=== PATIENT | male | born 1970 | race Caucasian/White ===

== ENCOUNTER 2019-06-23 12:57 | Emergency (ER) | payer SELFPAY ==
[2019-06-23 12:58] VITALS: BP 125/90; PULSE 50; RESP 18; TEMP 36.5; O2SAT 98; BMI 38.1
--- NOTE | 2019-06-23 13:26 | ED_ITS ---
HPI - Dizziness General: Chief Complaint: Dizziness Stated Complaint: gonzalez x 1 week, dizzy Time Seen by Provider: 06/23/19 13:12 Source: patient Mode of arrival: ambulatory Limitations: no limitations History of Present Illness: HPI Narrative: Patient comes in today for complaints of dizziness and headache for 1 week. Patient thought it may have just been his sinuses but became more concerned due to persistence of symptoms and his dizziness at times. Patient has a history of NE. Patient also takes routine medications for chronic foot pain. Patient appears well. Patient a ppears in no acute distress or pain. Associated symptoms: Reports headache(s) Review of Systems General: Reports: 10 or more systems reviewed and unremarkable except in HPI and below Neuro: Reports: headache and dizziness PFSH ED PFSH: Statuses (acute, chronic, etc) shown below reflect problem list status as previously entered and may not be historically accurate Social History Smoking and tobacco status: never smoked Physical Exam Const: COMMON NORMALS: no apparent distress and oriented x3 GENERAL APPEARANCE: cooperative HENMT: COMMON NORMALS: normocephalic, external ears normal, EAC's normal, TM's normal bilaterally and external nose normal HEAD & SCALP: normal to inspection and normocephalic FACE & SINUS: normal facial exam NOSE: external nose normal GENERAL EAR: hearing not grossly impaired EXTERNAL EAR: Yes external ears normal EXTERNAL AUDITORY CANAL: EAC's normal TYMPANIC MEMBRANE: TM's normal bilaterally MOUTH: oral and palatal mucosa normal THROAT: posterior oropharynx abnormal (post nasal drip) Eye: COMMON NORMALS: PERRL and EOMs intact bilaterally PUPIL: Yes PERRL Neck/C-Spine: COMMON NORMALS: full ROM and no lymphadenopathy Lymph: LYMPHATIC: no lymphedema noted Chest: COMMONS NORMALS: inspection of chest normal and palpation of chest normal Resp: COMMON NORMALS: normal respiratory effort and clear to auscultation bilaterally AUSCULTATION: clear to auscultation bilaterally Cardio: COMMON NORMALS: regular rate and regular rhythm RATE: regular rate RHYTHM: regular rhythm GI: COMMON NORMALS: normal to inspection, nondistended, normoactive bowel sounds and non-tender : COMMON NORMALS: Yes no CVA tenderness BLADDER/KIDNEY EXAM: Yes no CVA tenderness Back/Pelvis: COMMON NORMALS: no CVA tenderness and thoracic and lumbar spine normal to inspection Extremity: COMMON NORMALS: normal to inspection GENERAL: No edema Neuro: COMMON NORMALS: oriented x3, moves all extremities and no focal motor deficits Psych: COMMON NORMALS: mental status grossly normal and cooperative Skin: COMMON NORMALS: no rashes or lesions noted GENERAL SKIN EXAM: no rashes or lesions noted Course Vital Signs: Vital signs: Vital Signs Temperature 97.7 F 06/23/19 12:58 Pulse Rate 57 L 06/23/19 14:47 Respiratory Rate 16 06/23/19 14:47 Blood Pressure 119/75 06/23/19 14:47 Pulse Oximetry 97 06/23/19 14:47 MDM - Dizziness MDM Narrative: Medical decision making narrative: Patient comes in today with complaints of dizziness and nausea for 1 week. Patient also has an occasional headache. Patient appears well. Exam notes some dull bilateral tympanic membranes. Posterior pharynx has some drainage. Lungs are clear to auscultation. Skin is warm and dry and color is pink. Vital signs are stable. Differential diagnosis includes PE, CVA, TIA, uncontrolled hypertension, vestibular neuritis, sinusitis, otitis media. Laboratory values were insignif icant. CT of the head was negative for abnormality. D-dimer was negative. Believe the patient probably has vestibular neuritis. Recommend patient be given injection dexamethasone to help with the nausea and the dizziness. Patient should be treated otherwise with meclizine and amoxicillin. Encourage fluids rest and follow-up with primary care for persistent or worsening symptoms. Lab Data: Labs: Lab Results 06/23/19 06/23/19 06/23/19 Range/Units 13:56 13:56 13:56 WBC 5.1 (4.0-10.0) 10^3/ uL RBC 4.61 (4.1-5.3) 10^6/u L Hgb 14.2 (11.7-16.6) g/dL Hct 42.1 (42.0-52.0) % MCV 91.3 (80-94) fL MCH 30.8 (28.0-34.0) pg MCHC 33.7 (30.0-36.0) g/dL RDW 12.7 (12.1-15.1) % Plt Count 139 (130-400) 10^3/c mm MPV 10.1 (7.4-10.4) fL Neut % (Auto) 45.5 % Lymph % (Auto) 43.6 % Heard % (Auto) 7.3 % Eos % (Auto) 2.8 % Baso % (Auto) 0.6 % Neut # (Auto) 2.3 (1.8-7.7) 10^3/u L Lymph # (Auto) 2.2 (0.8-4.8) 10^3/u L Heard # (Auto) 0.4 (0.2-0.9) 10^3/u L Eos # (Auto) 0.1 (0.0-0.8) 10^3/u L Baso # (Auto) 0.0 (0.0-0.1) 10^3/u L Nucleated RBC % (a uto) 0 % Nucleated RBCs # 0.0 /100WBC D-Dimer 0.59 (0-0.59) ug/mIFE U Sodium 137 (136-145) mmol/L Potassium 4.0 (3.5-5.1) mmol/L Chloride 104 (98-107) mmol/L Carbon Dioxide 23 (22-29) mmol/L Anion Gap 14.0 (5-19) BUN 19 (6-20) mg/dL Creatinine 0.8 (0.7-1.2) mg/dL GFR Calculation 102.7 (90-130) mL/min Glucose 202 H (74-109) mg/dL Calcium 9.5 (8.6-10.0) mg/Dl Total Bilirubin 0.9 (0.15-1.2) mg/dL AST 19 (0-40) U/L ALT 23 (0-41) U/L Alkaline Phosphata se 69 (40-130) IU/L Total Protein 6.3 L (6.6-8.7) g/dL Albumin 4.4 (3.5-5.2) g/dL Globulin 1.9 (1.3-4.6) g/dL Discharge Plan Discharge Patient Disposition: Home, Self-Care Clinical Impression: Acute vestibular neuronitis Qualifiers: Laterality: unspecified laterality Qualified Code(s): H81.20 - Vestibular neuronitis, unspecified ear Condition: Stable Prescriptions: New meclizine 25 mg tablet 25 mg PO TID PRN (Reason: dizziness) Qty: 20 RF: 0 amoxicillin 500 mg capsule 1,000 mg PO Q12H 7 Days Qty: 28 RF: 0 No Action atorvastatin 40 mg Tablet 40 mg PO DAILY RF: 0 metformin 500 mg Tablet 500 mg PO BID RF: 0 Vitamin B-12 2,500 mcg Tablet, Sublingual 2,500 mcg SUBLINGUAL BID RF: 0 sulfasalazine 500 mg Tablet 0.5 g PO BID RF: 0 aspirin 325 mg Tablet 325 mg PO DAILY RF: 0 Vitamin C 500 mg Tablet 500 mg PO BID RF: 0 indomethacin 50 mg Capsule 100 mg PO BID RF: 0 multivitamin Capsule 1 cap PO DAILY RF: 0 metoprolol tartrate 25 mg Tablet 12.5 mg PO BID RF: 0 Fish Oil 1,000 mg (120 mg-180 mg) Capsule 1 cap PO BID RF: 0 clopidogrel 75 mg 75 mg PO DAILY RF: 0 Discharge Orders: Discharge Order (Routine); Ordered 06/23/19 Ordered By: Ishan Collins Referrals: Alok Gonzales MD [Primary Care Provider] - Discharge Diet: Usual diet Discharge Activity: Resume usual activity Activity Restrictions/Additional Instructions: Activity as tolerated Change position slowly Drink plenty of water Follow-up with primary care in one week for recheck Return to ER for high fever, worsening headache or new concerns Discharge Date/Time: 06/23/19 14:54 Coding Level of Care Code ED [employer]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
--- NOTE | 2019-06-23 13:26 | CT_ITS ---
WS: [id number] CT HEAD TECHNIQUE: Noncontrast CT of the head obtained from the skullbase to the vertex. CLINICAL INFORMATION: dizziness COMPARISON: 018 DLP: 8[address] scans at [facility] use at least one of these dose optimization techniques: automat ed exposure control; mA and/or kV adjustment per patient size (includes targeted exams where dose is matched to clinical indication); or iterative reconstruction. FINDINGS: No evidence of intracranial hemorrhage or mass effect. Ventricular system and basal cisterns are hoover nt. No extra-axial fluid collections. No evidence of mass or mass effect. Normal benitez-white different iation. Paranasal sinuses and mastoid air cells are well aerated. .Normal visualized soft tissues. CT/CT head wo con* [id number] IMPRESSION: 1. No evidence of intracranial hemorrhage or mass effect. 2. Normal benitez-white differentiation. 3. No acute intracranial findings.
--- NOTE | 2019-06-23 13:40 | ECG_ITS ---
Measurements Intervals [place] Rate: 61 P: 43 MI: 136 QRS: 66 QRSD: 106 T: 60 QT: 428 QTc: 431 SINUS RHYTHM WITH OCCASIONAL ECTOPIC PREMATURE COMPLEXES POSSIBLE INFERIOR MYOCARDIAL INFARCTION , PROBABLY OLD [30 ms Q WAVE IN II/aVF] Compared to ECG 07/02/2017 16:44:55 No significant changes Electronically Signed On 06-23-2019 14:41:44 PAGE MAKEUP SYSTEM OPERATOR by Harsha Conner M.D. [email or web address]
[2019-06-23 14:19] LABS: Basophils % 0.6 %; Eosinophils # 0.1 10^3/uL (0.0-0.8); Eosinophils % 2.8 %; Hematocrit 42.1 % (42.0-52.0); Hemoglobin 14.2 g/dL (11.7-16.6); Lymphocytes # 2.2 10^3/uL (0.8-4.8); Lymphocytes % 43.6 %; Mean Corpuscular HGB Conc 33.7 g/dL (30.0-36.0); Mean Corpuscular Hemoglobin 30.8 pg (28.0-34.0); Mean Corpuscular Volume 91.3 fL (80-94); Mean Platelet Volume 10.1 fL (7.4-10.4); Monocytes # 0.4 10^3/uL (0.2-0.9); Monocytes % 7.3 %; Neutrophils # 2.3 10^3/uL (1.8-7.7); Neutrophils % 45.5 %; Nucleated Red Blood Cells % 0 %; Platelet Count 139 10^3/cmm (130-400); Red Blood Count 4.61 10^6/uL (4.1-5.3); Red Cell Distribution Width 12.7 % (12.1-15.1); White Blood Count 5.1 10^3/uL (4.0-10.0)
[2019-06-23 14:35] LABS: D Dimer 0.59 ug/mIFEU (0-0.59)
[2019-06-23 14:38] LABS: Alanine Aminotransferase 23 U/L (0-41); Albumin Level 4.4 g/dL (3.5-5.2); Alkaline Phosphatase 69 IU/L (40-130); Aspartate Amino Transferase 19 U/L (0-40); Blood Urea Nitrogen 19 mg/dL (6-20); Calcium 9.5 mg/Dl (8.6-10.0); Carbon Dioxide 23 mmol/L (22-29); Chloride 104 mmol/L (98-107); Globulin 1.9 g/dL (1.3-4.6); Glomerular Filtration Rate 102.7 mL/min (90-130); Glucose 202 mg/dL (74-109); Sodium 137 mmol/L (136-145); Total Bilirubin 0.9 mg/dL (0.15-1.2); Total Protein 6.3 g/dL (6.6-8.7)
[2019-06-23] MEDS: dexamethasone 10 mg/mL INJ IM (14:45)
[2019-06-23 14:47] VITALS: BP 119/75; PULSE 57; RESP 16; O2SAT 97
== END 2019-06-23 14:54 | disposition home or self-care (01) ==
PROVIDERS: Emergency Provider Nurse Practitioner Family; Family Provider Family Medicine; PCP Family Medicine
DX: H81.20 Vestibular neuronitis, unspecified ear (principal); Z79.02 Long term (current) use of antithrombotics/antiplatelets; Z79.84 Long term (current) use of oral hypoglycemic drugs; Z79.82 Long term (current) use of aspirin
CPT/HCPCS: 36415; 70450; 80053; 85025; 85378; 93005; 96372; 99281; J1100

== ENCOUNTER → 2019-11-14 08:34 | Outpatient (BNVA) | payer BC, SELFPAY | PROVIDERS: Family Provider Family Medicine; PCP Family Medicine; Referring Provider Family Medicine; Visit Provider Orthopaedic Surgery | DX: M25.562 Pain in left knee (principal); M11.262 Other chondrocalcinosis, left knee; M22.42 Chondromalacia patellae, left knee; M25.561 Pain in right knee; M76.891 Other specified enthesopathies of right lower limb, excluding foot | CPT/HCPCS: 73560; 73565 ==

== ENCOUNTER 2019-11-23 14:45 | Outpatient (CLI) | payer SELFPAY ==
--- NOTE | 2019-11-23 15:15 | MR_ITS ---
WS: [id number] MRI LEFT KNEE HISTORY: M79.606 Pain in leg, unspecified COMPARISON: 2019 Anterior cruciate ligament: Intact. Posterior cruciate ligament: Intact. Medial collateral ligament: MCL is intact. Mild displacement by osteophytes from the medial knee. Posterior lateral corner structures: Fibular collateral ligament is intact. There is a small amount o f increased signal within the posterior lateral corner ligament. No full-thickness tear. Medial menisci: Horizontal tear in the posterior horn. Tear extends to the inferior articular surface . Lateral meniscus: Abnormal signal throughout the anterior horn. Anterior horn is small caliber and pa rtially extruded from the joint line. Mild blunting of the free edge of the posterior horn. Extensor mechanism: Distal quadriceps tendon is normal. Small amount of increased signal in the dista l patellar tendon. Fluid and soft tissue: Small to moderate suprapatellar joint effusion. There is soft tissue edema selam rounding the knee and a small amount of fluid surrounding the femoral condyles. Moderate-sized Timmons' s cyst. Osseous and articular structures: Patellofemoral compartment: Mild loss of cartilage over the patella. Focal defect over the lateral pa tellar facet from loss of cartilage. No marrow edema. Medial compartment: Moderate narrowing medial compartment with small osteophytes abutting the MCL. Lo ss of cartilage along the knee joint. No marrow with edema. Lateral compartment: Moderate narrowing of the lateral compartment. Meniscus is partially extruded fr om the joint space. There is a small cyst adjacent to the extruded meniscus. There is loss of cartila ge with fissuring throughout the compartment. No marrow edema. MR/MR knee LT wo con* [id number] IMPRESSION: 1. Moderate medial and lateral compartment internal derangement. 2. Extruded meniscus from the lateral compartment with a complex tear in the a nterior horn and blunting of the free edge of the posterior horn. 3. Horizontal tear posterior horn medial meniscus. 4. Moderate joint effusion. 5. Moderate-sized Timmons's cyst. 6. No fracture or marrow edema.
== END 2019-11-23 14:46 | disposition home or self-care (01) ==
LOC: RADSHAW 14:46
PROVIDERS: PCP Family Medicine; Visit Provider Orthopaedic Surgery
DX: S83.242A Other tear of medial meniscus, current injury, left knee, initial encounter (principal); X58.XXXA Exposure to other specified factors, initial encounter; M25.462 Effusion, left knee; M71.22 Synovial cyst of popliteal space [Baker], left knee
CPT/HCPCS: 73721

== ENCOUNTER → 2019-12-04 15:40 | Outpatient (BNVA) | payer BC, SELFPAY | PROVIDERS: PCP Family Medicine; Visit Provider Orthopaedic Surgery | DX: M25.572 Pain in left ankle and joints of left foot (principal) | CPT/HCPCS: 73610 ==

== ENCOUNTER 2019-12-13 09:20 | Day surgery (SDC) | payer BC, SELFPAY ==
[2019-12-12 08:18] VITALS: BMI 42.5
[2019-12-13] VITALS (8 sets, daily range): BP systolic 104–136; BP diastolic 73–105; PULSE 47–65; RESP 14–18; TEMP 36.3–37; O2SAT 95–100
--- NOTE | 2019-12-13 09:49 | W.PM.OPSUD ---
Surgery/Procedure H&P Update DATE OF PROCEDURE: December 13, 2019 DATE H&P PERFORMED: 12/04/19 H&P UPDATE INFORMATION: I have reviewed H&P completed within last 30 days and No changes to prior documentation PREOP DIAGNOSIS: Left medial meniscal tear, osteoarthritis left knee PLANNED PROCEDURE: Operation Date: 12/13/19 10:50 Proposed Procedures p Knee Arthroscopy medial meniscetomy and other indicated procedures [id number] S83.207A(Left) - Cirilo Merida MD
[2019-12-13] MEDS: sodium chloride 0.9% 1,000 ML 30 ML IV (10:16)
--- NOTE | 2019-12-13 10:26 | ANES.PREANE2 ---
Pre-Anesthetic Assessment Pre-Anesthetic Assessment: Height/Weight: Height 1.91 m Weight 154.221 kg Temp Pulse Resp BP Pulse Ox 97.4 F L 47 L 18 136/105 97 12/13/19 09:57 12/13/19 09:57 12/13/19 09:57 12/13/19 09:57 12/13/19 09:57 Preop Diagnosis: Left medial meniscal tear, osteoarthritis left knee Proposed Procedure: Operation Date: 12/13/19 10:50 Proposed Procedures p Knee Arthroscopy medial meniscetomy and other indicated procedures 34476 S83.207A(Left) - Cirilo Merida MD Familial anesthetic complications: Dad takes a long time to wake up from anesthesia Was Beta Binh taken within 24 hours: Yes Last intake: Intake Last Liquid Date 12/13/19 Last Liquid Time 08:30 Last Solid Date 12/12/19 Last Solid Time 19:55 Social: Social History: No alcohol and No tobacco Exam: Pre-Anes Outpt Exam: alert, oriented x 3, clear to auscultation bilaterally and regular rate & rhythm Airway: Cervical ROM: WNL MP: 4 Dentition: Other (Missing) Additional comments: says his septum is deviated (R > L) Pulmonary: Pulmonary: None reported CV/HEM: CV/HEM: CAD, HTN and CO (2012 - stents) Comments: last took plavix wednesday : : None reported Hepatic: Hepatic: None reported GI: GI: None reported Metabolic: Metabolic: DM and Morbid obesity Musc/skel: Comments: shoulder and neck pain Neuropsych: Neuropsych: None reported Anesthetic Plan: ASA status: 3 Anesthesia: General Risk of > 500 ml blood loss (7ml/kg in children): No Meds/Allergies Current Medications: Current Medications Generic Name Dose Route Start Last Admin Trade Name Freq PRN Reason Stop Dose Admin Sodium Chloride 1,000 mls @ 30 ml s/hr 12/13/19 09:45 12/13/19 10:16 Sodium Chloride 0.9% IV 12/14/19 09:44 30 mls/hr .Q24H JIMBO Administration PFSH Anesthesia PFSH: Social History Smoking and tobacco status: never smoked Second hand smoke exposure: No Current gender identity: Male Special hayden needs: No Data Anesthesia Cardiac Studies: No Data to Display
[2019-12-13 10:36] LABS: Glucose Point of Care 170 mg/dL (70-110)
[2019-12-13] MEDS: midazolam 1 mg/mL INJ 2 mL 2 MG IVP (10:39)
[2019-12-13] MEDS: morphine 4 mg/mL SDV 1 mL 8 MG XX (11:19)
--- NOTE | 2019-12-13 12:03 | PM.OP ---
Operative Report Date of procedure: December 13, 2019 Pre-op Diagnosis: Left medial meniscal tear, osteoarthritis left knee Post-op diagnosis: other (Left posterior medial meniscal tear, left anterior lateral meniscal tear, osteoarthritis left knee) Post-op Findings: Patient has complex tearing of the posterior middle third of the medial meniscus. He had a complex tear of his anterior lateral meniscus. He had generalized degenerative chondromalacia throughout the knee with thinning fibrillation and fraying of cartilage over the medial femoral condyle, lateral femoral condyle, patella and trochlea Procedure Done: Arthroscopic partial left medial and lateral meniscectomies Pathology: none sent Surgeon: Cirilo Merida Anesthesia: General Estimated blood loss (mL): 10 Tourniquet time (min): 22 Complications: None Findings: The patient had complex tearing involving the central 50% of the posterior medial meniscus. He had complex tearing involving approximately 75% of the anterior lateral meniscus. There is generalized fibrillation and thinning of the cartilage over the medial femoral condyle, lateral femoral condyle, patella and trochlea but no exposed subchondral bone was identified. His central stabilizing ligaments were intact. Condition: stable Disposition: PACU Procedure: The patient was taken to the operating room and given a general anesthesia. He was given Ancef preoperatively. His left lower extremity was prepped and draped in the usual fashion with a tourniquet on the left thigh. The knee was infiltrated with 30 cc of 0.5% Marcaine and 10 mg of morphine. The knee was entered through the standard inferior medial and inferior lateral portal. Upon entering the knee there is some generalized bleeding and the tourniquet was inflated to 350 mmHg. The medial meniscus was initially carefully probed. The slight valgus force across the knee allowed satisfactory axis the meniscus and a complex tearing was identified in the posterior third of the meniscus. Utilizing a basket, 4.5 mm incisor shaver, and Flores and Nephew Werewolf probe approximately the central 50% of the meniscus were excised leaving a stable base of tissue. Areas of fibrillation and fissures over the medial femoral condyle were lightly debrided back to a stable base. No point was exposed subchondral bone identified but cartilage loss was thought to extend more than 50% of that condyle. The leg was then placed in a [id number] position where complex tearing was identified of the lateral meniscus. Utilizing an incisor shaver and Flores and Nephew Werewolf unstable flaps and fissures the lateral meniscus were debrided. Approximately 70% of the anterior lateral meniscus was removed. Areas of fibrillation and fraying similarly over the lateral femoral condyle were lightly debrided back as performed medially again revealing no exposed subchondral bone. Finally attention was focused on the patella and trochlea. Areas of trochlear wear with peripheral flaps medially and laterally over the trochlea were debrided back with the werewolf probe. Involvement of cartilage was thought to be at least 50% but no exposed subchondral bone was identified. Final attention was focused to the underside of the patella which was similarly debrided again revealing no exposed subchondral bone but thinning of the cartilage. The knee was then irrigated with saline. Portals were closed with 3-0 Prolene. The patient was extubated and taken to the recovery room in stable condition.
[2019-12-13] MEDS: ondansetron 2 mg/ML SDV 2 mL 4 MG IVP (12:33)
[2019-12-13] MEDS: metoclopramide 5 mg/mL SDV 2 mL 10 MG IVP (13:17)
[2019-12-13] MEDS: oxyCODONE-APAP 5-325 mg Tablet 1 TAB PO (13:50)
== END 2019-12-13 14:30 | disposition home or self-care (01) ==
PROVIDERS: PCP Family Medicine; Visit Provider Orthopaedic Surgery
PROC: (CPT 29870; principal; 2019-12-13 10:50)
DX: S83.242A Other tear of medial meniscus, current injury, left knee, initial encounter (principal); X58.XXXA Exposure to other specified factors, initial encounter; M17.12 Unilateral primary osteoarthritis, left knee; I25.10 Atherosclerotic heart disease of native coronary artery without angina pectoris; I10 Essential (primary) hypertension; I25.2 Old myocardial infarction; Z95.5 Presence of coronary angioplasty implant and graft; E11.9 Type 2 diabetes mellitus without complications; E66.01 Morbid (severe) obesity due to excess calories; Z68.41 Body mass index [BMI] 40.0-44.9, adult; Z79.02 Long term (current) use of antithrombotics/antiplatelets; Z79.82 Long term (current) use of aspirin; Z79.84 Long term (current) use of oral hypoglycemic drugs
CPT/HCPCS: 29880; 12345; 36416; 82962; 96365; 96374; 96375; J0690; J1100; J2001; J2250; J2270; J2405; J2704; J2765; J3010; J3490; J7030

== ENCOUNTER 2021-01-29 22:26 | Emergency (ER) | payer SELFPAY ==
[2021-01-29 23:31] VITALS: BP 118/26; PULSE 105; RESP 24; TEMP 37.3; O2SAT 93; BMI 39.2
--- NOTE | 2021-01-29 23:50 | XRR_ITS ---
PROCEDURE INFORMATION: Exam: XR Chest Exam date and time: 01/29/2021 11:50 PM Age: 51 years old Clinical indication: Cough and shortness of breath; Additional info: Covid, cough TECHNIQUE: Imaging protocol: XR of the chest. Views: 1 view. COMPARISON: 1. CR XR knees AP WB w RT lmt ORTH 2019-11-14 08:[address] Cervical Spine wo* [id number] 2017-07-02 17:22 3. ES surgery / GI images 2019-12-13 10:27 FINDINGS: Lungs: Mild moderate patchy lung opacities. Pleural spaces: Unremarkable. No pleural effusion. No pneumothorax. Heart/Mediastinum: Unremarkable. No cardiomegaly. Bones/joints: Unremarkable. XR/XR chest 1V portable [id number] IMPRESSION: Mild moderate patchy lung opacities.
[2021-01-30 00:56] LABS: Glucose Point of Care 254 mg/dL (70-110)
--- NOTE | 2021-01-30 00:58 | W.ED.SOB ---
HPI - SOB/Dyspnea General: Chief Complaint: Shortness of Breath/Dyspnea Stated Complaint: Covid\Dehydrated Time Seen by Provider: 01/30/21 00:09 Source: patient Mode of arrival: ambulatory Limitations: no limitations History of Present Illness: HPI Narrative: 51-year-old male states he is been feeling unwell for last 7 to 10 days. States his girlfriend was diagnosed with Covid over 2 weeks ago when he started to feel sick about 9 to 10 days ago. He states he been having body aches chills and fevers. States had decreased appetite along with nausea and decreased energy. He has had a slight cough and shortness of breath. Denies any diarrhea. He denies any worsening improving factors. Patient here has no severe distress and pulse ox is normal. He is able to speak in full sentences. Associated symptoms: Reports fever(s) and nausea; Deny chest pain Review of Systems Const: Reports: fever(s), chills and body aches Eyes: Denies: blurry vision or eye discomfort ENMT: Denies: throat pain or dental pain Card: Denies: chest pain Resp: Reports: non-productive cough; Denies: dyspnea GI: Reports: nausea : Denies: dysuria Musc: Denies: neck pain or back pain Skin/Breast: Denies: rash Neuro: Denies: headache(s) Psych: Denies: depression Tadeo/Lymph: Denies: easy bruising All/Imm: Denies: urticaria PFS ED PFSH: Medical History (Updated 01/30/21 @ 04:48 by David Schneider MD) Chest pain Shortness of breath Social History Smoking and tobacco status: never smoked Second hand smoke exposure: No Current gender identity: Male Special hayden needs: No Physical Exam Const: COMMON NORMALS: no acute distress and patient oriented x3 GENERAL APPEARANCE: ill appearing HENMT: COMMON NORMALS: normocephalic and atraumatic HEAD & SCALP: normocephalic and atraumatic Eye: COMMON NORMALS: Equal, round and reactive pupils present and EOMs intact bilaterally PUPIL: Yes Equal, round and reactive pupils present Neck/C-Spine: COMMON NORMALS: full ROM and supple Chest: COMMONS NORMALS: normal inspection of the chest and normal palpation of entire chest wall Resp: COMMON NORMALS: normal respiratory effort, No retractions, No use of accessory muscles and clear to auscultation bilaterally AUSCULTATION: clear to auscultation bilaterally Cardio: COMMON NORMALS: regular rate, regular rhythm and No murmurs present (Cardio) RATE: regular rate RHYTHM: regular rhythm GI: COMMON NORMALS: Normal to inspection, nondistended, normoactive bowel sounds present, Soft to palpation, non-tender and no masses PALPATION: Yes Soft to palpation Extremity: COMMON NORMALS: normal to inspection and full ROM Neuro: COMMON NORMALS: patient oriented x3, moves all extremities and no focal motor deficits Psych: COMMON NORMALS: mental status grossly normal, Normal thought process present and cooperative THOUGHT PROCESS: Normal thought process present Skin: COMMON NORMALS: no rashes or lesions noted and no wounds GENERAL SKIN EXAM: no rashes or lesions noted Course Vital Signs: Vital signs: Vital Signs Temperature 99.1 F 01/29/21 23:31 Pulse Rate 89 01/30/21 05:32 Respiratory Rate 14 01/30/21 05:32 Blood Pressure 120/81 01/30/21 05:32 Pulse Oximetry 90 01/30/21 05:32 MDM - SOB/Dyspnea MDM Narrative: Medical decision making narrative: Patient presents here with cough congestion dyspnea likely pneumonia or viral pneumonia. His rapid Covid was negative will do a send off as he has had contact and this very well could be Covid as well. Will place patient on antibiotics. His lab work here is otherwise normal and he has no hypoxia here. He had some abdominal pain CT abdomen here was normal. Patient sent home with a pulse ox and he is return if he has any hypoxia. He understands and agrees to plan. Lab Data: Labs: Lab Results 01/30/21 01/30/21 01/30/21 Range/Units 00:51 01:15 01:15 WBC 8.1 (4.0-10.0) 10^3/ uL RBC 4.63 (4.1-5.3) 10^6/u L Hgb 14.9 (11.7-16.6) g/dL Hct 43.0 (42.0-52.0) % MCV 92.9 (80-94) fl MCH 32.2 (28.0-34.0) pg MCHC 34.7 (30.0-36.0) g/dL RDW 11.7 L (12.1-15.1) % Plt Count 157 (130-400) 10^3/c mm MPV 10.9 H (7.4-10.4) fL Neut % (Auto) 65.6 % Lymph % (Auto) 19.7 % [place] % (Auto) 13.1 % Eos % (Auto) 0.7 % Baso % (Auto) 0.4 % Neut # (Auto) 5.32 (1.8-7.7) 10^3/u L Lymph # (Auto) 1.6 (0.8-4.8) 10^3/u L [place] # (Auto) 1.1 H (0.2-0.9) 10^3/u L Eos # (Auto) 0.1 (0.0-0.8) 10^3/u L Baso # (Auto) 0.0 (0.0-0.1) 10^3/u L Nucleated RBC % (a uto) 0 % Nucleated RBCs # 0.0 /100WBC Sodium 132 L (136-145) mmol/L Potassium 4.5 (3.5-5.1) mmol/L Chloride 93 L (98-107) mmol/L Carbon Dioxide 24 (22-29) mmol/L Anion Gap 19.5 H (5-19) BUN 8 (6-20) mg/dL Creatinine 0.7 (0.7-1.2) mg/dL GFR Calculation 118.9 (90-130) mL/min Glucose 235 H (65-115) mg/dL POC Glucose 254 H (70-110) mg/dL Calculated Osmolal ity 280 L (285-295) mOsm/k g Lactic Acid (0.5-2.2) mmol/L Calcium 9.2 (8.5-10.5) mg/dL Total Bilirubin 1.3 H (0.15-1.2) mg/dL AST 30 (0-40) U/L ALT 35 (0-41) U/L Alkaline Phosphata se 75 (40-130) IU/L C-Reactive Protein 126.4 H (0.0-4.9) mg/L Total Protein 7.0 (6.6-8.7) g/dL Albumin 3.8 (3.5-5.2) g/dL Globulin 3.2 (1.3-4.6) g/dL Urine Color (Yellow) Urine Appearance (CLEAR) Urine pH (5-7) Ur Specific Gravit y (1.005-1.030) Urine Protein (Negative) Urine Glucose (UA) (Normal) Urine Ketones (Negative) Urine Blood (Negative) Urine Nitrate (Negative) Urine Bilirubin (Negative) Urine Urobilinogen (Negative) mg/dL Ur Leukocyte Shanta ase (Negative) SARS-CoV-2 Ag (Rap id) (Negative) 01/30/21 01/30/21 01/30/21 Range/Units 01:15 01:25 02:25 WBC (4.0-10.0) 10^3/ uL RBC (4.1-5.3) 10^6/u L Hgb (11.7-16.6) g/dL Hct (42.0-52.0) % MCV (80-94) fl MCH (28.0-34.0) pg MCHC (30.0-36.0) g/dL RDW (12.1-15.1) % Plt Count (130-400) 10^3/c mm MPV (7.4-10.4) fL Neut % (Auto) % Lymph % (Auto) % [place] % (Auto) % Eos % (Auto) % Baso % (Auto) % Neut # (Auto) (1.8-7.7) 10^3/u L Lymph # (Auto) (0.8-4.8) 10^3/u L [place] # (Auto) (0.2-0.9) 10^3/u L Eos # (Auto) (0.0-0.8) 10^3/u L Baso # (Auto) (0.0-0.1) 10^3/u L Nucleated RBC % (a uto) % Nucleated RBCs # /100WBC Sodium (136-145) mmol/L Potassium (3.5-5.1) mmol/L Chloride (98-107) mmol/L Carbon Dioxide (22-29) mmol/L Anion Gap (5-19) BUN (6-20) mg/dL Creatinine (0.7-1.2) mg/dL GFR Calculation (90-130) mL/min Glucose (65-115) mg/dL POC Glucose (70-110) mg/dL Calculated Osmolal ity (285-295) mOsm/k g Lactic Acid 2.5 H (0.5-2.2) mmol/L Calcium (8.5-10.5) mg/dL Total Bilirubin (0.15-1.2) mg/dL AST (0-40) U/L ALT (0-41) U/L Alkaline Phosphata se (40-130) IU/L C-Reactive Protein (0.0-4.9) mg/L Total Protein (6.6-8.7) g/dL Albumin (3.5-5.2) g/dL Globulin (1.3-4.6) g/dL Urine Color Yellow (Yellow) Urine Appearance Clear (CLEAR) Urine pH 7 (5-7) Ur Specific Gravit y 1.000 L (1.005-1.030) Urine Protein Neg (Negative) Urine Glucose (UA) 2+ H (Normal) Urine Ketones 1+ H (Negative) Urine Blood Neg (Negative) Urine Nitrate Negative (Negative) Urine Bilirubin Neg (Negative) Urine Urobilinogen Norm (Negative) mg/dL Ur Leukocyte Shanta ase Negative (Negative) SARS-CoV-2 Ag (Rap id) Negative (Negative) Imaging Data^: CXR: Attestation: I personally reviewed and interpreted this imaging study as follows: Radiologist's impression: [address] [address] XRay Report Signed Patient: Stanley Betts Unit #: [id number] : 1970 Age/Sex: 51 / M ADM Date: 01/29/21 Loc: ER Room/Bed: Attending Dr: Ordering Provider/Ordering MD: Ishan Collins NP Date of Service: 01/29/21 Procedure(s): XR chest 1V portable [id number] Accession Number(s): [id number] Report Number: [id number] PROCEDURE INFORMATION: Exam: XR Chest Exam date and time: 01/29/2021 11:50 PM Age: 51 years old Clinical indication: Cough and shortness of breath; Additional info: Covid, cough TECHNIQUE: Imaging protocol: XR of the chest. Views: 1 view. COMPARISON: 1. CR XR knees AP WB w RT lmt ORTH 2019-11-14 08:[address] Cervical Spine wo* [id number] 2017-07-02 17:22 3. ES surgery / GI images 2019-12-13 10:27 FINDINGS: Lungs: Mild moderate patchy lung opacities. Pleural spaces: Unremarkable. No pleural effusion. No pneumothorax. Heart/Mediastinum: Unremarkable. No cardiomegaly. Bones/joints: Unremarkable. XR/XR chest 1V portable [id number] IMPRESSION: Mild moderate patchy lung opacities. Dictated By: Freddie Kowalski MD Signed By: Freddie Kowalski MD Signed Date/Time: 01/30/21210 DD/ 9 Discharge Plan Discharge Patient Disposition: Home Clinical Impression: Acute viral syndrome Pneumonia Qualifiers: Pneumonia type: due to unspecified organism Laterality: bilateral Lung location: unspecified part of lung Qualified Code(s): J18.9 - Pneumonia, unspecified organism Condition: Stable Prescriptions: New doxycycline hyclate 100 mg tablet 100 mg PO BID 7 Days Qty: 14 RF: 0 Medrol (Partha) 4 mg tablets,dose pack See Rx Instructions .ROUTE .COMPLEX Qty: 21 RF: 0 No Action aspirin [Adult Low Dose Aspirin] 81 mg tablet,delayed release (DR/EC) 162 mg PO DAILY Qty: 60 RF: 3 clopidogrel [Plavix] 75 mg tablet 75 mg PO DAILY Qty: 90 RF: 3 metoprolol tartrate 25 mg tablet 25 mg PO BID Qty: 180 RF: 3 atorvastatin 40 mg tablet 40 mg PO DAILY Qty: 30 RF: 0 metformin 500 mg Tablet 500 mg PO BID RF: 0 cyanocobalamin (vitamin B-12) [Vitamin B-12] 2,500 mcg Tablet, Sublingual 2,500 mcg SUBLINGUAL BID RF: 0 ascorbic acid (vitamin C) [Vitamin C] 500 mg Tablet 500 mg PO BID RF: 0 indomethacin 50 mg Capsule 100 mg PO BID RF: 0 multivitamin Capsule 1 cap PO DAILY RF: 0 omega 9-mpg-fen-fish oil [Fish Oil] 1,000 mg (120 mg-180 mg) Capsule 1 cap PO BID RF: 0 meclizine 25 mg tablet 25 mg PO TID PRN (Reason: dizziness) Qty: 20 RF: 0 Discharge Orders: Discharge ED (Routine); Ordered 01/30/21 Ordered By: David Schneider Discharge Diet: Advance as tolerated Discharge Activity: Resume usual activity Patient Instructions: Viral Syndrome (ED), Pneumonia (ED) Coding Level of Care Code ED Haunted History Tour Guide for Dariana Fwd Exam Comprehensive
[2021-01-30 01:32] LABS: Basophils % 0.4 %; Eosinophils # 0.1 10^3/uL (0.0-0.8); Eosinophils % 0.7 %; Hemoglobin 14.9 g/dL (11.7-16.6); Lymphocytes # 1.6 10^3/uL (0.8-4.8); Lymphocytes % 19.7 %; Mean Corpuscular HGB Conc 34.7 g/dL (30.0-36.0); Mean Corpuscular Hemoglobin 32.2 pg (28.0-34.0); Mean Corpuscular Volume 92.9 fl (80-94); Mean Platelet Volume 10.9 fL (7.4-10.4); Monocytes # 1.1 10^3/uL (0.2-0.9); Monocytes % 13.1 %; Neutrophils # 5.32 10^3/uL (1.8-7.7); Neutrophils % 65.6 %; Nucleated Red Blood Cells % 0 %; Platelet Count 157 10^3/cmm (130-400); Red Blood Count 4.63 10^6/uL (4.1-5.3); Red Cell Distribution Width 11.7 % (12.1-15.1); White Blood Count 8.1 10^3/uL (4.0-10.0)
[2021-01-30 01:54] LABS: Lactic Sepsis W/Reflex 2.5 mmol/L (0.5-2.2)
[2021-01-30 01:55] LABS: Alanine Aminotransferase 35 U/L (0-41); Albumin Level 3.8 g/dL (3.5-5.2); Alkaline Phosphatase 75 IU/L (40-130); Anion Gap 19.5 (5-19); Aspartate Amino Transferase 30 U/L (0-40); Blood Urea Nitrogen 8 mg/dL (6-20); C Reactive Protein 126.4 mg/L (0.0-4.9); Calcium 9.2 mg/dL (8.5-10.5); Carbon Dioxide 24 mmol/L (22-29); Chloride 93 mmol/L (98-107); Globulin 3.2 g/dL (1.3-4.6); Glomerular Filtration Rate 118.9 mL/min (90-130); Glucose 235 mg/dL (65-115); Osmolality Calculated 280 mOsm/kg (285-295); Potassium 4.5 mmol/L (3.5-5.1); Sodium 132 mmol/L (136-145); Total Bilirubin 1.3 mg/dL (0.15-1.2)
[2021-01-30 02:13] LABS: Slide Review Slide Review Perform
[2021-01-30] MEDS: sodium chloride 0.9% 1,000 ML 999 ML IV (02:13)
[2021-01-30 02:19] VITALS: RESP 20
[2021-01-30] MEDS: morphine 4 mg/mL SDV 1 mL IVP (02:19)
[2021-01-30] MEDS: ondansetron 2 mg/ML SDV 2 mL 4 MG IVP (02:19)
[2021-01-30 02:22] LABS: SARS Covid-2 Antigen Negative (Negative)
[2021-01-30 02:30] LABS: Add Urine Microscopic? NO; Charge for UA Resulting for Rev
[2021-01-30 02:32] LABS: Bilirubin Urine Neg (Negative); Blood Urine Neg (Negative); Glucose Urine UA 2+ (Normal); Ketones Urine 1+ (Negative); Leukocyte Esterase Urine Negative (Negative); Nitrate Urine Negative (Negative); Protein Urine Neg (Negative); Urine Appearance Clear (CLEAR); Urine Color Yellow (Yellow); Urobilinogen Urine Norm (Negative); pH Urine 7 (5-7)
--- NOTE | 2021-01-30 03:03 | CTR_ITS ---
PROCEDURE INFORMATION: Exam: CT Abdomen And Pelvis With Contrast Exam date and time: 01/30/2021 3:03 AM Age: 51 years old Clinical indication: Abdominal pain; Localized; Prior surgery; Surgery type: Coronary stent; Patient HX: Left sided abd and groin pain. ; Additional info: Abd pain TECHNIQUE: Imaging protocol: Computed tomography of the abdomen and pelvis with contrast. Radiation optimization: All CT scans at this facility use at least one of these dose optimization techniques: automated exposure control; mA and/or kV adjustment per patient size (includes targeted exams where dose is matched to clinical indication); or iterative reconstruction. Contrast material: OMNI 300; Contrast volume: 95 ml; Contrast route: INTRAVENOUS (IV); COMPARISON: CR XR knees AP WB w RT lmt ORTH 11/14/2019 8:40 AM RADIATION DOSE METRICS: Total DLP (mGy-cm): 2051.17 FINDINGS: Lungs: Ground-glass opacities in the lung bases, right greater than left, compatible with viral pneumonia. Liver: Normal. No mass. Gallbladder and bile ducts: No calcified stones. No pericholecystic inflammatory changes. No ductal dilation. Pancreas: Normal. No ductal dilation. Spleen: No splenomegaly. Adrenal glands: Normal. No mass. Kidneys and ureters: Normal. No hydronephrosis. Stomach and bowel: No obstruction. No wall thickening. Appendix: Normal appendix. Intraperitoneal space: No free air. No significant fluid collection. Vasculature: No abdominal aortic aneurysm. Lymph nodes: No enlarged lymph nodes. Urinary bladder: Unremarkable as visualized. Reproductive: Enlarged prostate gland which protrudes into the base of the urinary bladder. Bones/joints: Unremarkable. No acute fracture. Soft tissues: No abnormality in the left groin. CT/CT abdomen pelvis w con* [id number] IMPRESSION: 1. Enlarged prostate gland which protrudes into the base of the urinary bladder. 2. Ground-glass opacities in the lung bases, right greater than left, compatible with viral pneumonia. Radiation Dose CTDIVOL = (mGy): DLP = 2051.17 (mGy-cm)
[2021-01-30] MEDS: iohexol 300 mg/mL 100 mL Btl IV (03:13)
[2021-01-30 03:17] LABS: Reflex Lactate Order REFLEX LACTIC ORDERD
[2021-01-30] MEDS: metoclopramide 5 mg/mL SDV 2 mL IVP (04:05)
[2021-01-30] MEDS: diphenhydrAMINE 50 mg/mL SDV 1mL 25 MG IVP (04:06)
[2021-01-30 05:32] VITALS: BP 120/81; PULSE 89; RESP 14; O2SAT 90
== END 2021-01-30 06:03 | disposition home or self-care (01) ==
PROVIDERS: Nurse Practitioner Family; Emergency Provider Emergency Medicine
DX: J18.9 Pneumonia, unspecified organism (principal); B34.9 Viral infection, unspecified; Z79.84 Long term (current) use of oral hypoglycemic drugs; Z79.02 Long term (current) use of antithrombotics/antiplatelets; Z79.82 Long term (current) use of aspirin; Z20.822 Contact with and (suspected) exposure to COVID-19
CPT/HCPCS: 36416; 71045; 74177; 80053; 81003; 82962; 83605; 85025; 86140; 87426; 96361; 96374; 96375; 99284; J1200; J2270; J2405; J2765; J7030; Q9967

== ENCOUNTER 2021-06-18 08:39 | Observation (INO) | payer SELFPAY ==
[2021-06-18] VITALS (8 sets, daily range): BP systolic 106–117; BP diastolic 69–83; PULSE 57–83; RESP 16–21; TEMP 36.4–36.8; O2SAT 95–97; BMI 39.2
--- NOTE | 2021-06-18 08:41 | ECG_ITS ---
[facility] Test Date: 2021-06-18 Pat Name: Stanley Betts Department: Room: Gender: Male Research Methodologist: : 1970 Requested By: Sissy Gill Order Number: [id number] Sugar MD: Carmina Wallace M.D. Measurements Intervals [place] Rate: 75 P: 27 UT: 162 QRS: 11 QRSD: 114 T: -31 QT: 394 QTc: 441 Interpretive Statements SINUS RHYTHM WITH OCCASIONAL VENTRICULAR PREMATURE COMPLEXES Compared to ECG 06/23/2019 13:50:42 Ventricular premature complex(es) now present Myocardial infarct finding no longer present Electronically Signed On 06-19-2021 20:36:01 SINGLE CORNER CUTTER by Carmina Wallace M.D. [id number]
--- NOTE | 2021-06-18 08:41 | XRR_ITS ---
PROCEDURE INFORMATION: Exam: XR Chest Exam date and time: 06/18/2021 8:41 AM Age: 51 years old Clinical indication: Pain; Angina pectoris; Additional info: Chest pain TECHNIQUE: Imaging protocol: XR of the chest. Views: 1 view. Total images: 1 COMPARISON: CR XR chest 1V portable [id number] 01/30/2021 12:24 AM FINDINGS: Lungs: Unremarkable. No consolidation. Pleural spaces: Unremarkable. No pleural effusion. No pneumothorax. Heart/Mediastinum: Unremarkable. No cardiomegaly. Bones/joints: Osseous structures are unchanged from the prior exam. XR/XR chest 1V portable [id number] IMPRESSION: No acute findings.
--- NOTE | 2021-06-18 08:46 | W.ED.CHESTPA ---
HPI - Chest Pain General: Chief Complaint: Chest Pain Stated Complaint: CHEST PAIN Time Seen by Provider: 06/18/21 08:41 History of Present Illness: HPI narrative: 51-year-old male with history of CAD presents with chest pain. States this started approximately 5 hours prior to arrival. Describes pressure-like pain radiating to the left arm. States this feels like similar heart attacks. Denies any lower extremity pain or swelling. No shortness of breath fevers chills nausea or vomiting. Did receive nitroglycerin and full-strength aspirin by EMS. States pain has now subsided. Review of Systems Narrative: - CONSTITUTIONAL: Denies weight loss, fever and chills. - HEENT: Denies changes in vision and hearing. - RESPIRATORY: Denies SOB and cough. - CV: As above - GI: Denies abdominal pain, nausea, vomiting and diarrhea. - : Denies dysuria and urinary frequency. - MSK: Denies myalgia and joint pain. - SKIN: Denies rash and pruritus. - NEUROLOGICAL: Denies headache, weakness, numbness and syncope. - PSYCHIATRIC: Denies suicidal ideation PFS ED PFSH: Medical History Chest pain Shortness of breath Social History Smoking and tobacco status: never smoked Second hand smoke exposure: No Current gender identity: Male Special hayden needs: No Physical Exam Narrative: EXAM NARRATIVE: - GENERAL: Alert and oriented x 3. No acute distress. Well-nourished. - EYES: EOMI. Anicteric. - HENT: Atraumatic, no C-spine tenderness. Moist mucous membranes. No scleral icterus. No cervical lymphadenopathy. - LUNGS: Clear to auscultation bilaterally. No accessory muscle use. Equal lung sounds bilaterally. No respiratory distress. - CARDIOVASCULAR: Regular rate and rhythm. No murmur. No JVD. - ABDOMEN: Soft, non-tender and non-distended. Negative CVA tenderness bilaterally, no rebound or guarding, negative Robles sign. No palpable masses. - EXTREMITIES: No edema. Non-tender. - SKIN: No rashes or lesions. Warm. - NEUROLOGIC: No meningismus or focal neurological deficits. CN II-XII grossly intact. - PSYCHIATRIC: Cooperative. Appropriate mood and affect. Course Vital Signs: Vital signs: Vital Signs Temperature 98.0 F 06/18/21 08:40 Pulse Rate 83 06/18/21 08:40 Respiratory Rate 17 06/18/21 08:40 Blood Pressure 112/83 06/18/21 08:40 Pulse Oximetry 97 06/18/21 08:40 MDM - Chest Pain MDM Narrative: Medical decision making narrative: 51-year-old male with history of CAD presents with chest pain. Significantly improved after nitro. He received aspirin. Does have elevated heart score but EKG and troponin not revealing sign of acute ischemia or other acute abnormality. X-ray does not reveal pneumothorax or consolidation. D-dimer is negative. Remainder of lab work and imaging reviewed. Discussed with hospitalist and they agreed patient would benefit from admission. Patient admitted in stable condition. Further evaluation management per hospitalist team. Lab Data: Labs: Lab Results 06/18/21 06/18/21 06/18/21 08:15 08:15 08:15 WBC 7.1 10^3/uL 10^3/ uL (4.0-10.0) RBC 5.09 10^6/uL 10^6 /uL (4.1-5.3) Hgb 16.6 g/dL g/dL (11.7-16.6) Hct 45.2 % % (42.0-52.0) MCV 88.8 fl fl (80-94) MCH 32.6 pg pg (28.0-34.0) MCHC 36.7 g/dL H g/dL (30.0-36.0) RDW 11.9 % L % (12.1-15.1) Plt Count 143 10^3/cmm 10^3 /cmm (130-400) MPV 10.7 fL H fL (7.4-10.4) Neut % (Auto) 51.2 % % Lymph % (Auto) 39.2 % % [place] % (Auto) 6.4 % % Eos % (Auto) 2.3 % % Baso % (Auto) 0.8 % % Neut # (Auto) 3.62 10^3/uL 10^3 /uL (1.8-7.7) Lymph # (Auto) 2.8 10^3/uL 10^3/ uL (0.8-4.8) [place] # (Auto) 0.5 10^3/uL 10^3/ uL (0.2-0.9) Eos # (Auto) 0.2 10^3/uL 10^3/ uL (0.0-0.8) Baso # (Auto) 0.1 10^3/uL 10^3/ uL (0.0-0.1) Nucleated RBC % (a uto) 0 % % Nucleated RBCs # 0.0 /100WBC /100W BC PT INR APTT D-Dimer Sodium 135 mmol/L L mmol /L (136-145) Potassium 4.5 mmol/L mmol/L (3.5-5.1) Chloride 101 mmol/L mmol/L (98-107) Carbon Dioxide 22 mmol/L mmol/L (22-29) Anion Gap 16.5 (5-19) BUN 12 mg/dL mg/dL (6-20) Creatinine 0.7 mg/dL mg/dL (0.7-1.2) GFR Calculation 118.9 mL/min mL/m in (90-130) Glucose 340 mg/dL H mg/dL (65-115) Calculated Osmolal ity 293 mOsm/kg mOsm/ kg (285-295) Calcium 9.0 mg/dL mg/dL (8.5-10.5) Total Bilirubin 0.5 mg/dL mg/dL (0.15-1.2) AST 19 U/L U/L (0-40) ALT 28 U/L U/L (0-41) Alkaline Phosphata se 70 IU/L IU/L (40-130) Troponin T Baselin e 7 ng/L ng/L (0-15) NT-Pro-B Natriuret Pep 59 pg/mL pg/mL (0-125) Total Protein 6.4 g/dL L g/dL (6.6-8.7) Albumin 4.3 g/dL g/dL (3.5-5.2) Globulin 2.1 g/dL g/dL (1.3-4.6) Lipase 40 U/L U/L (13-60) 06/18/21 08:15 WBC RBC Hgb Hct MCV MCH MCHC RDW Plt Count MPV Neut % (Auto) Lymph % (Auto) [place] % (Auto) Eos % (Auto) Baso % (Auto) Neut # (Auto) Lymph # (Auto) [place] # (Auto) Eos # (Auto) Baso # (Auto) Nucleated RBC % (a uto) Nucleated RBCs # PT 12.80 SECONDS SEC ONDS (12.1-14.9) INR 0.93 (0.8-1.2) APTT 24.7 SECONDS SECO NDS (23.9-36.7) D-Dimer 0.45 ug/mIFEU ug/ mIFEU (0-0.59) Sodium Potassium Chloride Carbon Dioxide Anion Gap BUN Creatinine GFR Calculation Glucose Calculated Osmolal ity Calcium Total Bilirubin AST ALT Alkaline Phosphata se Troponin T Baselin e NT-Pro-B Natriuret Pep Total Protein Albumin Globulin Lipase EKG Data^: EKG 1: Other EKG comments: Normal sinus rhythm with occasional PVC, rate 75, no sign of acute ischemia or other acute abnormality. Discharge Plan Discharge Prescriptions: No Action dexamethasone 4 mg tablet 4 mg PO DAILY 7 Days Qty: 7 RF: 0 azithromycin 250 mg tablet See Rx Instructions PO .COMPLEX Qty: 6 RF: 0 clopidogrel [Plavix] 75 mg tablet 75 mg PO DAILY Qty: 90 RF: 3 metoprolol tartrate 25 mg tablet 25 mg PO BID Qty: 180 RF: 3 aspirin [Adult Low Dose Aspirin] 81 mg tablet,delayed release (DR/EC) 162 mg PO DAILY Qty: 180 RF: 3 atorvastatin 40 mg tablet 40 mg PO DAILY Qty: 90 RF: 3 metformin 500 mg Tablet 500 mg PO BID RF: 0 cyanocobalamin (vitamin B-12) [Vitamin B-12] 2,500 mcg Tablet, Sublingual 2,500 mcg SUBLINGUAL BID RF: 0 ascorbic acid (vitamin C) [Vitamin C] 500 mg Tablet 500 mg PO BID RF: 0 indomethacin 50 mg Capsule 100 mg PO BID RF: 0 multivitamin Capsule 1 cap PO DAILY RF: 0 omega 6-gqj-hbr-fish oil [Fish Oil] 1,000 mg (120 mg-180 mg) Capsule 1 cap PO BID RF: 0 meclizine 25 mg tablet 25 mg PO TID PRN (Reason: dizziness) Qty: 20 RF: 0 Coding Level of Care Code ED Engraver Automatic for Chg Cheko
[2021-06-18 08:59] LABS: Basophils # 0.1 10^3/uL (0.0-0.1); Basophils % 0.8 %; Eosinophils # 0.2 10^3/uL (0.0-0.8); Eosinophils % 2.3 %; Hematocrit 45.2 % (42.0-52.0); Hemoglobin 16.6 g/dL (11.7-16.6); Lymphocytes # 2.8 10^3/uL (0.8-4.8); Lymphocytes % 39.2 %; Mean Corpuscular HGB Conc 36.7 g/dL (30.0-36.0); Mean Corpuscular Hemoglobin 32.6 pg (28.0-34.0); Mean Corpuscular Volume 88.8 fl (80-94); Mean Platelet Volume 10.7 fL (7.4-10.4); Monocytes # 0.5 10^3/uL (0.2-0.9); Monocytes % 6.4 %; Neutrophils # 3.62 10^3/uL (1.8-7.7); Neutrophils % 51.2 %; Nucleated Red Blood Cells % 0 %; Platelet Count 143 10^3/cmm (130-400); Red Blood Count 5.09 10^6/uL (4.1-5.3); Red Cell Distribution Width 11.9 % (12.1-15.1); White Blood Count 7.1 10^3/uL (4.0-10.0)
[2021-06-18 09:10] LABS: INR 0.93 (0.8-1.2); Partial Thromboplastin Time 24.7 SECONDS (23.9-36.7)
[2021-06-18 09:13] LABS: D Dimer 0.45 ug/mIFEU (0-0.59)
[2021-06-18 09:16] LABS: Troponin(5th) Baseline 7 ng/L (0-15)
--- NOTE | 2021-06-18 09:17 | PC.NURSE ---
pt states i dont believe in all this conspiracy theory bullshit, I am not getting tested for COVID so the government can watch me!
[2021-06-18 09:23] LABS: Alanine Aminotransferase 28 U/L (0-41); Albumin Level 4.3 g/dL (3.5-5.2); Alkaline Phosphatase 70 IU/L (40-130); Aspartate Amino Transferase 19 U/L (0-40); Blood Urea Nitrogen 12 mg/dL (6-20); Carbon Dioxide 22 mmol/L (22-29); Chloride 101 mmol/L (98-107); Globulin 2.1 g/dL (1.3-4.6); Glomerular Filtration Rate 118.9 mL/min (90-130); Glucose 340 mg/dL (65-115); Lipase 40 U/L (13-60); NT Pro B Type Natriuretic Pept 59 pg/mL (0-125); Osmolality Calculated 293 mOsm/kg (285-295); Sodium 135 mmol/L (136-145); Total Bilirubin 0.5 mg/dL (0.15-1.2); Total Protein 6.4 g/dL (6.6-8.7)
[2021-06-18 09:36] LABS: Anion Gap 16.5 (5-19); Potassium 4.5 mmol/L (3.5-5.1)
--- NOTE | 2021-06-18 10:41 | ECG_ITS ---
[facility] Test Date: 2021-06-18 Pat Name: Stanley Betts Department: Room: Gender: Male Beater Out Leveling Machine: : 1970 Requested By: Sissy Gill Order Number: [id number] Sugar MD: Carmina Wallace M.D. Measurements Intervals [place] Rate: 65 P: 48 OR: 132 QRS: 14 QRSD: 110 T: -22 QT: 423 QTc: 442 Interpretive Statements SINUS RHYTHM WITH OCCASIONAL VENTRICULAR PREMATURE COMPLEXES WITH OCCASIONAL SUPRAVENTRICULAR PREMATURE COMPLEXES INFERIOR MYOCARDIAL INFARCTION , OF INDETERMINATE AGE [40+ ms Q WAVE AND/OR ST/T ABNORMALITY IN II/aVF] Compared to ECG 06/18/2021 08:50:30 Myocardial infarct finding now present Electronically Signed On 06-19-2021 22:03:06 TEACHING ASSOCIATE by Carmina Wallace M.D. [id number]
--- NOTE | 2021-06-18 15:06 | PC.NURSE ---
report given to YESIKA Ornelas on medsurg, pt to transport via wheel chair, all belongs with patient
--- NOTE | 2021-06-18 15:22 | PM.HP ---
Providers/Chief Complaint Admitting Physician: Salvatore Dubose Primary Care Provider: Alok Gonzales MD Chief Complaint: CHEST PAIN History of Present Illness Pleasant 51-year-old woman with history of CAD, 2 stents in RCA after STEMI in 2008 complicated by V. fib arrest, diabetes, 8 months ago COVID-19, subsequently associated with chronic fatigue, muscle mass loss, weight gain, obesity, presented to ER due to left-sided chest pain radiating to the posterior axilla, back, which woke him up early this morning, he takes nitroglycerin at home but states the tablets were old, did get relief with nitroglycerin which he received in EMS. Reports pain was similar to episode when he was having his VT previously. Does have some pain on palpation of the left side of the chest as well which she initially thought perhaps was the cause of his discomfort. Denies dyspnea or cough. No hemoptysis. No lower extremity swelling. No orthopnea. Pain is currently relieved apart from minimal residual discomfort on the left. Review of Systems Const: Denies: fever(s), chills, body aches or malaise Eyes: Denies: change in vision or eye redness ENMT: Denies: throat pain, oral sores or ear or mastoid pain Card: Denies: chest pain, edema, pre-syncope or dyspnea on exertion Resp: Denies: dyspnea, productive cough, change in phlegm color or hemoptysis GI: Denies: abdominal pain, nausea, vomiting, diarrhea, constipation, hematochezia or melena : Denies: flank pain, difficulty urinating, urinary frequency or hematuria Musc: Denies: back pain, joint swelling or joint redness Skin/Breast: Denies: rash, sores or new lesions Neuro: Denies: headache(s), numbness in extremities, weakness in extremities, dizziness, confusion or seizure-like activity Endo: Denies: polyuria or polydipsia Tadeo/Lymph: Denies: easy bleeding or purpura All/Imm: Denies: urticaria, throat swelling or tongue swelling Medications/Allergies Home Medications Medication Instructions Recorded Confirmed Last Taken Type ascorbic acid (vitamin C) [Vitamin 500 mg PO BID 06/23/19 06/18/21 06/17/21 History C] omega 2-leq-qpw-fish oil [Fish Oil] 1 cap PO BID 06/23/19 06/18/21 12/12/19 History Plavix 75 mg PO QAM 06/18/21 06/18/21 06/17/21 History aspirin 325 mg PO QAM 06/18/21 06/18/21 06/18/21 History 324 mg atorvastatin 40 mg PO QAM 06/18/21 06/18/21 06/17/21 History cholecalciferol (vitamin D3) 50 mcg PO BID 06/18/21 06/18/21 Unknown History [Vitamin D3] cyanocobalamin (vitamin B-12) 1,000 mcg PO BID 06/18/21 06/18/21 06/17/21 History [Vitamin B-12] metformin 500 mg PO BID 06/18/21 06/18/21 06/17/21 History metoprolol tartrate 12.5 mg PO BID 06/18/21 06/18/21 06/17/21 History aeznaovv-vvo-GM-lycopen-lutein 1 tab PO BID 06/18/21 06/18/21 06/17/21 History [Centrum Silver Men] testosterone cypionate 100 mg IM .ON THE & 06/18/21 06/18/21 Unknown History vit S-tjivygz-rdyx-rutin-hb196 1 tab PO BID 06/18/21 06/18/21 06/17/21 History [Bioflex] Allergies Allergy/AdvReac Type Severity Reaction Status Date / Time No Known Allergies Allergy Verified 06/18/21 11:23 PFSH Acute PFSH: Medical History CAD (coronary artery disease) Cardiac arrest Chest pain Shortness of breath Ventricular fibrillation Surgical History (Updated 06/18/21 @ 15:24 by Salvatore Dubose MD) H/O knee surgery History of coronary artery stent placement History of nasal surgery Family History Mother Diabetes Cancer Ovarian Father CAD (coronary artery disease), Onset Age: 70 Social History Smoking and tobacco status: never smoked Second hand smoke exposure: No Alcohol intake: current Alcohol intake frequency: holidays/special occasions only Substance/Drug Use: current Substance/Drug use type: Marijuana Lives independently: Yes Household members: spouse Marital status: Current occupational status: employed Current gender identity: Male Special hayden needs: No Vitals/I&O/Wt Last Vital Signs Temp 98.0 F 06/18/21 08:40 Pulse 71 06/18/21 14:45 Resp 21 H 06/18/21 14:45 BP 106/76 06/18/21 14:30 Pulse Ox 95 06/18/21 14:45 Weight last 48 hrs Weight 154.221 kg Physical Exam Const: COMMON NORMALS: no acute distress and patient oriented x3 HENMT: COMMON NORMALS: oropharynx normal Neck/C-Spine: COMMON NORMALS: no JVD Resp: COMMON NORMALS: normal respiratory effort and clear to auscultation bilaterally AUSCULTATION: clear to auscultation bilaterally Cardio: COMMON NORMALS: no JVD, regular rhythm, S1 normal heart sound present, S2 normal heart sound present and No murmurs present (Cardio) RHYTHM: regular rhythm HEART SOUNDS: S1 normal heart sound present and S2 normal heart sound present GI: COMMON NORMALS: Normal to inspection, nondistended, normoactive bowel sounds present, Soft to palpation and non-tender PALPATION: Yes Soft to palpation Extremity: COMMON NORMALS: no joint enlargement and no pedal edema Neuro: COMMON NORMALS: patient oriented x3 and moves all extremities Skin: COMMON NORMALS: no rashes or lesions noted GENERAL SKIN EXAM: no rashes or lesions noted and other (Extensive/elaborate tattoos) Data : 06/18/21 08:15 06/18/21 08:15 A&P Assessment and plan (1) Chest pain: Left-sided chest pain, radiating to posterior axilla, reports dean to his prior VT. With prior total occlusion of RCA, with STEMI complicated by V. fib arrest, with 3 stents placed in 2008. Continue ASA, Plavix, beta-mario alberto, statin. Troponin series 010 suggestive of acute VT. EKG without VT. Occasional VPCs Nitroglycerin as needed. Pharmacy monitoring. Assess TTE. Discussed with him consideration of stress testing tomorrow. He has had knee surgery in the past, having difficulty with intensive ambulation, will request chemical stress test. Status: Acute Attestations Medical Necessity Statement*: Place in observation for additional assessment of acute chest pain gentleman with underlying coronary disease, previous stenting and V. fib arrest after STEMI Coding Level of Care Code Acute Tool Design Drafter for Dariana Still Diagnoses Chest pain R07.9
[2021-06-18 15:36] LABS: Troponin 5 6HR 7.34 ng/L (0-15); Troponin 5 6HR Delta 0.34 ng/L (0-12)
--- NOTE | 2021-06-18 15:39 | USCV_ITS ---
Stanley Betts Age: 51 Gender: M : 1970 Exam Date: 06/18/2021 16:01 Ordering Phys: Salvatore Dubose MD Technologist: NAIN Exam Location: [facility] [place] Indication: ongoing intermittent chest pain x 8 yrs s/p [place] 2012. Hx cardiac stenting. BP: / HR: 57 Rhythm: Other -- intermittent atrial flutter Technical Quality: Suboptimal -- patiet does not want Optison MEASUREMENTS (Male / Female) Normal Values 2D ECHO LV Diastolic Diameter PLAX 5.2 cm 4.2 - 5.9 / 3.9 - 5.3 cm LV Systolic Diameter PLAX 4.7 cm IVS Diastolic Thickness 1.3 cm 0.6 - 1.0 / 0.6 - 0.9 cm IVS Systolic Thickness 1.7 cm LVPW Diastolic Thickness 1.3 cm 0.6 - 1.0 / 0.6 - 0.9 cm LVPW Systolic Thickness 1.5 cm LVOT Diameter 2.3 cm LV Ejection Fraction 2D Teich 21.7 % LV Ejection Fraction MOD 2C 42.8 % LV Ejection Fraction 2C AL 44.8 % LA Diameter 4.5 cm LA Width 4.4 cm LA Height 5.5 cm RA Width 3.4 cm RA Height 5.2 cm Aorta at Sinotubular Diameter 4.1 cm M-MODE Aortic Annulus Diameter 4.0 cm LA Ao Ratio MM 1.1 MV E Point Septal Separation 0.9 cm DOPPLER AV Peak Velocity 108.0 cm/s LVOT Peak Velocity 119.0 cm/s AV Area Cont Eq vti 4.6 cm squared AV Area Cont Eq pk 4.7 cm squared MV Peak Velocity 93.0 cm/s MV Area PHT 3.2 cm squared Mitral E to A Ratio 1.2 MV E' Velocity 35.0 cm/s Mitral E to MV E' Ratio 9.2 Mitral E to LV E' Lateral Ratio 8.5 Mitral E to LV E' Septal Ratio 10.3 TR Peak Velocity 213.7 cm/s TR Peak Gradient 18.3 mmHg TV Peak E Velocity 66.0 cm/s Right Atrial Pressure 5.0 mmHg Pulmonary Artery Systolic Pressu 23.3 mmHg PV Peak Velocity 95.0 cm/s RV Acceleration Time 0.1 s RV Ejection Time 0.4 s RV AcT/ET 0.2 FINDINGS Left Ventricle Mild diffuse hypokinesia of left ventricle. Ejection fraction around 45%. Right Ventricle Possibly normal RV size ejection fraction Right Atrium Possibly of normal size Left Atrium Mildly increased left atrial size. Mitral Valve Thickened mitral valve. Aortic Valve Thickened aortic valve. Tricuspid Valve Trace tricuspid valve regurgitation. Pulmonic Valve Trace pulmonary valve regurgitation. Pericardium No pericardial effusion. Possible moderate pleural effusion on the left side Aorta Plaque seen in the ascending aorta. CONCLUSIONS Mild diffuse hypokinesia of left ventricle. Ejection fraction around 45%. Mildly increased left atrial size. Thickened aortic and mitral valves. Trace of tricuspid and pulmonic regurgitation. Plaque seen in the ascending aorta. Echo-free space in the posterolateral aspect of the left ventricle, suggesting left-sided pleural effusion. Technically difficult study because of poor ultrasonic window. Patient refused Optison injection Dr Larissa Funez MD FAC (Electronically Signed) Final Date: 18 June 2021 23:49 S
[2021-06-18] MEDS: metoprolol tartrate 25 mg Tablet 12.5 MG PO (17:10)
[2021-06-18] MEDS: enoxaparin 40 mg/0.4 mL Syringe SUBCUT (17:10)
[2021-06-19] VITALS (9 sets, daily range): BP systolic 112–134; BP diastolic 72–96; PULSE 51–79; RESP 17–19; TEMP 36.1–36.7; O2SAT 94–98
--- NOTE | 2021-06-19 00:38 | PC.NURSE ---
Patient is complaining of chest pressure in his left armpit and his left side. He said it is nowhere near as bad as when he came in but wanted to let nursing staff know. His vitals are 117/96, HR 51-64, 96% on room air. He refused nitro and oxygen. His telemetry is unchanged from beginning of shift. Dr Canseco informed via voalte.
[2021-06-19] MEDS: clopidogrel 75 mg Tablet PO (04:59)
[2021-06-19] MEDS: atorvastatin 40 mg Tablet PO (04:59)
[2021-06-19] MEDS: aspirin 325 mg Tablet PO (04:59)
[2021-06-19 06:52] LABS: Blood Urea Nitrogen 13 mg/dL (6-20); Calcium 9.1 mg/dL (8.5-10.5); Carbon Dioxide 21 mmol/L (22-29); Chloride 101 mmol/L (98-107); Glucose 224 mg/dL (65-115); Osmolality Calculated 287 mOsm/kg (285-295); Sodium 135 mmol/L (136-145)
[2021-06-19 07:08] LABS: Basophils # 0.1 10^3/uL (0.0-0.1); Basophils % 0.8 %; Eosinophils # 0.2 10^3/uL (0.0-0.8); Eosinophils % 2.9 %; Hematocrit 48.5 % (42.0-52.0); Hemoglobin 16.6 g/dL (11.7-16.6); Lymphocytes % 44.6 %; Mean Corpuscular HGB Conc 34.2 g/dL (30.0-36.0); Mean Corpuscular Volume 96.4 fl (80-94); Mean Platelet Volume 10.6 fL (7.4-10.4); Monocytes # 0.5 10^3/uL (0.2-0.9); Monocytes % 7.7 %; Neutrophils % 43.8 %; Nucleated Red Blood Cells % 0 %; Platelet Count 112 10^3/cmm (130-400); Red Blood Count 5.03 10^6/uL (4.1-5.3); Red Cell Distribution Width 12.4 % (12.1-15.1); White Blood Count 6.6 10^3/uL (4.0-10.0)
--- NOTE | 2021-06-19 08:00 | ECG_ITS ---
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 The perfusion scan will be documented separately. DATA: Baseline heart rate was 89 beats per minute. Baseline blood pressure was 109/81 millimeters of mercury. Target heart rate was 169. Maximum heart rate achieved was 102. which was 60% of the predicted target heart rate. Maximum blood pressure was 150/99 millimeters of mercury. The reason for ending the test was completion of the protocol. The patient did not experience any symptoms. ELECTROCARDIOGRAM: BASELINE: Sinus rhythm. Normal axis. Possible old inferior wall myocardial infarction, otherwise no ST-T changes suggestive of ischemia noted. No arrhythmia noted. EXERCISE: After Lexiscan injection, no ST-T changes suggestive of ischemic noted. No arrhythmia noted. CONCLUSION: Please note due to baseline abnormality of the EKG specificity and sensitivity of the EKG portion of LexiScan MIBI stress test will be low 1. EKG not suggestive of ischemia 2. Lexiscan injection unremarkable. 3. Perfusion scan will be documented separately. Electronically Signed On 06-22-2021 15:01:54 DIRECTOR OUTCOMES by VAMSI PRINGLE [email or web address]
[2021-06-19] MEDS: regadenoson 0.4 Mg/5 ml Syringe IVP (08:25)
[2021-06-19 13:25] LABS: Glucose Point of Care 271 mg/dL (70-110)
--- NOTE | 2021-06-19 15:40 | NMCV_ITS ---
[facility] perf SPECT r/s* [id number] Stanley Betts Age: 51 Gender: M : 1970 Exam Date: 06/19/2021 06:57 Ordering Phys: Salvatore Dubose MD Technologist: ALE Redmond Exam Location: [facility] Indications: CHEST PAIN STRESS TEST Please see separate stress test report in [facility] for full findings IMAGE PROTOCOL Rest/Stress 1 Lexiscan Day Radiopharmaceutical Dose (mCi) Administration Site Administered by Rest: Tc-99m 11.0 IV ALE Fonseca Sestamibi Stress:Tc-99m 33.0 IV ALE Fonseca Sestamibi Rest: 19-Jun-2021 60 Discovery 630 Stress: 19-Jun-2021 30 Discovery 630 0.4mg Lexiscan. Images obtained in supine and prone position. SPECT RESULTS Technical Quality: Excellent Raw Data Analysis: Normal Image Corrections: No attenuation or motion correction applied Summed Stress Score: 9 Summed Rest Score: 12 Summed Difference Score: 2 PERFUSION FINDINGS Large area of fixed perfusion defect noted in basal to distal inferior and inferolateral wall suggestive of old myocardial infarction versus scarring FUNCTIONAL RESULTS (calculated via Gated SPECT) Stress Image LV EF (%): 44 Stress EDV (mL):199 TID: 1.03 Stress ESV (mL):111 FUNCTIONAL FINDINGS: Inferior inferolateral wall severe hypokinesis IMPRESSIONS Large area of old myocardial infarction versus scarring noted in basal to distal inferior and inferolateral wall without ischemia. The study is negative for ischemia. EKG segment will be documented separately. Nate Parks MD (Electronically Signed) Final Date: 19 June 2021 14:31 S
[2021-06-19 17:09] LABS: Glucose Point of Care 357 mg/dL (70-110)
[2021-06-19] MEDS: insulin lispro 100 unit/1 mL SUBCUT (17:36)
--- NOTE | 2021-06-19 18:12 | P.CONIM_ITS ---
Providers/Reason For Consult Consulting Physician/Specialty*: MIKI Funez MD/cardiology Reason for Consult*: Chest pain /ASHD Attending Physician: Salvatore Dubose Primary Care Provider: Alok Gonzales MD History of Present Illness History of Present Illness Stanley Betts is a 51 year old male with a history of previous coronary artery disease, myocardial infarction complicated with ventricular fibrillation he is admitted to hospital through the emergency room where he presented with complaints of prolonged episode of chest pain. He continues to have left-sided chest pain. He had a myocardial perfusion imaging today which revealed no significant reversible defects. Cardiology consult is requested for further cardiac evaluation recommendations. Mr. Diana Was admitted to hospital in December 2012 with features of an acute inferior wall myocardial infarction. In the emergency room, he went into V. fib arrest. He was defibrillated and was taken to the cardiac [facility]. In the cardiac the left the [facility] [employer] he again went into V. fib arrest. He was defibrillated 4 times in the [facility] Wel[facility]. He was found to have thrombotic occlusion of the right coronary artery. Primary PCI of the right coronary artery was performed by Dr. Parks. He had unremarkable recovery afterwards and was discharged home in stable condition. According the patient, ever since this episode, he has been having some episodes of left-sided chest pain. The pain is mainly in the left infra axillary region, radiated to the left shoulder, between the shoulder blades to the back and also into the left upper arm. He is these episodes are infrequent in the beginning. According the patient, he has been having increasing episodes of these pains. No definite precipitating factors. Intensity has been varying. On the day of admission, he woke up around 3:00 and was complaining of pain. The intensity was severe from 3-9 over 10. He took a couple of sublingual nitro but did not experience any improvement. Subsequently he called the ambulance almost after 4 hours of waiting. According to the patient, the nitroglycerin that he took was very old. He was given 1 sublingual nitro by EMS which immediately took away the pain. He had some associated cold sweats and nausea and shortness of breath. The pain was waxing and waning. In the ambulance, he was given another sublingual nitro for recurrence of pain. He had a third nitro as he was transferred to the ER from the ambulance. Even though he had recurrent episodes of these chest pains in the past, he never had pain lasting that long and also that severe. He has no other associated symptoms or radiation of pain. He continues to have mild degree of these pains in the hospital. He underwent a myocardial perfusion imaging today and was found to have areas of fixed defects with no significant reversible defects. Patient is very concerned that his symptoms are similar to what he had prior to his previous myocardial infarction. He denies any fever or chills. No cough. No orthopnea PND. No other specific complaints. He had an echocardiogram done which revealed normal LV size with diminished ejection fraction of around 45%. The study was a suboptimal quality. Review of Systems Narrative: CONSTITUTIONAL: No fever or chills. EYES: No blurring of vision or other visual disturbances lately. ENT: No hoarseness of voice, auditory disturbances or sore throat. CARDIOVASCULAR: As mentioned above. RESPIRATORY: No significant cough. GASTROINTESTINAL: No hematemesis or melena. GENITOURINARY: No dysuria or hematuria. INTEGUMENTARY: No skin rashes or history of skin cancer. NEURO: No transient ischemic attacks or amaurosis. PSYCHIATRIC: No history of psychosis or major depression. HEMATOLOGIC: No bleeding disorders or significant anemia. ENDOCRINE: No history of polyuria or polydipsia. MUSCULOSKELETAL: No recent joint pain or swelling. ALLERGY/IMMUNOLOGY: As mentioned above. Meds/Allergies Home Medications and Allergies Home Medications Medication Instructions Recorded Confirmed Last Taken Type ascorbic acid (vitamin C) [Vitamin 500 mg PO BID 06/23/19 06/18/21 06/17/21 History C] omega 5-rsd-nvu-fish oil [Fish Oil] 1 cap PO BID 06/23/19 06/18/21 12/12/19 History Plavix 75 mg PO QAM 06/18/21 06/18/21 06/17/21 History aspirin 325 mg PO QAM 06/18/21 06/18/21 06/18/21 History 324 mg atorvastatin 40 mg PO QAM 06/18/21 06/18/21 06/17/21 History cholecalciferol (vitamin D3) 50 mcg PO BID 06/18/21 06/18/21 Unknown History [Vitamin D3] cyanocobalamin (vitamin B-12) 1,000 mcg PO BID 06/18/21 06/18/21 06/17/21 History [Vitamin B-12] metformin 500 mg PO BID 06/18/21 06/18/21 06/17/21 History metoprolol tartrate 12.5 mg PO BID 06/18/21 06/18/21 06/17/21 History bzltrins-juh-BG-lycopen-lutein 1 tab PO BID 06/18/21 06/18/21 06/17/21 History [Centrum Silver Men] testosterone cypionate 100 mg IM .ON THE & 06/18/21 06/18/21 Unknown History vit I-tnhedeq-tlqp-rutin-hb196 1 tab PO BID 06/18/21 06/18/21 06/17/21 History [Bioflex] Allergies Allergy/AdvReac Type Severity Reaction Status Date / Time No Known Allergies Allergy Verified 06/18/21 11:23 Current Medications Current Medications Generic Name Dose Route Start Last Admin Trade Name Freq PRN Reason Stop Dose Admin Aspirin 325 mg 06/19/21 06:00 06/19/21 04:59 Aspirin 325 Mg Tablet PO 325 mg QAM [facility] Administration Atorvastatin Calcium 40 mg 06/19/21 06:00 06/19/21 04:59 Atorvastatin 40 Mg Tablet PO 40 mg QAM JIMBO Administration Clopidogrel Bisulfate 75 mg 06/19/21 06:00 06/19/21 04:59 Clopidogrel 75 Mg Tablet PO 75 mg QAM [facility] Administration Enoxaparin Sodium 40 mg 06/18/21 15:45 06/19/21 17:03 Enoxaparin 40 Mg/0.4 Ml Syringe SUBCUT Not Given Q24H [facility] Insulin Human Lispro 0 unit 06/19/21 18:00 06/19/21 17:36 Insulin Lispro 100 Unit/1 Ml SUBCUT 12 unit WM&BEDTIME JIMBO Administration Protocol Metoprolol Tartrate 12.5 mg 06/18/21 18:00 06/19/21 17:36 Metoprolol Tartrate 25 Mg Tablet PO Not Given BID [facility] PFSH Acute PFSH: Medical History CAD (coronary artery disease) Cardiac arrest Chest pain Shortness of breath Ventricular fibrillation Surgical History H/O knee surgery History of coronary artery stent placement History of nasal surgery Family History Mother Diabetes Cancer Ovarian Father CAD (coronary artery disease), Onset Age: 70 Social History Smoking and tobacco status: never smoked Second hand smoke exposure: No Alcohol intake: current Alcohol intake frequency: holidays/special occasions only Substance/Drug Use: current Substance/Drug use type: Marijuana Lives independently: Yes Household members: spouse Marital status: Current occupational status: employed Current gender identity: Male Special hayden needs: No Vitals/I&O/Wt Last Vital Signs Temp 98.0 F 06/19/21 15:49 Pulse 71 06/19/21 16:32 Resp 17 06/19/21 15:49 BP 120/83 06/19/21 15:49 Pulse Ox 94 06/19/21 16:32 06/19/21 06/19/21 06/19/21 06:59 14:59 22:59 Intake Total 480 / 960 240 / 240 Balance 480 / 960 240 / 240 Weight last 48 hrs Weight 339 lb 12.8 oz Weight 340 lb Weight 340 lb Physical Exam Narrative: EXAM NARRATIVE: GENERAL: The patient is alert and oriented times three. Not in any acute distress. HEENT: No significant pallor, icterus or lymphadenopathy. The pupils are symmetrical. Oral cavity: There are no mucous membrane lesions. Funduscopic examination: The disk margins appear to be sharp with no exudates or hemorrhages. NECK: Trachea appears to be central. No masses noted. No JVD or thyromegaly appreciated. No carotid bruit. RESPIRATORY: Chest is symmetrical. No intercostals muscle retraction or any accessory muscle activation. There is no chest wall tenderness. Breath sounds are heard bilaterally. No rales or rhonchi heard. No evidence of any consolidation. BREASTS: Deferred. HEART: The PMI could not be palpated. No palpable precordial events. S1 and S2 are normal. No S3 or S4 heard. No pericardial rub or any click heard. ABDOMEN: No vessel pulsations or distention. No tenderness. No organomegaly appreciated. No abdominal bruit. Bowel sounds are normally heard. : Deferred. RECTAL: Deferred. LYMPHATIC: No lymphadenopathy noted in the neck or groin. EXTREMITIES: No edema or cyanosis. No clubbing. The pulses are symmetrical bila terally. There is good volume and amplitude. MUSCULOSKELETAL: No acute joint deformities or swelling SKIN: Extensive tattoo markings all over the body. 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 NEUROPSYCHIATRIC: The patient is alert and oriented x3. Appears to be in a good mood. The higher functions are grossly within normal limits. No tremors or rigidity noted. Data Labs: Other Labs: Laboratory Last Values WBC 6.6 10^3/uL (4.0- 10.0) 06/19/21 04:50 RBC 5.03 10^6/uL (4.1 -5.3) 06/19/21 04:50 Hgb 16.6 g/dL (11.7-1 6.6) 06/19/21 04:50 Hct 48.5 % (42.0-52.0 ) 06/19/21 04:50 MCV 96.4 fl (80-94) H D 06/19/21 04:50 MCH 33.0 pg (28.0-34. 0) 06/19/21 04:50 MCHC 34.2 g/dL (30.0-3 6.0) D 06/19/21 04:50 RDW 12.4 % (12.1-15.1 ) 06/19/21 04:50 Plt Count 112 10^3/cmm (130 -400) L 06/19/21 04:50 MPV 10.6 fL (7.4-10.4 ) H 06/19/21 04:50 Neut % (Auto) 43.8 % 06/19/21 04:50 Lymph % (Auto) 44.6 % 06/19/21 04:50 Coffee % (Auto) 7.7 % 06/19/21 04:50 Eos % (Auto) 2.9 % 06/19/21 04:50 Baso % (Auto) 0.8 % 06/19/21 04:50 Neut # (Auto) 2.90 10^3/uL (1.8 -7.7) 06/19/21 04:50 Lymph # (Auto) 3.0 10^3/uL (0.8- 4.8) 06/19/21 04:50 Coffee # (Auto) 0.5 10^3/uL (0.2- 0.9) 06/19/21 04:50 Eos # (Auto) 0.2 10^3/uL (0.0- 0.8) 06/19/21 04:50 Baso # (Auto) 0.1 10^3/uL (0.0- 0.1) 06/19/21 04:50 Nucleated RBC % (a uto) 0 % 06/19/21 04:50 Nucleated RBCs # 0.0 /100WBC 06/19/21 04:50 PT 12.80 SECONDS (12 .1-14.9) 06/18/21 08:15 INR 0.93 (0.8-1.2) 06/18/21 08:15 APTT 24.7 SECONDS (23. 9-36.7) 06/18/21 08:15 D-Dimer 0.45 ug/mIFEU (0- 0.59) 06/18/21 08:15 Sodium 135 mmol/L (136-1 45) L 06/19/21 04:50 Potassium 4.0 mmol/L (3.5-5 .1) 06/19/21 04:50 Chloride 101 mmol/L (98-10 7) 06/19/21 04:50 Carbon Dioxide 21 mmol/L (22-29) L 06/19/21 04:50 Anion Gap 17.0 (5-19) 06/19/21 04:50 BUN 13 mg/dL (6-20) 06/19/21 04:50 Creatinine 0.6 mg/dL (0.7-1. 2) L 06/19/21 04:50 GFR Calculation 142.0 mL/min (90- 130) H 06/19/21 04:50 Glucose 224 mg/dL (65-115 ) H 06/19/21 04:50 POC Glucose 357 mg/dL (70-110 ) H 06/19/21 17:01 Calculated Osmolal ity 287 mOsm/kg (285- 295) 06/19/21 04:50 Calcium 9.1 mg/dL (8.5-10 .5) 06/19/21 04:50 Total Bilirubin 0.5 mg/dL (0.15-1 .2) 06/18/21 08:15 AST 19 U/L (0-40) 06/18/21 08:15 ALT 28 U/L (0-41) 06/18/21 08:15 Alkaline Phosphata se 70 IU/L (40-130) 06/18/21 08:15 Troponin T Baselin e 7 ng/L (0-15) 06/18/21 08:15 Troponin T 120 Min ceferino 6.00 ng/L (0-15) 06/18/21 10:30 Delta Troponin T -1.00 ABS# (0-10) L 06/18/21 10:30 Troponin T Hi Sens 6Hr 7.34 ng/L (0-15) 06/18/21 14:44 Troponin T Hi Sens 6Hr Delta 0.34 ng/L (0-12) 06/18/21 14:44 NT-Pro-B Natriuret Pep 59 pg/mL (0-125) 06/18/21 08:15 Total Protein 6.4 g/dL (6.6-8.7 ) L 06/18/21 08:15 Albumin 4.3 g/dL (3.5-5.2 ) 06/18/21 08:15 Globulin 2.1 g/dL (1.3-4.6 ) 06/18/21 08:15 Lipase 40 U/L (13-60) 06/18/21 08:15 Imaging^: Echo: My impression: Echocardiogram on 06/19/2021 Mild diffuse hypokinesia of left ventricle. Ejection fraction around 45%. Mildly increased left atrial size. Thickened aortic and mitral valves. Trace of tricuspid and pulmonic regurgitation. Plaque seen in the ascending aorta. Echo-free space in the posterolateral aspect of the left ventricle, suggesting left-sided pleural effusion. Technically difficult study because of poor ultrasonic window. Patient refused Optison injection Myocardial perfusion imaging: My impression: Large area of old myocardial infarction versus scarring noted in basal to distal inferior and inferolateral wall without ischemia. The study is negative for ischemia. EKG segment will be documented separately. Myocardial perfusion meeting on 03/17/2016 1. Myocardial perfusion imaging revealing a small to moderate area of persistent decreased tracer uptake in the basal and apical inferior wall region, suggestive of myocardial scarring in the distribution of the right coronary artery. 2. A small area of decreased tracer uptake in the mid and apical anteroseptal region suggestive of myocardial scarring in the distribution of the left anterior descending artery. 3. Diminished left ventricular ejection fraction of 40%. 4. Multiple wall motion abnormalities as mentioned above. 5. Mildly dilated left ventricular cavity. 6. No significant coronary ischemia, based on the above findings. EKG^: EKG 1: My Interpretation: The EKG revealed sinus rhythm with occasional PVCs. Features of old inferior myocardial infarction. Some nonspecific T wave changes. A&P Assessment and plan (1) Chest pain: Patient's chest pain may suggest an unstable angina. However he has a lot of atypical features. In view of his history of coronary artery disease with worsening chest pains and LV dysfunction by echocardiogram, in order to further evaluate his coronary status, a cardiac catheterization would be appropriate. Status: Acute Qualifiers: Chest pain type: other chest pain Qualified Code(s): R07.89 - Other chest pain (2) History of ventricular fibrillation: Patient has not had any recurrence of ventricular arrhythmia since the myocardial infarction in 2013 Status: Acute (3) Atherosclerotic heart disease of [place] coronary artery with other forms of angina pectoris: Patient had a PCI of the RCA in 2013. Esophageal restenosis versus progression of disease in the other vessels are considerations. Status: Acute (4) LV dysfunction: Most likely related to underlying coronary artery disease or previous myocardial infarction. Status: Acute (5) Morbid obesity: Patient seems understand the importance of lifestyle modification Status: Acute (6) Dyslipidemia: Patient is on Lipitor, this may be continued Status: Acute Additional A&P Information His other problems are as outlined before. Because of the patient's ongoing worsening of the symptoms, in order to further evaluate the coronary status, a repeat cardiac catheterization would be appropriate. I will be discussing this with (patient's renewable energy technician) in the morning. Patient may be kept n.p.o. after midnight. Dr. Parks, n after talking to the patient, will make the final decision about the angiogram. In the meanwhile, he may continue on the current medications. Thank you for the opportunity to eval this patient make these recommendations Coding Level of Care Code Acute Ore Fielder for Dariana Still Medical Decision Making High Complexity Diagnoses Chest pain R07.89 Chest pain type: other chest pain History of ventricular fibrillation Z86.79 Atherosclerotic heart disease of [place] coronary artery with other forms of angina pectoris I25.118 LV dysfunction I51.9 Morbid obesity E66.01 Dyslipidemia E78.5
--- NOTE | 2021-06-19 19:10 | PM.PN ---
Subjective Subjective: Interval history: Persistent left-sided chest pain, she is concerned because it is radiating to the left side neck, down the left arm, similar to the symptoms during prior AL. Discussed with him. Also echocardiogram, stress test. New decrease in ejection fraction. Noted prior AL or scarring on stress testing which did not visualize active ischemia. Given ongoing pain we are requesting cardiology consultation. Vitals/I&O/Wt Last Vital Signs Temp 98.0 F 06/19/21 15:49 Pulse 71 06/19/21 16:32 Resp 17 06/19/21 15:49 BP 120/83 06/19/21 15:49 Pulse Ox 94 06/19/21 16:32 06/19/21 06/19/21 06/19/21 06:59 14:59 22:59 Intake Total 480 / 960 240 / 240 240 / 480 Balance 480 / 960 240 / 240 240 / 480 Weight last 48 hrs Weight 154.131 kg Weight 154.221 kg Weight 154.221 kg Physical Exam Const: COMMON NORMALS: no acute distress and patient oriented x3 NUTRITIONAL APPEARANCE: obese HENMT: COMMON NORMALS: oropharynx normal Neck/C-Spine: COMMON NORMALS: no JVD Resp: COMMON NORMALS: normal respiratory effort and clear to auscultation bilaterally AUSCULTATION: clear to auscultation bilaterally Cardio: COMMON NORMALS: no JVD, regular rhythm, S1 normal heart sound present, S2 normal heart sound present and No murmurs present (Cardio) RHYTHM: regular rhythm HEART SOUNDS: S1 normal heart sound present and S2 normal heart sound present GI: COMMON NORMALS: Normal to inspection, nondistended, normoactive bowel sounds present, Soft to palpation and non-tender PALPATION: Yes Soft to palpation Extremity: COMMON NORMALS: no joint enlargement and no pedal edema Neuro: COMMON NORMALS: patient oriented x3 and moves all extremities Skin: COMMON NORMALS: no rashes or lesions noted GENERAL SKIN EXAM: no rashes or lesions noted and other (Extensive/elaborate tattoos) Data : 06/19/21 04:50 06/19/21 04:50 A&P Assessment and plan (1) Chest pain: Discussed results of TTE and significant decrease in ejection fraction to 45%. Subsequent discussed results of stress testing. Noted area of AL or scarring, no active ischemia visualized. Due to persistent left-sided chest pain radiating to the left neck, down left arm, and he states symptoms chest) prior AL, he is now additionally being seen by cardiology in consultation. At this time I am told that he is to stay in the hospital for further assessment, NPO for assessment by coronary angiography tomorrow. Left-sided chest pain, radiating to posterior axilla, reports dean to his prior AL. With prior total occlusion of RCA, with STEMI complicated by V. fib arrest, with 3 stents placed in 2008. Continue ASA, Plavix, beta-mario alberto, statin. Troponin series 010 suggestive of acute AL. EKG without AL. Occasional VPCs Nitroglycerin as needed. Telemetry monitoring. Status: Acute Attestations Medical Necessity Statement*: Continue hospitalization for assessment with coronary angiography of persistent chest pain in gentleman with underlying CAD, prior stenting, V. fib arrest after STEMI. Coding Level of Care Code Acute Solid Waste Management Engineer for Dariana Still Diagnoses Chest pain R07.9
[2021-06-19] MEDS: enoxaparin 40 mg/0.4 mL Syringe SUBCUT (19:22)
[2021-06-19 21:08] LABS: Glucose Point of Care 270 mg/dL (70-110)
[2021-06-19 23:37] LABS: Glucose Point of Care 247 mg/dL (70-110)
[2021-06-20] VITALS (27 sets, daily range): BP systolic 114–150; BP diastolic 78–111; PULSE 57–97; RESP 18; TEMP 36.4–37.1; O2SAT 94–99
[2021-06-20] MEDS: aspirin 325 mg Tablet PO (05:12)
[2021-06-20] MEDS: atorvastatin 40 mg Tablet PO (05:12)
[2021-06-20] MEDS: clopidogrel 75 mg Tablet PO (05:12)
[2021-06-20 07:04] LABS: Basophils # 0.1 10^3/uL (0.0-0.1); Basophils % 0.8 %; Eosinophils # 0.2 10^3/uL (0.0-0.8); Hematocrit 47.5 % (42.0-52.0); Hemoglobin 16.4 g/dL (11.7-16.6); Lymphocytes # 2.8 10^3/uL (0.8-4.8); Lymphocytes % 45.5 %; Mean Corpuscular HGB Conc 34.5 g/dL (30.0-36.0); Mean Corpuscular Volume 92.6 fl (80-94); Mean Platelet Volume 10.8 fL (7.4-10.4); Monocytes # 0.5 10^3/uL (0.2-0.9); Monocytes % 7.9 %; Neutrophils % 42.6 %; Nucleated Red Blood Cells % 0 %; Platelet Count 116 10^3/cmm (130-400); Red Blood Count 5.13 10^6/uL (4.1-5.3); White Blood Count 6.1 10^3/uL (4.0-10.0)
[2021-06-20 07:20] LABS: Blood Urea Nitrogen 13 mg/dL (6-20); Calcium 9.2 mg/dL (8.5-10.5); Carbon Dioxide 20 mmol/L (22-29); Chloride 102 mmol/L (98-107); Glucose 219 mg/dL (65-115); Osmolality Calculated 291 mOsm/kg (285-295); Sodium 137 mmol/L (136-145)
[2021-06-20 07:22] LABS: Anion Gap 19.3 (5-19); Potassium 4.3 mmol/L (3.5-5.1)
[2021-06-20 07:45] LABS: Glucose Point of Care 245 mg/dL (70-110)
--- NOTE | 2021-06-20 11:20 | XACV_ITS ---
Exam Room: [facility] Ht: 198 cm Wt: 154 kg BSA: 2.96 m2 Gender: Male : 1970 Any Known Allergies: No known allergies Exam Priority: Routine Procedure(s): Procedure Description: Diagnostic procedure Procedure Description: PCI procedure Procedure Description: Drug Eluting Coronary Stent Procedure Description: Miscellaneous Procedure Description: ACT Procedure Description: [facility]; Diagnostic Cath Status: Urgent Diagnostic Findings * Left Main has no disease. * Left Anterior Descending has no disease. * Circumflex has no disease. * Proximal Right Coronary Artery to Distal Right Coronary Artery: total occlusion, BOOKER: 0 flow. * Ramus: subtotal occlusion, BOOKER: 3 flow. * 1st Diagonal: luminal irregularities 20% stenosis, BOOKER: 3 flow. * 3rd Left Anterior Descending Septal Injection Press Operator Segment to 3rd Posterior Descending Septal Injection Press Operator collaterallization. * Third Obtuse Marginal Branch Segment to AV groove continuation of Circumflex Artery collaterallization. * Coronary angiography shows right dominance. PCI Status: Urgent PCI Indication: NSTE - ACS Interventional Findings * Ramus: 99% stenosis treated with a AB TREK 3.00X15 RX BALLOON, ISIDRA Aragon SHAKEEL 3.5X18 FIDE, ISIDRA Aragon SHAKEEL 3.5X12 IFDE, and ISIDRA JOHNSON EUPHORA RX [id number] BALLOON. 0% residual stenosis, BOOKER: 3 flow. Conclusions 1. There is total occlusion coronary artery disease with one vessel disease. 2. Ramus was treated with a Balloon, Drug Eluting Stent, Drug Eluting Stent, and Balloon. Recommendations * 1-Return to inpatient for close monitoring and routine cath care 2-Risk factor modification for secondary prevention 3-Statin and aspirin 81 mg life--long, if tolerated 4-Continue Plavix 75mg p.o. daily for at least one year. We will assess at the end of one year again to continue if further or not 5-Continue optimal medical management 6-Follow up with Dr. Parks in four weeks and your primary care in 10 days. Diagnostic RX Recommendation: PCI w/o planned CABG Pressures Phase:Rest AO : 108 / 85 ( 97 ) @ 10:31:00 AM 144 / 74 ( 90 ) @ 10:51:00 AM 111 / 74 ( 91 ) @ 10:52:00 AM 108 / 87 ( 95 ) @ 10:53:00 AM Clinical Evaluation EBL: 5mL-10mL Procedural Details Procedure Consent Obtained. Admit Source: In Patient. Pre-Procedure Time Out. Identified patient by full name and date of as verbalized by the patient/guarantor. Does the consent match the physician's order: Yes. Accurate & Complete Informed Consent: Yes. Inpatient/Outpatient History & Physical on Chart: Yes. If H&P is completed, is and addenduem neededN/A; If yes, is the addendum complete: Yes. The risks, benefits, and alternatives of sedation and/or procedure were discussed by physician. The patient agrees to continue. Procedure started. [facility] Clinical Fraility Score: 3: Managing Well. Certified Teacher Assistant Indications: New Onset Angina. Chest Pain Symptom Assessment: Atypical Angina. Correct patient, site and procedure confirmed by cath team. Current diagnosis: Chest Pain. PERRLA. Strong, equal hand auditor/quality bilaterally. Lungs clear x 5 lobes. IV Site on Arrival: 22 gauge in the left hand. IV Fluids: 0.9% NaCl at KVO. 0 mL infused prior to laborer carpentry dock. Pre Procedural Pulses: right radial was 1+. Oxygen started at 2liters/min via nasal canula. right groin was prepped with chloroprep then draped in the usual sterile fashion. right radial was prepped with chloroprep then draped in the usual sterile fashion. Baseline sample Acquired. HR: 0 BPM. Physician notified. Avel Gupta CREMATORY ATTENDANT/CCP switch technician for procedure. Radha Contreras RN, nurse collet making machine operator during procedure. Physician arrived. Physician scrubbed in. Lidocaine 1% infiltrated to the right radial. Arterial access obtained. A 5 djiboutian Miguel catheter in over wire. Multiple views taken of left coronary artery. A 5 djiboutian JR4 catheter in over wire. Catheter out. Multiple views taken of right coronary artery. Catheter out. Equipment: 6F - Radial. 6 djiboutian XB 4 guide catheter was inserted over the wire. Guide seated in the LCS. BMW guidewire was advanced through the guide catheter to lesion in the Ramus. Guidewire advanced across lesion. Inflation number : 1 A AB TREK 3.00X15 RX BALLOON was prepped and advanced across the Ramus , then inflated to 12 GEORGE for 0:21 seconds. Balloon out. Angiography performed. Inflation Number : 2 A MDT R SHAKEEL 3.5X18 FIDE -Lot Number# [id number] was prepped and advanced across the Ramus. The stent was deployed at 12 GEORGE for 0:32 seconds. EXP 04-10-24. Stent balloon out over wire. Angiography performed. Angiography performed. Angiography performed. Inflation Number : 3 A MDT R SHAKEEL 3.5X12 FIDE -Lot Number# [id number] was prepped and advanced across the Ramus. The stent was deployed at 12 GEORGE for 0:18 seconds. EXP 02-26-24. Stent balloon out over wire. Angiography performed. Inflation number : 4 A MDT NC EUPHORA RX [id number] BALLOON was prepped and advanced across the Ramus , then inflated to 10 GEORGE for 0:18 seconds. Inflation number: 5 The MDT NC EUPHORA RX [id number] BALLOON was reinflated across the Ramus, to 8 GEORGE for 0:08 seconds. Inflation number: 6 The MDT NC EUPHORA RX [id number] BALLOON was reinflated across the Ramus, to 8 GEORGE for 0:12 seconds. Balloon out. Angiography performed. Physician review of films. ACT drawn. Results 243 seconds. Therapeutic limits - pre-heparin administration 90-150 seconds and monitoring heparin during a vascular procedure >250 seconds. Guide catheter out. Physician scrubbed out. A TR Band was successful obtaining hemostatsis at the Right Radial artery insertion site. TR band placed. Hemostasis obtained. Post-op diagnosis: Multvessel CAD, Significant Ramus Artery disease post FIDE. Post Procedure: Pulses reassessed and unchanged. No VTE prophylaxis required. Medication's Wasted: Lidocaine 1% = 18 ml. Medication's Wasted: Nitro = 49.6 mg. Medication's Wasted: Fentanyl = 25 mcg. Total IV fluids: 88.2 mL. Fluoro: 11:07. Contrast type used: Omnipaque 300 mgI/mL, 500 mL bottle. [id number]. Complications: None. Estimated blood loss: 5mL-10mL. Responsiveness - Normal response to verbal stimuli; alert and oriented, PERRLA. Airway - Unaffected, no intervention required; spontaneous ventilation. Circulation: W/N/L, pulses unchanged. Nausea/Vomiting: No. Procedure completed. Patient transferred by wheelchair to 1st floor. Vital chart was stopped. Access Site Site: Right Radial artery Sheath Size: 6 Fr Hemostasis Method: TR Band Hemostasis Success: Successful Procedure Medications Start: 12:02 PM Stop: 12:02 PM Medication: Fentanyl Amount: 50 mcg Route: I.V. Start: 12:06 PM Stop: 12:06 PM Medication: Versed Amount: 1 mg Route: I.V. Start: 12:21 PM Stop: 12:21 PM Medication: Versed Amount: 1 mg Route: I.V. Start: 12:21 PM Stop: 12:21 PM Medication: Fentanyl Amount: 25 mcg Route: I.V. Start: 12:23 PM Stop: 12:23 PM Medication: Nitrogylcerin Amount: 200 mcg Route: I.A. Start: 12:24 PM Stop: 12:24 PM Medication: Heparin Amount: 5000 units Route: I.V. Start: 12:32 PM Stop: 12:32 PM Medication: Heparin Amount: 9000 units Route: I.V. Start: 12:51 PM Stop: 12:51 PM Medication: Nitrogylcerin Amount: 200 mcg Route: I.C. Start: 1:09 PM Stop: 1:09 PM Medication: Heparin Amount: 2000 units Route: I.V. I, the attending physician, have reviewed and verified all procedure medications. Yes, all medications given per verbal order History/Risk Factors Hypertension: No Dyslipidemia: No Peripheral Arterial Disease (PAD): No Myocardial Infarction ([place]): Yes Obesity: Yes Renal Disease: No Prior Interventions PCI: Yes CABG: No Valve Surgery: No Date of PCI: 12/12/2012 Report Signatures Finalized by Nate Parks MD on 07/03/2021 07:46 PM
--- NOTE | 2021-06-20 13:15 | W.PM.OPSUD ---
Surgery/Procedure H&P Update DATE OF PROCEDURE: June 20, 2021 DATE H&P PERFORMED: 06/19/21 H&P UPDATE INFORMATION: I have reviewed H&P completed within last 30 days, I have examined patient prior to procedure and No changes to prior documentation PREOP DIAGNOSIS: Chest pain despite optimization medicine/unstable angina PATIENT REASSESSED PRIOR TO SEDATION, WITH NO CHANGE NOTED: Yes PHYSICAL EXAM: alert, oriented x 3 and clear to auscultation bilaterally AIRWAY EVAL/ANESTHESIA PLAN: ASA II and Risks, benefits & alternatives of sedation and/or procedure discussed ADDITIONAL INFORMATION: All risk benefits and alternative for the procedure including stroke major minor bleed urgent emergent bypass surgery was explained to the patient he would like to proceed with it. He is a candidate for DAPT
--- NOTE | 2021-06-20 13:29 | PC.CHAP ---
Pastoral Care Encounter/Spiritual Assessment Type of Contact [] Declined facer operator visit [] Patient/Family/Request visit [] Outpatient visit [] Follow-up visit [] Physician referral [] Code/Alert [xx] Routine visit [] Staff referral [] Actively dying [] Patient sleeping [] Family support [] [] Out of room [] Palliative care [] [] Receiving care in room [] Pre-surgical visit [] Trauma [] Long length of stay [] ICU visit [] Other: Relational/Emotional Strength [xx] Patient feels connected with others/family/visitors/staff [] Distress [] Loneliness/isolation [] Abandonment Spirituality of Patient [] Person of Adela [] Attends Congregational of their Adela [xx] Believes in Prayer [] Reads Bible or Buddhism materials [] There are Spiritual issues to be addressed Mechanical Sound Technician Interventions [xx] Prayer [xx] Active listening [xx] Non-anxious presence [] Spiritual/emotional support [] Crisis/trauma care [] Spiritual counseling [] Bereavement support [] Provided bereavement packet [xx] Provided Bible/devotional materials [] Provided toy/stuffed animal, coloring book to patient or family member [] Provided Communion [] Anointing/[place] [] Salvation [xx] Completed spiritual assessment [] Other: Impact on Illness or Injury [] Angry [] Fearful [] Anxious [] Often cries [] Exhaustion [xx] Unable to work [] Unable to attend church [] Unable to walk/stand [] Unable to read [xx] Unable to drive [] Unable to eat/drink [] Unable to sleep [] Unable to be with family [] Patient intubated [] Other: Summary Patient was not very talkative. He was very jittery and nervous. Time spent with patient 3 minutes
[2021-06-20] MEDS: sodium chloride 0.9% 1,000 ML 100 ML IV (13:34)
[2021-06-20] MEDS: clopidogrel 300 mg Tablet PO (13:34)
--- NOTE | 2021-06-20 13:57 | PC.NURSE ---
Patient arrived to [facility] from [employer], report recieved from YESIKA Gallagher. Patient VS stable, TR band in place, no hematoma present. Patient oriented to room and use of call mendez. Patient educated regarding activity restriction
--- NOTE | 2021-06-20 16:00 | PC.NURSE ---
Attempted to collect covid swab, patient refused.
[2021-06-20 16:12] LABS: Glucose Point of Care 333 mg/dL (70-110)
[2021-06-20] MEDS: insulin lispro 100 unit/1 mL SUBCUT (17:03)
[2021-06-20] MEDS: metoprolol tartrate 25 mg Tablet 12.5 MG PO (17:03)
[2021-06-20 20:34] LABS: Glucose Point of Care 274 mg/dL (70-110)
--- NOTE | 2021-06-20 21:22 | PM.PN ---
Subjective Subjective: Interval history: Persistent left-sided chest discomfort. Coronary angiography today. Vitals/I&O/Wt Last Vital Signs Temp 97.6 F 06/20/21 19:02 Pulse 72 06/20/21 19:02 Resp 18 06/20/21 19:02 BP 130/86 06/20/21 19:02 Pulse Ox 94 06/20/21 08:17 06/20/21 06/20/21 06/20/21 06:59 14:59 22:59 Intake Total 236 / 236 Balance 236 / 236 Weight last 48 hrs Weight 154.131 kg Physical Exam Const: COMMON NORMALS: no acute distress and patient oriented x3 NUTRITIONAL APPEARANCE: obese HENMT: COMMON NORMALS: oropharynx normal Neck/C-Spine: COMMON NORMALS: no JVD Resp: COMMON NORMALS: normal respiratory effort and clear to auscultation bilaterally AUSCULTATION: clear to auscultation bilaterally Cardio: COMMON NORMALS: no JVD, regular rhythm, S1 normal heart sound present, S2 normal heart sound present and No murmurs present (Cardio) RHYTHM: regular rhythm HEART SOUNDS: S1 normal heart sound present and S2 normal heart sound present GI: COMMON NORMALS: Normal to inspection, nondistended, normoactive bowel sounds present, Soft to palpation and non-tender PALPATION: Yes Soft to palpation Extremity: COMMON NORMALS: no joint enlargement and no pedal edema Neuro: COMMON NORMALS: patient oriented x3 and moves all extremities Skin: COMMON NORMALS: no rashes or lesions noted GENERAL SKIN EXAM: no rashes or lesions noted and other (Extensive/elaborate tattoos) Data : 06/20/21 06:02 06/20/21 06:02 A&P Assessment and plan (1) Chest pain: Underwent coronary angiography and PCI. Continue post PCI care. Discussed results of TTE and significant decrease in ejection fraction to 45%. Subsequent discussed results of stress testing. Noted area of ME or scarring, no active ischemia visualized. Left-sided chest pain, radiating to posterior axilla, reports dean to his prior ME. With prior total occlusion of RCA, with STEMI complicated by V. fib arrest, with 3 stents placed in 2008. Continue ASA, Plavix, beta-mario alberto, statin. Troponin series 010 suggestive of acute ME. EKG without ME. Occasional VPCs Nitroglycerin as needed. Telemetry monitoring. Status: Acute Qualifiers: Chest pain type: other chest pain Qualified Code(s): R07.89 - Other chest pain Attestations Medical Necessity Statement*: Continue hospitalization for post PCI care with anticipated discharge tomorrow. Coding Level of Care Code Acute Surveillance Systems [facility] Chest pain R07.89 Chest pain type: other chest pain
[2021-06-20] MEDS: enoxaparin 40 mg/0.4 mL Syringe SUBCUT (21:31)
[2021-06-21 01:35] VITALS: PULSE 56
[2021-06-21 03:47] VITALS: BP 109/69; PULSE 68; RESP 18; O2SAT 95
[2021-06-21 04:46] VITALS: PULSE 57
[2021-06-21] MEDS: atorvastatin 40 mg Tablet PO (05:00)
[2021-06-21] MEDS: clopidogrel 75 mg Tablet PO (05:00)
[2021-06-21] MEDS: aspirin 325 mg Tablet PO (05:00)
[2021-06-21 05:05] LABS: Basophils % 0.5 %; Eosinophils # 0.1 10^3/uL (0.0-0.8); Eosinophils % 2.3 %; Hemoglobin 17.4 g/dL (11.7-16.6); Mean Corpuscular HGB Conc 34.8 g/dL (30.0-36.0); Mean Corpuscular Hemoglobin 31.9 pg (28.0-34.0); Mean Corpuscular Volume 91.7 fl (80-94); Mean Platelet Volume 10.3 fL (7.4-10.4); Monocytes # 0.4 10^3/uL (0.2-0.9); Monocytes % 7.5 %; Neutrophils # 3.17 10^3/uL (1.8-7.7); Neutrophils % 55.4 %; Nucleated Red Blood Cells % 0 %; Platelet Count 122 10^3/cmm (130-400); Red Blood Count 5.45 10^6/uL (4.1-5.3); White Blood Count 5.7 10^3/uL (4.0-10.0)
[2021-06-21 05:24] LABS: Blood Urea Nitrogen 13 mg/dL (6-20); Calcium 8.6 mg/dL (8.5-10.5); Carbon Dioxide 23 mmol/L (22-29); Chloride 102 mmol/L (98-107); Glucose 218 mg/dL (65-115); Osmolality Calculated 293 mOsm/kg (285-295); Sodium 138 mmol/L (136-145)
[2021-06-21 05:30] LABS: Anion Gap 17.4 (5-19); Potassium 4.4 mmol/L (3.5-5.1)
[2021-06-21 06:41] LABS: Glucose Point of Care 226 mg/dL (70-110)
--- NOTE | 2021-06-21 07:04 | PC.NURSE ---
Patient refuses to have covid test. Education provided, patient verbalizes understanding of all teaching.
[2021-06-21 08:00] VITALS: BP 129/84; PULSE 66; RESP 16; O2SAT 96
[2021-06-21] MEDS: metoprolol tartrate 25 mg Tablet 12.5 MG PO (08:03)
[2021-06-21] MEDS: insulin lispro 100 unit/1 mL SUBCUT ×2 (08:03→11:26)
[2021-06-21 11:15] LABS: Glucose Point of Care 261 mg/dL (70-110)
--- NOTE | 2021-06-21 12:12 | PM.PN ---
Subjective Subjective: Interval history: Status post 2 overlapping drug-eluting stent to proximal ramus intermedius. No overnight event except for some shortness of breath. Medications: Reviewed: Yes Vitals/I&O/Wt Last Vital Signs Temp 97.6 F 06/20/21 19:02 Pulse 66 06/21/21 08:00 Resp 16 06/21/21 08:00 BP 129/84 06/21/21 08:00 Pulse Ox 96 06/21/21 08:00 06/20/21 06/21/21 06/21/21 22:59 06:59 14:59 Intake Total 236 / 236 1200 / 1436 240 / 240 Balance 236 / 236 1200 / 1436 240 / 240 Physical Exam Narrative: EXAM NARRATIVE: GENERAL: Patient is alert, awake and oriented x3. Tattoos all over the body. NECK: No jugular vein distension. HEENT: No cyanosis. No icterus. No pallor. HEART: Regular S1 and S2. No murmur, rub or gallop. LUNGS: Clear to auscultate bilaterally. ABDOMEN: Soft, nontender and nondistended. Positive bowel sounds. No guarding, rebound or tenderness. CENTRAL NERVOUS SYSTEM: Grossly nonfocal. EXTREMITIES: Lower extremities without edema bilaterally. Const: COMMON NORMALS: alert Resp: COMMON NORMALS: clear to auscultation bilaterally AUSCULTATION: clear to auscultation bilaterally Neuro: SENSORIUM/ORIENTATION: Yes alert Data : 06/21/21 04:49 06/21/21 04:49 A&P Assessment and plan (1) Chest pain: Status post drug-eluting stent to proximal ramus intermedius. Patient was also noted to have chronically occluded RCA with [id number] collaterals. LAD and circumflex did not show significant disease. He has moderately depressed ejection fraction by nuclear stress test. Status: Acute Qualifiers: Chest pain type: other chest pain Qualified Code(s): R07.89 - Other chest pain (2) History of ventricular fibrillation: History of V. fib arrest on initial presentation with STEMI few years back otherwise no further arrhythmia was noted. Status: Acute (3) Atherosclerotic heart disease of [place] coronary artery with other forms of angina pectoris: Status post drug-eluting stent to proximal ramus intermedius continue aspirin and statin clopidogrel. Advised to be compliant. Status: Acute (4) LV dysfunction: We will add RAJESH inhibitor. Sports, continue beta-mario alberto RAJESH inhibitor's Status: Acute (5) Morbid obesity: Advised to lose weight Status: Acute (6) Dyslipidemia: Advised to continue on statin which he has discontinued in the past without any reason Status: Acute Additional A&P Information His other problems are as outlined before. Because of the patient's ongoing worsening of the symptoms, in order to further evaluate the coronary status, a repeat cardiac catheterization would be appropriate. I will be discussing this with (patient's wind project manager) in the morning. Patient may be kept n.p.o. after midnight. Dr. Parks, n after talking to the patient, will make the final decision about the angiogram. In the meanwhile, he may continue on the current medications. Thank you for the opportunity to eval this patient make these recommendations Attestations Medical Necessity Statement*: Patient can be discharged home. Coding Level of Care Code Established Pt Acute Production Machine Operator for Dariana Fwyael Patient Type Established History Detailed Exam Detailed Medical Decision Making Moderate Complexity Diagnoses Chest pain R07.89 Chest pain type: other chest pain History of ventricular fibrillation Z86.79 Atherosclerotic heart disease of [place] coronary artery with other forms of angina pectoris I25.118 LV dysfunction I51.9 Morbid obesity E66.01 Dyslipidemia E78.5
[2021-06-21 13:45] VITALS: BP 129/84; PULSE 66; RESP 16; O2SAT 96
--- NOTE | 2021-06-21 13:49 | PC.NURSE ---
discharge instructions given and explained.pt verb understanding of instructions.discharged to exit ambulatory.friend to drive pt home.
--- NOTE | 2021-06-21 18:30 | PM.DCS ---
Discharge Providers Date of Admission: 06/18/21 10:21 Date of Discharge: June 21, 2021 Attending Provider at Admission: Salvatore Dubose Attending Provider at Discharge: Salvatore Dubose Primary Care Provider: Alok Gonzales MD Diagnoses at Discharge Discharge Diagnosis (1) Chest pain: Status: Acute Qualifiers: Chest pain type: other chest pain Qualified Code(s): R07.89 - Other chest pain (2) History of ventricular fibrillation: Status: Acute (3) Atherosclerotic heart disease of [place] coronary artery with other forms of angina pectoris: Status: Acute (4) LV dysfunction: Status: Acute (5) Morbid obesity: Status: Acute (6) Dyslipidemia: Status: Acute Reason for Visit Reason for Visit: CHEST PAIN Hospital Course Hospital Course 51-year-old gentleman with past history of CAD, 2 stents in RCA after STEMI in 2008 complicated by V. fib arrest, diabetes, 8 months ago COVID-19, subsequently associated with chronic fatigue, muscle mass loss, weight gain, obesity, presented to ER due to left-sided chest pain radiating to the posterior axilla, back, which woke him up early this morning, he takes nitroglycerin at home but states the tablets were old, did get relief with nitroglycerin which he received in EMS. Reports pain was similar to episode when he was having his TX previously. Does have some pain on palpation of the left side of the chest as well which she initially thought perhaps was the cause of his discomfort. Denies dyspnea or cough. No hemoptysis. No lower extremity swelling. No orthopnea. Troponin series and EKG were not suggestive of acute TX, he underwent additional assessment with echocardiogram and stress testing, with noted ejection fraction diminished from prior 45%, thickened aortic and mitral valve, mildly increased left atrial size, trace tricuspid and pulmonic regurgitation, plaque in ascending aorta echo-free space and posterior aspect of left ventricle suggesting left-sided pleural effusion, technically difficult study due to poor ultrasonic window. Due to difficulties with ambulation at baseline underwent chemical stress test with nuclear perfusion with noted large area of old myocardial infarction versus scarring noted in basal to distal inferior and inferolateral wall without ischemia. Study negative for ischemia. Continued, however, to experience discomfort in the left side of his chest, was assessed by cardiology, subsequently underwent additional assessment by coronary angiography with finding of hemodynamically significant lesion of proximal ramus intermedius for which he underwent PCI with stenting. Without additional events, he was discharged today after he was reassessed by cardiology. Additional medications were started due CAD and cardiomyopathy as below. Metoprolol was discontinued due to short episodes of bradycardia down into low 40s noted on telemetry. Physical Exam Narrative: EXAM NARRATIVE: Discharge arrangements made for patient by cardiology. He left before I could see him. Discharge Data Data Completed and Pending: Completed Studies During Hospitalization Category Date Time Status Sestamibi Stress Test Request Routi ne Exams 06/19/21 08:00 Draft XR chest 1V agustin ble [id number] Urgent Exams 06/18/21 08:41 Completed NM heaven perf SPECT r/s* [id number] Routin e Nuc Med 06/19/21 15:40 Completed CV. 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 SUPERVISOR request for service Routin e Exams 06/20/21 11:20 Ordered Coronavirus PCR R outine Lab 06/18/21 15:42 Ordered Labs from last 24 hours 06/21/21 06/21/21 06/21/21 11:11 06:27 04:49 WBC RBC Hgb Hct MCV MCH MCHC RDW Plt Count MPV Neut % (Auto) Lymph % (Auto) [place] % (Auto) Eos % (Auto) Baso % (Auto) Neut # (Auto) Lymph # (Auto) [place] # (Auto) Eos # (Auto) Baso # (Auto) Nucleated RBC % (a uto) Nucleated RBCs # Sodium 138 Potassium 4.4 Chloride 102 Carbon Dioxide 23 Anion Gap 17.4 BUN 13 Creatinine 0.6 L GFR Calculation 142.0 H Glucose 218 H POC Glucose 261 H 226 H Calculated Osmolal ity 293 Calcium 8.6 06/21/21 06/20/21 04:49 20:17 WBC 5.7 RBC 5.45 H Hgb 17.4 H Hct 50.0 MCV 91.7 MCH 31.9 MCHC 34.8 RDW 12.0 L Plt Count 122 L MPV 10.3 Neut % (Auto) 55.4 Lymph % (Auto) 34.0 [place] % (Auto) 7.5 Eos % (Auto) 2.3 Baso % (Auto) 0.5 Neut # (Auto) 3.17 Lymph # (Auto) 2.0 [place] # (Auto) 0.4 Eos # (Auto) 0.1 Baso # (Auto) 0.0 Nucleated RBC % (a uto) 0 Nucleated RBCs # 0.0 Sodium Potassium Chloride Carbon Dioxide Anion Gap BUN Creatinine GFR Calculation Glucose POC Glucose 274 H Calculated Osmolal ity Calcium Vitals: Last Vital Signs Temp 97.6 F 06/20/21 19:02 Pulse 66 06/21/21 13:45 Resp 16 06/21/21 13:45 BP 129/84 06/21/21 13:45 Pulse Ox 96 06/21/21 13:45 Discharge Plan Discharge Patient Disposition: Home Condition: Stable Prescriptions: New losartan 25 mg tablet 25 mg PO DAILY Qty: 90 RF: 0 empagliflozin 10 mg tablet 10 mg PO QAM Qty: 90 RF: 0 nitroglycerin 0.4 mg tablet, sublingual 0.4 mg sublingual Q5M PRN (Reason: chest pain) Qty: 25 RF: 0 Lasix 20 mg tablet 20 mg PO QAM Qty: 30 RF: 4 Continued ascorbic acid (vitamin C) [Vitamin C] 500 mg Tablet 500 mg PO BID RF: 0 omega 5-sia-kvl-fish oil [Fish Oil] 1,000 mg (120 mg-180 mg) Capsule 1 cap PO BID RF: 0 aspirin 325 mg Tablet 325 mg PO QAM RF: 0 Vitamin B-12 1,000 mcg Tablet 1,000 mcg PO BID RF: 0 metformin 500 mg Tablet Extended Release 24 Hr 500 mg PO BID RF: 0 Vitamin D3 25 mcg (1,000 unit) Tablet 50 mcg PO BID RF: 0 Bioflex 744-68-26-40 mg Tablet 1 tab PO BID RF: 0 Centrum Silver Men 300-600-300 mcg Tablet 1 tab PO BID RF: 0 testosterone cypionate 200 mg/mL Kit 100 mg IM .ON THE & RF: 0 atorvastatin 40 mg tablet 40 mg PO QAM RF: 0 Plavix 75 mg tablet 75 mg PO QAM RF: 0 Discontinued metoprolol tartrate 25 mg tablet 12.5 mg PO BID RF: 0 Discharge Orders: Discharge Order (Routine); Ordered 06/21/21 Ordered By: Nate Parks Referrals: Alok Gonzales MD [Primary Care Provider] - 4-7 days ([facility] will contact you to schedule follow-up appointment in 4 to 7 days. If you haven't heard from them by Wednesday. Please call ) Gerda Calles FNP [Nurse Practitioner] - 1 week ([facility] will contact you to schedule an follow-up appointment with Gerda Calles in 1 week. If you haven't heard from them by Wednesday. Please call ) Discharge Diet: Cardiac Discharge Activity: Increase activity as tolerated Patient Instructions: Nitroglycerin (By mouth) (Nitro-Time), Losartan (By mouth), Empagliflozin (By mouth) (Jardiance), Heart Attack (DC), Heart Failure (GEN), Coronary Artery Disease (GEN), Coronary Angioplasty (DC), CHF Stoplight, Post Angiogram Home Care Instructions, Post Heart Attack Stoplight Activity Restrictions/Additional Instructions: Due to few episodes of heart rates for short. Going as low as 40 bpm, please stop taking metoprolol which may be slowing down your heart rate too much. Please follow-up with your primary doctor and heart doctor to continue optimize risk factors of cardiovascular disease, discuss with your primary doctor lifestyle changes, help with weight loss. Continue medications for coronary artery disease. Discussed with your primary doctor and her doctor regarding reduced pumping action of the heart with reduced ejection fraction down to 45%. Discussed follow-up reassessment. Watch out for signs of congestive heart failure. If you notice significant shortness of breath with exertion, lying flat, lower extremity swelling, contact your heart doctors office. If you experience chest pain not resolving with 3 doses of nitroglycerin, please call 911. Discharge Attestations Time Spent in Discharge Care*: greater than 30 min Quality Metrics Clinical Quality Measures During this hospital stay, did patient experience: None Coding Level of Care Code Acute g FW DC note Diagnoses Chest pain R07.89 Chest pain type: other chest pain History of ventricular fibrillation Z86.79 Atherosclerotic heart disease of [place] coronary artery with other forms of angina pectoris I25.118 LV dysfunction I51.9 Morbid obesity E66.01 Dyslipidemia E78.5
== END 2021-06-21 13:30 | disposition home or self-care (01) ==
LOC: ER 10:40 → MEDSURG 15:11 → CSU 06-20 12:50
PROVIDERS: Internal Medicine Cardiovascular Disease; Physician Assistant; Admitting Provider Internal Medicine; Emergency Provider Emergency Medicine; PCP Family Medicine; Visit Provider Internal Medicine
DX: R07.89 Other chest pain (principal); R78.9 Finding of unspecified substance, not normally found in blood; Z86.79 Personal history of other diseases of the circulatory system; I25.118 Atherosclerotic heart disease of native coronary artery with other forms of angina pectoris; I51.9 Heart disease, unspecified; E66.01 Morbid (severe) obesity due to excess calories; Z68.39 Body mass index [BMI] 39.0-39.9, adult; E78.5 Hyperlipidemia, unspecified; Z95.5 Presence of coronary angioplasty implant and graft; E11.9 Type 2 diabetes mellitus without complications; Z86.16 Personal history of COVID-19; Z79.84 Long term (current) use of oral hypoglycemic drugs; Z79.02 Long term (current) use of antithrombotics/antiplatelets; Z79.82 Long term (current) use of aspirin
CPT/HCPCS: 36415; 36416; 71045; 78452; 80048; 80053; 82962; 83690; 83880; 84484; 85025; 85347; 85378; 85610; 85730; 93005; 93017; 93306; 96372; 99285; A9500; C1725; C1769; C1874; C1887; C1894; C9600; G0378; J1644; J1650; J1815; J2250; J2785; J3010; J3490; J7030; Q9967

== ENCOUNTER 2023-05-28 13:54 | Observation (INO) | payer OTHER, SELFPAY ==
[2023-05-28] VITALS (9 sets, daily range): BP systolic 110–132; BP diastolic 75–108; PULSE 70–95; RESP 10–20; O2SAT 92–99; BMI 43.3
--- NOTE | 2023-05-28 13:57 | XR_ITS ---
WS: [id number] Portable AP upright chest, 05/28/2023 Clinical Data: chest pain Comparison: Portable chest, 06/18/2021 Findings: No nodules, masses or effusions are seen. The heart is enlarged. The pulmonary vascularity is not increased. No pneumonia or pneumothorax is seen. The aortic arch and descending thoracic aorta show tortuosity. Monitor leads are on the chest wall. Impression: Atherosclerosis and cardiomegaly.
--- NOTE | 2023-05-28 13:58 | ECG_ITS ---
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 Measurements Intervals [place] Rate: 91 P: 44 MA: 159 QRS: 19 QRSD: 110 T: -16 QT: 356 QTc: 438 Interpretive Statements SINUS RHYTHM INFERIOR MYOCARDIAL INFARCTION , OF INDETERMINATE AGE [40+ ms Q WAVE AND/OR ST/T ABNORMALITY IN II/aVF] Nonspecific T wave changes Compared to ECG 06/18/2021 10:55:40 Ventricular premature complex(es) no longer present Myocardial infarct finding still present Electronically Signed On 05-29-2023 18:33:19 SOFTWARE ENGINEERING ASSOCIATE MANAGER by Larissa Funez M.D. [email or web address]
[2023-05-28 14:29] LABS: Basophils # 0.1 10^3/uL (0.0-0.1); Basophils % 0.8 %; Eosinophils # 0.6 10^3/uL (0.0-0.8); Eosinophils % 9.2 %; Hematocrit 50.6 % (37-53); Lymphocytes # 2.1 10^3/uL (0.8-4.8); Mean Corpuscular HGB Conc 34.2 g/dL (30-55); Mean Corpuscular Hemoglobin 32.3 pg (27-33); Mean Corpuscular Volume 94.6 fl (82-101); Mean Platelet Volume 10.2 fL (7.4-10.4); Monocytes # 0.5 10^3/uL (0.2-0.9); Monocytes % 7.2 %; Neutrophils # 3.35 10^3/uL (1.8-7.7); Neutrophils % 50.5 %; Nucleated Red Blood Cells % 0 %; Platelet Count 140 10^3/cmm (157-399); Red Blood Count 5.35 10^6/uL (3.85-5.65); Red Cell Distribution Width 13.3 % (12.1-15.1); White Blood Count 6.63 10^3/uL (3.29-11.43)
[2023-05-28 14:43] LABS: Alanine Aminotransferase 27 U/L (0-41); Albumin Level 4.1 g/dL (3.5-5.2); Alkaline Phosphatase 159 U/L (40-130); Aspartate Amino Transferase 17 U/L (0-40); Blood Urea Nitrogen 13 mg/dL (6-20); Calcium 9.3 mg/dL (8.5-10.5); Carbon Dioxide 22 mmol/L (22-29); Chloride 101 mmol/L (98-107); Creatinine Clr Calc Pharmacy 148.4786; Globulin 2.9 g/dL (1.3-4.6); Glomerular Filtration Rate 78.2 mL/min (90-130); Glucose 330 mg/dL (65-115); Osmolality Calculated 295 mOsm/kg (285-295); Sodium 136 mmol/L (136-145); Total Bilirubin 0.6 mg/dL (0.15-1.2)
[2023-05-28 14:46] LABS: Anion Gap 17.2 (5-19); Potassium 4.2 mmol/L (3.5-5.1); Troponin(5th) Baseline 12 ng/L (0-15)
--- NOTE | 2023-05-28 14:46 | W.ED.CHESTPA ---
HPI - Chest Pain General: Chief Complaint: Chest Pain Stated Complaint: chest pain Time Seen by Provider: 05/28/23 13:56 History of Present Illness: Patient presents to the ER with complaints of chest pain. Patient states it began about 3:00 this morning woke him up from a sleep his heart felt he was getting ready to pound out of his chest. He took a nitro and it resolved a little bit but then a couple hours later it woke him up to an exact same thing he took another nitro it resolved for a little bit but then Progressed throughout the day. Patient does have a history of at least 1 cardiac stent. Patient states he feels exactly the same way now as he did when his last stent was clogged. Patient does state he has some trembling and some overall weakness and just feels not right. His last stent was approximately [address] Koo right before he left. Patient is currently on aspirin 325 mg, atorvastatin 40 mg, Plavix 75 mg, Lasix 20 mg, isosorbide 30 mg, patient is a diabetic on metformin. Review of Systems General: Reports: 10 or more systems reviewed and unremarkable except in HPI and below PFSH ED PFSH: Medical History History of ventricular fibrillation Ventricular fibrillation Cardiac arrest CAD (coronary artery disease) Shortness of breath Chest pain Surgical History History of coronary artery stent placement History of nasal surgery H/O knee surgery Family History Mother Diabetes Cancer Ovarian Father CAD (coronary artery disease), Onset Age: 70 Social History Smoking and tobacco/nicotine status: former use of tobacco/nicotine Second hand smoke exposure: No Alcohol intake: current Alcohol intake frequency: holidays/special occasions only Substance/Drug Use: current Lives independently: Yes Household members: spouse Marital status: Current occupational status: employed Current gender identity: Male Special hayden needs: No Physical Exam Const: COMMON NORMALS: no acute distress, average body habitus, patient oriented x3, no limitations, healthy appearing, alert and well nourished HENMT: COMMON NORMALS: normocephalic, atraumatic, hearing grossly normal bilaterally, external ears normal, Normal external nose present, moist oral mucous membranes and oropharynx normal HEAD & SCALP: normocephalic and atraumatic NOSE: Normal external nose present EXTERNAL EAR: Yes external ears normal Eye: COMMON NORMALS: Equal, round and reactive pupils present, EOMs intact bilaterally, conjunctivae normal and no scleral icterus CONJUNCTIVA: Yes conjunctivae normal PUPIL: Yes Equal, round and reactive pupils present Neck/C-Spine: COMMON NORMALS: full ROM, no lymphadenopathy, supple, no meningeal signs, no JVD and Thyroid normal THYROID: Thyroid normal Chest: COMMONS NORMALS: normal inspection of the chest and normal palpation of entire chest wall Resp: COMMON NORMALS: normal respiratory effort, No retractions, No use of accessory muscles and clear to auscultation bilaterally AUSCULTATION: clear to auscultation bilaterally Cardio: COMMON NORMALS: no JVD, regular rate, regular rhythm, S1 normal heart sound present, S2 normal heart sound present, No gallops present (Cardio), No clicks present (Cardio), No murmurs present (Cardio) and No rub (Cardio) RATE: regular rate RHYTHM: regular rhythm HEART SOUNDS: S1 normal heart sound present and S2 normal heart sound present GI: COMMON NORMALS: Normal to inspection, nondistended, normoactive bowel sounds present, Soft to palpation, non-tender, No hepatosplenomegaly present and no masses PALPATION: Yes Soft to palpation and Yes No hepatosplenomegaly present Neuro: COMMON NORMALS: patient oriented x3 SENSORIUM/ORIENTATION: Yes alert MENINGEAL SIGNS: Yes no meningeal signs Course Vital Signs: Vital signs: Vital Signs Pulse Rate 79 05/28/23 16:46 Respiratory Rate 18 05/28/23 16:46 Blood Pressure 110/75 05/28/23 16:46 Pulse Oximetry 92 05/28/23 16:46 Oxygen Delivery Me thod Room Air 05/28/23 16:46 MDM - Chest Pain Medical Decision Making Patient presents to the ER with complaints of chest pain starting this morning. Patient is chest pain-free upon arrival to the ER. Patient was worked up in normal chest pain fashion. Patient is negative on paper. Due to patient's history with multiple stents and possible occlusion of 1 and similar symptoms in the past. Patient be placed in observation. Dr. Funez was consulted who plans on doing a angiogram in the morning unless something changes. Dr. Roberson was consulted who is agreeable for observation. It was told to the patient he is agreeable. Differential Diagnosis Unlikely acute massive pulmonary embolism, acute respiratory failure, acute myocardial infarction, cardiac arrest or sudden cardiac Medical Records I reviewed the patient's medical records. Lab Data I reviewed the patient's lab results. 05/28/23 14:17 05/28/23 14:17 Laboratory Results WBC 6.63 10^3/uL (3.29-11.43) 05/28/23 14:17 RBC 5.35 10^6/uL (3.85-5.65) 05/28/23 14:17 Hgb 17.30 g/dL (11.27-16.99) H 05/28/23 14:17 Hct 50.6 % (37-53) 05/28/23 14:17 MCV 94.6 fl (82-101) 05/28/23 14:17 MCH 32.3 pg (27-33) 05/28/23 14:17 MCHC 34.2 g/dL (30-55) 05/28/23 14:17 RDW 13.3 % (12.1-15.1) 05/28/23 14:17 Plt Count 140 10^3/cmm (157-399) L 05/28/23 14:17 MPV 10.2 fL (7.4-10.4) 05/28/23 14:17 Neut % (Auto) 50.5 % 05/28/23 14:17 Lymph % (Auto) 32.0 % 05/28/23 14:17 [place] % (Auto) 7.2 % 05/28/23 14:17 Eos % (Auto) 9.2 % 05/28/23 14:17 Baso % (Auto) 0.8 % 05/28/23 14:17 Neut # (Auto) 3.35 10^3/uL (1.8-7.7) 05/28/23 14:17 Lymph # (Auto) 2.1 10^3/uL (0.8-4.8) 05/28/23 14:17 [place] # (Auto) 0.5 10^3/uL (0.2-0.9) 05/28/23 14:17 Eos # (Auto) 0.6 10^3/uL (0.0-0.8) 05/28/23 14:17 Baso # (Auto) 0.1 10^3/uL (0.0-0.1) 05/28/23 14:17 Nucleated RBC % (auto) 0 % 05/28/23 14:17 Nucleated RBCs # 0.0 /100WBC 05/28/23 14:17 Sodium 136 mmol/L (136-145) 05/28/23 14:17 Potassium 4.2 mmol/L (3.5-5.1) 05/28/23 14:17 Chloride 101 mmol/L (98-107) 05/28/23 14:17 Carbon Dioxide 22 mmol/L (22-29) 05/28/23 14:17 Anion Gap 17.2 (5-19) 05/28/23 14:17 BUN 13 mg/dL (6-20) 05/28/23 14:17 Creatinine 1.0 mg/dL (0.7-1.2) 05/28/23 14:17 GFR Calculation 78.2 mL/min (90-130) L 05/28/23 14:17 Glucose 330 mg/dL (65-115) H 05/28/23 14:17 Calculated Osmolality 295 mOsm/kg (285-295) 05/28/23 14:17 Calcium 9.3 mg/dL (8.5-10.5) 05/28/23 14:17 Total Bilirubin 0.6 mg/dL (0.15-1.2) 05/28/23 14:17 AST 17 U/L (0-40) 05/28/23 14:17 ALT 27 U/L (0-41) 05/28/23 14:17 Alkaline Phosphatase 159 U/L (40-130) H 05/28/23 14:17 Troponin T Baseline 12 ng/L (0-15) 05/28/23 14:17 Troponin T 120 Minute 11.30 ng/L (0-15) 05/28/23 16:14 Delta Troponin T -0.70 ABS# (0-10) L 05/28/23 16:14 Total Protein 7.0 g/dL (6.6-8.7) 05/28/23 14:17 Albumin 4.1 g/dL (3.5-5.2) 05/28/23 14:17 Globulin 2.9 g/dL (1.3-4.6) 05/28/23 14:17 All radiology interpretation(s) finalized by discharge EKG Data EKG 1: I personally reviewed and interpreted this EKG as follows: EKG interpretation date: 05/28/23 EKG interpretation time: 13:58 Prior EKG tracings: not available for review Interpretation: EKG shows ventricular rate 91 beats minute, FL interval 159, QRS duration 110, QTc of 404, sinus rhythm, Q waves in 2 and aVF EKG 2: I personally reviewed and interpreted this EKG as follows: EKG interpretation date: 05/28/23 EKG interpretation time: 16:07 Prior EKG tracings: available for review Interpretation: EKG showed ventricular rate 83 beats minute, FL interval 166, QRS duration 108, QTc of 414, sinus rhythm with occasional PVC Discharge Plan Discharge Patient Disposition: Placed in Observation Clinical Impression: Unstable angina, Atherosclerotic heart disease of [place] coronary artery with other forms of angina pectoris, Morbid obesity Coding Level of Care Code ED Patternmaker Apprentice Metal for Dariana Still
--- NOTE | 2023-05-28 15:57 | ECG_ITS ---
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 Measurements Intervals [place] Rate: 83 P: 21 [place]: 166 QRS: 19 QRSD: 108 T: -13 QT: 374 QTc: 441 Interpretive Statements SINUS RHYTHM WITH OCCASIONAL VENTRICULAR PREMATURE COMPLEXES INFERIOR MYOCARDIAL INFARCTION , OF INDETERMINATE AGE [40+ ms Q WAVE AND/OR ST/T ABNORMALITY IN II/aVF] Compared to ECG 05/28/2023 13:58:15 Ventricular premature complex(es) now present Myocardial infarct finding still present Electronically Signed On 05-29-2023 18:47:23 TRAFFIC LINE PAINTER by Larissa Funez M.D. [email or web address]
--- NOTE | 2023-05-28 17:28 | P.HP_ITS ---
Providers/Chief Complaint 2 Primary Care Provider: Alok Gonzales MD Chief Complaint: chest pain History of Present Illness Stanley Betts is a 53 year old male with past medical history of CAD, post PCI, post in-stent restenosis in 2021, morbid obesity, type 2 diabetes mellitus who has not seen a sociology professor in over 2 years, congestive heart failure with known EF of 45% presents to the ER today because of ongoing chest pain which woke him up today at around 3 AM. Patient also states that around 3 AM he felt as if his heart is bounding too fast and would jump out of his chest. He does give history of ventricular fibrillation in past. Patient tried nitro at home which helped him for short while but because pain kept coming back more frequently today so he presented to the ER. Patient states pain is similar to his chest pain when he had in-stent restenosis. Patient states he has been having on and off chest pain with exertion for last couple of years but he did not have insurance so did not come to the ER. Review of Systems 2 General: Reports: 10 or more systems reviewed and unremarkable except in HPI and below Const: Denies: fever(s), chills, body aches, change in appetite, change in weight, malaise, night sweats, diaphoresis, change in sleep pattern, daytime sleepiness or snoring Eyes: Denies: change in vision, blurry vision, photophobia, eye discomfort or eye discharge ENMT: Denies: throat pain, enlarged tonsils, hoarseness, mouth pain, oral sores, dry mouth, tinnitus, nasal congestion or post nasal drip Card: Denies: chest pain, palpitations, irregular heart rhythm, edema, swelling of feet/ankles, lightheadedness, syncope, pre-syncope, dyspnea on exertion, orthopnea, leg pain with exertion or acrocyanosis Resp: Denies: dyspnea, productive cough, non-productive cough, wheezing, stridor, pain on inspiration, change in phlegm color, hemoptysis or chest congestion GI: Denies: abdominal pain, nausea, vomiting, hematemesis, coffee ground emesis, dysphagia, heartburn, diarrhea, constipation, bloating, GI cramping, change in bowel habits, pain on defecation, hematochezia or melena : Denies: flank pain, difficulty urinating, dysuria, urinary frequency, urinary urgency, urinary hesitancy, urinary dribbling, difficulty starting urination, change in urine stream, nocturia or hematuria Musc: Denies: neck pain, back pain, extremity pain, joint pain, joint swelling, joint redness, joint stiffness or limited range of motion Neuro: Denies: headache(s), numbness in extremities, weakness in extremities, sensory changes, lack of coordination, difficulty walking, frequent falls, dizziness, vertigo, confusion, Slurred speech present, difficulty communicating thoughts or seizure-like activity Psych: Denies: anxiety, depression, mood swings, panic attacks, hopelessness or irritability Endo: Denies: polyuria, polydipsia, tired all the time, cold intolerance, excessive sweating, flushing or heat intolerance Tadeo/Lymph: Denies: easy bruising or easy bleeding All/Imm: Denies: tongue swelling, facial swelling or acute wheezing Medications/Allergies Home Medications Medication Instructions Recorded Confirmed Last Taken Type ascorbic acid (vitamin C) 500 mg 500 mg PO BID 06/23/19 05/28/23 06/17/21 History tablet (Vitamin C) omega 4-xqp-jom-fish oil 1,000 mg 1 cap PO BID 06/23/19 05/28/23 12/12/19 History (120 mg-180 mg) capsule (Fish Oil) aspirin 325 mg tablet 325 mg PO QAM 06/18/21 05/28/23 06/18/21 History 324 mg cholecalciferol (vitamin D3) 25 50 mcg PO BID 06/18/21 05/28/23 Unknown History mcg (1,000 unit) tablet (Vitamin D3) cyanocobalamin (vitamin B-12) 1,000 mcg PO BID 06/18/21 05/28/23 06/17/21 History 1,000 mcg tablet (Vitamin B-12) metformin 500 mg tablet,extended 500 mg PO BID 06/18/21 05/28/23 06/17/21 History release 24 hr kcwjyusw-ac-rgbyn 300 mcg-K 60 1 tab PO BID 06/18/21 05/28/23 06/17/21 History mcg-lycop 600 mcg-lutein 300 mcg tablet (Centrum Silver Men) vit 1 tab PO BID 06/18/21 05/28/23 06/17/21 History V-rkqpqos-pqstxwgpp-rutin-ypnr112 500 mg-50 mg-25 mg-40 mg tablet ([email or web address]) nitroglycerin 0.4 mg sublingual 0.4 mg sublingual Q5M PRN chest 06/19/21 05/28/23 05/28/23 Rx tablet pain #25 tabs isosorbide mononitrate 30 mg 30 mg PO DAILY 09/04/21 05/28/23 Unknown History tablet,extended release 24 hr tamsulosin 0.4 mg capsule 0.4 mg PO DAILY 09/04/21 05/28/23 Unknown History atorvastatin 40 mg tablet 40 mg PO QAM #90 tabs 12/24/22 05/28/23 Unknown Rx albuterol sulfate 90 mcg/actuation 2 puff inhalation Q6H #8.5 grams 04/22/23 05/28/23 Unknown Rx aerosol inhaler Blood Sugar Blend 2 cap PO DAILY 05/28/23 05/28/23 Unknown History Modern Mushroom Cap 3 cap PO DAILY 05/28/23 05/28/23 Unknown History Nitric Oxide Flow 1 cap PO BID 05/28/23 05/28/23 Unknown History Tongkat Ali 1 cap PO DAILY 05/28/23 05/28/23 Unknown History ashwagandha root extract 300 mg 300 mg PO DAILY 05/28/23 05/28/23 Unknown History capsule biotin 10,000 mcg capsule 10,000 mcg PO DAILY 05/28/23 05/28/23 Unknown History clopidogrel 75 mg tablet 75 mg PO DAILY 05/28/23 05/28/23 Unknown History pantoprazole 40 mg tablet,delayed 40 mg PO DAILY 05/28/23 05/28/23 Unknown History release pioglitazone 30 mg tablet 30 mg PO DAILY 05/28/23 05/28/23 Unknown History testosterone cypionate 200 mg/mL See Rx Instructions .Route .COMPLEX 05/28/23 05/28/23 Unknown History intramuscular oil Allergies Allergy/AdvReac Type Severity Reaction Status Date / Time No Known Allergies Allergy Verified 05/28/23 15:24 PFSH Acute 2 PFSH: Medical History (Updated 05/28/23 @ 17:58 by Ole Limon MD) Type 2 diabetes mellitus History of ventricular fibrillation Ventricular fibrillation Cardiac arrest CAD (coronary artery disease) Shortness of breath Chest pain Surgical History History of coronary artery stent placement History of nasal surgery H/O knee surgery Family History Mother Diabetes Cancer Ovarian Father CAD (coronary artery disease), Onset Age: 70 Social History Smoking and tobacco/nicotine status: former use of tobacco/nicotine Second hand smoke exposure: No Alcohol intake: current Alcohol intake frequency: holidays/special occasions only Substance/Drug Use: current Lives independently: Yes Household members: spouse Marital status: Current occupational status: employed Current gender identity: Male Special hayden needs: No Vitals/I&O/Wt Last Vital Signs Pulse 79 05/28/23 16:46 Resp 18 05/28/23 16:46 BP 110/75 05/28/23 16:46 Pulse Ox 92 05/28/23 16:46 O2 Del Method Room Air 05/28/23 16:46 Weight last 48 hrs Weight 170.097 kg Physical Exam 2 Narrative: General: No acute distress, AO x3, morbidly obese HEENT: PERRLA, pupils bilaterally equal and reactive Chest: Normal vesicular breath sounds, no added sounds, equal good air entry bilaterally CVS: S1-S2 regular, no murmurs, no tachycardia, no gallops, no rubs Abdomen: Soft, nontender, no organomegaly, bowel sounds present Neuro: No focal deficits, no facial deformity, AO x3, power 5/5 in all limbs Data 05/28/23 14:17 05/28/23 14:17 A&P Assessment and plan (1) Chest pain at rest: Cardiology consulted from the ER. Possible cardiac angiogram in AM. Currently chest pain-free. Troponin cycle, echocardiogram. Continue with Plavix, aspirin, beta-mario alberto, statin. Continue with home dose of Imdur. Monitor blood pressures. N.p.o. after midnight (2) History of coronary artery stent placement: (3) Unstable angina: (4) LV dysfunction: Last known EF of 45% with echocardiogram from July 05. Repeat echocardiogram. (5) Dyslipidemia: Check lipid panel (6) Type 2 diabetes mellitus: Check A1c, start on insulin sliding scale moderate dose protocol Carb consistent diet (7) History of ventricular fibrillation: Daily monitor. (8) Morbid obesity: Plan Full code Carb consistent diet, n.p.o. after midnight Protonix for PUD prophylaxis Lovenox for DVT prophylaxis. Attestations 2 Medical Necessity Statement*: Admission for less than 2 midnights under observation for chest pain evaluation in a patient with history of CAD post PCI Diagnoses Chest pain at rest R07.9 History of coronary artery stent placement Z95.5 Unstable angina I20.0 LV dysfunction I51.9 Dyslipidemia E78.5 Type 2 diabetes mellitus E11.9 History of ventricular fibrillation Z86.79 Morbid obesity E66.01
--- NOTE | 2023-05-28 18:05 | P.CONIM_ITS ---
Providers/Reason For Consult 2 Consulting Physician/Specialty*: MIKI Funez MD/cardiology Reason for Consult*: Patient with a increasing episodes of chest pain, previous history of CAD, status post PCI, status post V-fib arrest Requesting Physician: MIKI Funez MD/cardiology Attending Physician: Ole Limon MD Primary Care Provider: Alok Gonzales MD History of Present Illness History of Present Illness Stanley Betts is a 53 year old male with a history of atherosclerotic heart disease, high blood pressure, type 2 diabetes and dyslipidemia, is presenting with complaints of increasing episodes of chest pain since this morning. He is admitted to hospital for further evaluation management. This patient has a complicated coronary history. Mr. Diana was admitted to hospital in December 2012 with features of an acute inferior wall myocardial infarction. In the emergency room, he went into V. fib arrest. He was defibrillated and was taken to the cardiac Skills Train[facility]. In the cardiac the left the Skills Trainer he again went into V. fib arrest. He was defibrillated 4 times in the Skills [facility]. He was found to have thrombotic occlusion of the right coronary artery. Primary PCI of the right coronary artery was performed by Dr. Parks. He had unremarkable recovery afterwards and was discharged home in stable condition. In June of last year, he was admitted to hospital with unstable anginal symptoms. He underwent a repeat cardiac colorization which revealed a total occlusion of the right coronary artery with fairly good collaterals. He was found to have . a high-grade lesion in the intermedius artery for which he underwent a PCI and had 2 stent placement.(Ramus: 99% stenosis treated with a AB TREK 3.00X15 RX BALLOON, ISIDRA Aragon SHAKEEL 3.5X18 FIDE, ISIDRA Aragon SHAKEEL 3.5X12 FIDE, and ISIDRA JOHNSON EUPHORA RX 4.49D99NP BALLOON. 0% residual stenosis, BOOKER: 3 flow.) . He had a mild disease in the first diagonal branch of the left anterior descending artery. The left main and the circumflex artery where free of any significant disease. The echocardiogram in June of last year revealed ejection fraction around 45%. According the patient, he has been having chest pain off and on for the last several months. But lately the episodes seems to be getting worse-more frequent and more severe This morning he woke up from sleep with chest pain/heart pounding. He had a pain radiating to the left side of the neck, left shoulder, left arm and the left leg. He took 1 sublingual nitro. Symptoms gradually subsided in 15 minutes or so. 1 hour later, he had similar episode of chest pain and heart pounding. The intensity of the symptoms were moderate. He took a second sublingual nitro at that time. Gradually symptoms subsided. He had a third episode of chest pain around 1230 or so in the afternoon. The quality of the pain was more or less similar. He called the heart care office with these symptoms. He was advised to come to the emergency room for further evaluation management. According to the patient, he has been compliant with medications. He has been experiencing easy fatigability and shortness of breath lately. His functional status seems to be slowly deteriorating. He denies any fever, chills or cough. No unusual shortness of breath. He has been compliant with medications. He smokes marijuana every evening. Accordingto the patient, he takes 3 or 4 Puffs and then quit. He also chews THC Gummies. 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 His infertility and shortness of breath as mentioned above EYES: No blurring of vision or other visual disturbances lately. ENT: No hoarseness of voice, auditory disturbances or sore throat. CARDIOVASCULAR: As mentioned above. RESPIRATORY: No significant cough. GASTROINTESTINAL: No hematemesis or melena. GENITOURINARY: No dysuria or hematuria. INTEGUMENTARY: Extensive tattooing all over the body NEURO: No transient ischemic attacks or amaurosis. PSYCHIATRIC: No history of psychosis or major depression. HEMATOLOGIC: No bleeding disorders or significant anemia. ENDOCRINE: No history of polyuria or polydipsia. MUSCULOSKELETAL: No recent joint pain or swelling. ALLERGY/IMMUNOLOGY: As mentioned above. Medications/Allergies Home Medications Medication Instructions Recorded Confirmed Last Taken Type ascorbic acid (vitamin C) 500 mg 500 mg PO BID 06/23/19 05/28/23 06/17/21 History tablet (Vitamin C) omega 5-cdz-fjs-fish oil 1,000 mg 1 cap PO BID 06/23/19 05/28/23 12/12/19 History (120 mg-180 mg) capsule (Fish Oil) aspirin 325 mg tablet 325 mg PO QAM 06/18/21 05/28/23 05/28/23 12:00 History cholecalciferol (vitamin D3) 25 50 mcg PO BID 06/18/21 05/28/23 05/28/23 12:00 History mcg (1,000 unit) tablet (Vitamin D3) cyanocobalamin (vitamin B-12) 1,000 mcg PO BID 06/18/21 05/28/23 05/28/23 12:00 History 1,000 mcg tablet (Vitamin B-12) metformin 500 mg tablet,extended 500 mg PO BID 06/18/21 05/28/23 05/28/23 12:00 History release 24 hr cexpmbrx-yx-hztrm 300 mcg-K 60 1 tab PO BID 06/18/21 05/28/23 05/28/23 12:00 History mcg-lycop 600 mcg-lutein 300 mcg tablet (Centrum Silver Men) vit 1 tab PO BID 06/18/21 05/28/23 06/17/21 History V-fsjudmh-mmllqkwoi-rutin-iecf047 500 mg-50 mg-25 mg-40 mg tablet (Bioflex) nitroglycerin 0.4 mg sublingual 0.4 mg sublingual Q5M PRN chest 06/19/21 05/28/23 05/28/23 Rx tablet pain #25 tabs isosorbide mononitrate 30 mg 30 mg PO DAILY 09/04/21 05/28/23 05/28/23 12:00 History tablet,extended release 24 hr tamsulosin 0.4 mg capsule 0.4 mg PO DAILY 09/04/21 05/28/23 05/28/23 12:00 History atorvastatin 40 mg tablet 40 mg PO QAM #90 tabs 12/24/22 05/28/23 05/28/23 12:00 Rx albuterol sulfate 90 mcg/actuation 2 puff inhalation Q6H #8.5 grams 04/22/23 05/28/23 Unknown Rx aerosol inhaler Blood Sugar Blend 2 cap PO DAILY 05/28/23 05/28/23 Unknown History Modern Mushroom Cap 3 cap PO DAILY 05/28/23 05/28/23 05/28/23 12:00 History Nitric Oxide Flow 1 cap PO BID 05/28/23 05/28/23 05/28/23 12:00 History Tongkat Ali 1 cap PO DAILY 05/28/23 05/28/23 05/28/23 12:00 History chelia root extract 300 mg 300 mg PO DAILY 05/28/23 05/28/23 05/28/23 12:00 History capsule biotin 10,000 mcg capsule 10,000 mcg PO DAILY 05/28/23 05/28/23 05/28/23 12:00 History clopidogrel 75 mg tablet 75 mg PO DAILY 05/28/23 05/28/23 05/28/23 12:00 History pantoprazole 40 mg tablet,delayed 40 mg PO DAILY 05/28/23 05/28/23 05/28/23 12:00 History release pioglitazone 30 mg tablet 30 mg PO DAILY 05/28/23 05/28/23 05/28/23 12:00 History testosterone cypionate 200 mg/mL See Rx Instructions .Route .COMPLEX 05/28/23 05/28/23 Unknown History intramuscular oil Allergies Allergy/AdvReac Type Severity Reaction Status Date / Time No Known Allergies Allergy Verified 05/28/23 15:24 PFSH Acute 2 PFSH: Medical History Type 2 diabetes mellitus History of ventricular fibrillation Ventricular fibrillation Cardiac arrest CAD (coronary artery disease) Shortness of breath Chest pain Surgical History History of coronary artery stent placement History of nasal surgery H/O knee surgery Family History Mother Diabetes Cancer Ovarian Father CAD (coronary artery disease), Onset Age: 70 Social History Smoking and tobacco/nicotine status: former use of tobacco/nicotine Second hand smoke exposure: No Alcohol intake: current Alcohol intake frequency: holidays/special occasions only Substance/Drug Use: current Lives independently: Yes Household members: spouse Marital status: Current occupational status: employed Current gender identity: Male Special hayden needs: No Vitals/I&O/Wt Last Vital Signs Pulse 79 05/28/23 16:46 Resp 18 05/28/23 16:46 BP 110/75 05/28/23 16:46 Pulse Ox 92 05/28/23 16:46 O2 Del Method Room Air 12/15/23 16:46 Weight last 48 hrs Weight 375 lb Physical Exam 2 Narrative: GENERAL: The patient is alert and oriented times three. Not in any acute distress. HEENT: No significant pallor, icterus or lymphadenopathy.Oral cavity: There are no mucous membrane lesions. NECK: Trachea appears to be central. No masses noted. No JVD or thyromegaly appreciated. RESPIRATORY: Chest is symmetrical. No intercostals muscle retraction or any accessory muscle activation. There is no chest wall tenderness. Breath sounds are heard bilaterally. No rales or rhonchi heard. No evidence of any consolidation. BREASTS: Deferred. HEART: The heart sounds are normal. No S3 or S4. No significant murmurs. No pericardial rub ABDOMEN: No vessel pulsations or distention. No tenderness. No organomegaly appreciated. Bowel sounds are normally heard. : Deferred. RECTAL: Deferred. LYMPHATIC: No lymphadenopathy noted in the neck. EXTREMITIES: No edema or cyanosis. No clubbing. MUSCULOSKELETAL: No acute joint deformities or swelling SKIN: Extensive tattoo markings all over the body, especially in the extremities NEUROPSYCHIATRIC: The patient is alert and oriented x3. Appears to be in a good mood. No tremors or rigidity noted. Data 05/28/23 14:17 05/28/23 14:17 Other Labs: Laboratory Last Values WBC 6.63 10^3/uL (3.29-11.43) 05/28/23 14:17 RBC 5.35 10^6/uL (3.85-5.65) 05/28/23 14:17 Hgb 17.30 g/dL (11.27-16.99) H 05/28/23 14:17 Hct 50.6 % (37-53) 05/28/23 14:17 MCV 94.6 fl (82-101) 05/28/23 14:17 MCH 32.3 pg (27-33) 05/28/23 14:17 MCHC 34.2 g/dL (30-55) 05/28/23 14:17 RDW 13.3 % (12.1-15.1) 05/28/23 14:17 Plt Count 140 10^3/cmm (157-399) L 05/28/23 14:17 MPV 10.2 fL (7.4-10.4) 05/28/23 14:17 Neut % (Auto) 50.5 % 05/28/23 14:17 Lymph % (Auto) 32.0 % 05/28/23 14:17 [place] % (Auto) 7.2 % 05/28/23 14:17 Eos % (Auto) 9.2 % 05/28/23 14:17 Baso % (Auto) 0.8 % 05/28/23 14:17 Neut # (Auto) 3.35 10^3/uL (1.8-7.7) 05/28/23 14:17 Lymph # (Auto) 2.1 10^3/uL (0.8-4.8) 05/28/23 14:17 [place] # (Auto) 0.5 10^3/uL (0.2-0.9) 05/28/23 14:17 Eos # (Auto) 0.6 10^3/uL (0.0-0.8) 05/28/23 14:17 Baso # (Auto) 0.1 10^3/uL (0.0-0.1) 05/28/23 14:17 Nucleated RBC % (auto) 0 % 05/28/23 14:17 Nucleated RBCs # 0.0 /100WBC 05/28/23 14:17 Sodium 136 mmol/L (136-145) 05/28/23 14:17 Potassium 4.2 mmol/L (3.5-5.1) 05/28/23 14:17 Chloride 101 mmol/L (98-107) 05/28/23 14:17 Carbon Dioxide 22 mmol/L (22-29) 05/28/23 14:17 Anion Gap 17.2 (5-19) 05/28/23 14:17 BUN 13 mg/dL (6-20) 05/28/23 14:17 Creatinine 1.0 mg/dL (0.7-1.2) 05/28/23 14:17 GFR Calculation 78.2 mL/min (90-130) L 05/28/23 14:17 Glucose 330 mg/dL (65-115) H 05/28/23 14:17 Calculated Osmolality 295 mOsm/kg (285-295) 05/28/23 14:17 Calcium 9.3 mg/dL (8.5-10.5) 05/28/23 14:17 Total Bilirubin 0.6 mg/dL (0.15-1.2) 05/28/23 14:17 AST 17 U/L (0-40) 05/28/23 14:17 ALT 27 U/L (0-41) 05/28/23 14:17 Alkaline Phosphatase 159 U/L (40-130) H 05/28/23 14:17 Troponin T Baseline 12 ng/L (0-15) 05/28/23 14:17 Troponin T 120 Minute 11.30 ng/L (0-15) 05/28/23 16:14 Delta Troponin T -0.70 ABS# (0-10) L 05/28/23 16:14 Total Protein 7.0 g/dL (6.6-8.7) 05/28/23 14:17 Albumin 4.1 g/dL (3.5-5.2) 05/28/23 14:17 Globulin 2.9 g/dL (1.3-4.6) 05/28/23 14:17 Other data: The EKG from today Normal sinus rhythm with a diffuse nonspecific T wave changes Features of old inferior wall myocardial infarction A&P Assessment and plan (1) Unstable angina: Patient symptoms has a history of unstable angina. Hemodynamically seems to be stable. EKG changes are nonspecific. No evidence of any myocardial at this time. The patient will be treated with a subcu Lovenox, beta-mario alberto, aspirin, Plavix and other current medications. (2) Atherosclerotic heart disease of [place] coronary artery with other forms of angina pectoris: In view of the patient's complicated history of coronary artery disease, for further evaluation of his coronary status, and early cardiac catheterization would be appropriate. This was discussed with the patient in the past. I agree with an early invasive approach on this patient. The patient is wanting to go ahead with the angiogram as early as possible. We may go ahead and do schedule this procedure tomorrow morning (3) Ischemic cardiomyopathy: I may go ahead and do an echocardiogram to reevaluate LV function. His LV ejection fraction was around 45% in June of last year. Based on the echocardiogram findings, further recommendations will be made. (4) History of ventricular fibrillation: Patient has not had any documented recurrence of ventricular arrhythmia. May continue on the current medication for the time being (5) Dyslipidemia: May continue current medications (6) Type 2 diabetes mellitus: Management as per the primary Qualifiers: Diabetes mellitus complication status: without complication Diabetes mellitus penitentiary insulin use: without penitentiary use Qualified Code(s): E11.9 - Type 2 diabetes mellitus without complications (7) Morbid obesity: Plan Patient the patient's clinical progress and the results of the above, further recommendations will be made Patient may be given therapeutic dose of Lovenox. Hold metformin Discussed with the patient about the cardiac catheterization. The risk of bleeding, hematoma, vascular injury, myocardial infarction, myocardial perforation, malignant cardiac arrhythmias ,CVA, renal failure and other concomitant complications were explained in detail. Patient understood this well and consented to proceed. We may go ahead and do schedule the procedure tomorrow morning Consult Attestations 2 Medical Necessity Statement: Patient requires continued hospital stay for close monitoring and further management Coding Level of Care Code 00934 Diagnoses Unstable angina I20.0 Atherosclerotic heart disease of [place] coronary artery with other forms of angina pectoris I25.118 Ischemic cardiomyopathy I25.5 History of ventricular fibrillation Z86.79 Dyslipidemia E78.5 Type 2 diabetes mellitus without complication, without long-term current use of insulin E11.9 Diabetes mellitus complication status: without complication Diabetes mellitus assistant terminal manager insulin use: without assistant terminal manager use Morbid obesity E66.01
--- NOTE | 2023-05-28 19:00 | PC.NURSE ---
admitted into room 108 from er at 1835.oriented to room environment.sr on monitor.denies chest pain at present.instructed to notify staff for any cp,sob,or for any concerns at all.pt verb understanding of instruction
[2023-05-28 19:23] LABS: Iron 80 ug/dL (59-158); Percent Saturation 25.9 % (20-50); Thyroid Stimulating Hormone 1.71 uIU/mL (0.27-4.20); Total Iron Binding Capacity 308 mcg/dl; Unsaturated Iron Binding 228 ug/dL (112-347)
[2023-05-28] MEDS: sodium chloride 0.9% 1,000 ML 75 ML IV (20:24)
[2023-05-28] MEDS: enoxaparin 40 mg/0.4 mL Syringe SUBCUT (20:26)
[2023-05-28] MEDS: enoxaparin 100 mg/mL Syringe 110 MG SUBCUT (20:26)
[2023-05-28] MEDS: cyanocobalamin 1,000 mcg Tablet 1000 MCG PO (20:26)
[2023-05-28 20:53] LABS: Troponin 5 6HR 11.73 ng/L (0-15)
[2023-05-28 20:56] LABS: Troponin 5 6HR Delta -0.27 ng/L (0-12)
--- NOTE | 2023-05-28 21:01 | ECG_ITS ---
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 [email or web address]
[2023-05-28 22:29] LABS: Glucose Point of Care 251 mg/dL (70-110)
[2023-05-29] VITALS (12 sets, daily range): BP systolic 117–145; BP diastolic 73–100; PULSE 61–82; RESP 7–22; TEMP 36.6; O2SAT 87–97; BMI 43.3
[2023-05-29 02:44] LABS: Vitamin B12 > 2000 pg/mL (232-1245)
[2023-05-29 05:47] LABS: Basophils # 0.1 10^3/uL (0.0-0.1); Basophils % 0.8 %; Eosinophils # 0.6 10^3/uL (0.0-0.8); Eosinophils % 9.2 %; Hematocrit 43.9 % (37-53); Lymphocytes # 2.3 10^3/uL (0.8-4.8); Lymphocytes % 37.9 %; Mean Corpuscular HGB Conc 33.9 g/dL (30-55); Mean Corpuscular Hemoglobin 31.8 pg (27-33); Mean Corpuscular Volume 93.8 fl (82-101); Mean Platelet Volume 10.2 fL (7.4-10.4); Monocytes # 0.5 10^3/uL (0.2-0.9); Monocytes % 7.6 %; Neutrophils # 2.73 10^3/uL (1.8-7.7); Neutrophils % 44.2 %; Nucleated Red Blood Cells % 0 %; Platelet Count 119 10^3/cmm (157-399); Red Blood Count 4.68 10^6/uL (3.85-5.65); Red Cell Distribution Width 13.6 % (12.1-15.1); White Blood Count 6.18 10^3/uL (3.29-11.43)
--- NOTE | 2023-05-29 06:00 | USCV_ITS ---
CherieStanley wen Age: 53 Gender: M : 1970 Exam Date: 05/29/2023 07:13 Ordering Phys: Larissa Funez MD ([email or web address]) Technologist: Cesar Patten Exam Location: [facility] [place] Indication: UAP BP: 135 / 82 HR: 71 Rhythm: Sinus Technical Quality: Adequate MEASUREMENTS (Male / Female) Normal Values 2D ECHO LVOT Diameter 2.0 cm LV Ejection Fraction MOD 2C 50.1 % LV Ejection Fraction 2C AL 48.6 % LA Diameter 4.4 cm LA Width 3.9 cm LA Height 5.0 cm RA Width 4.2 cm RA Height 4.7 cm Aorta at Sinotubular Diameter 3.3 cm M-MODE Aortic Annulus Diameter 3.3 cm LA Ao Ratio MM 1.3 MV E Point Septal Separation 1.1 cm FINDINGS Left Ventricle Mildly dilated LV cavity. Diffuse hypokinesia of the left ventricular ejection fraction the basal and mid inferior wall segment. LV ejection fraction on 45%. Echo contrast was (Echo contrast - Optison was used to delineate the endocardium and to estimate the LV ejection fraction) Right Ventricle Possibly of normal size and ejection fraction Right Atrium Could not be visualized well Left Atrium Possibly of normal size Mitral Valve No gross abnormalities noted Aortic Valve No gross abnormalities noted . Tricuspid Valve Could not be visualized Pulmonic Valve No gross abnormalities noted Pericardium No pericardial effusion. Aorta Aortic root is dilated, IVC CONCLUSIONS Mildly dilated LV cavity. Diffuse hypokinesia of the left ventricular ejection fraction the basal and mid inferior wall segment. LV ejection fraction on 45%. Echo contrast was (Echo contrast - Optison was used to delineate the endocardium and to estimate the LV ejection fraction). Aortic root is dilated, measuring 4.4 cm at the level of the sinuses There is no pericardial effusion. Technically very difficult study, very poor apical windows Dr Larissa Funez MD FACC (Electronically Signed) Final Date: 29 May 2023 08:47 S
[2023-05-29 06:08] LABS: Chol HDL Ratio 5.08 mg/dL (1.0-5.00); Cholesterol 122 mg/dL (0-200); HDL Cholesterol 24 mg/dL (60-100); LDL Cholesterol Calculated 41 mg/dL (50-129); LDL HDL Ratio 1.71 RATIO (0.00-3.22); Triglycerides 286 mg/dL (0-150)
[2023-05-29 06:09] LABS: Alanine Aminotransferase 20 U/L (0-41); Albumin Level 3.7 g/dL (3.5-5.2); Alkaline Phosphatase 132 U/L (40-130); Anion Gap 12.6 (5-19); Aspartate Amino Transferase 15 U/L (0-40); Blood Urea Nitrogen 16 mg/dL (6-20); Calcium 9.2 mg/dL (8.5-10.5); Carbon Dioxide 25 mmol/L (22-29); Chloride 105 mmol/L (98-107); Globulin 2.4 g/dL (1.3-4.6); Glomerular Filtration Rate 88.3 mL/min (90-130); Glucose 263 mg/dL (65-115); Magnesium 1.7 mg/dL (1.7-2.3); Osmolality Calculated 298 mOsm/kg (285-295); Phosphorus 3.1 mg/dL (2.5-4.5); Potassium 3.6 mmol/L (3.5-5.1); Sodium 139 mmol/L (136-145); Total Bilirubin 0.8 mg/dL (0.15-1.2); Total Protein 6.1 g/dL (6.6-8.7)
[2023-05-29 06:30] LABS: Estmated Average Glucose 249; Hemoglobin A1C 10.3 % (4.0-6.0)
[2023-05-29] MEDS: atorvastatin 40 mg Tablet PO (07:09)
[2023-05-29] MEDS: aspirin 325 mg Tablet PO (07:09)
[2023-05-29 07:20] LABS: Glucose Point of Care 231 mg/dL (70-110)
--- NOTE | 2023-05-29 07:47 | ECG_ITS ---
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 Measurements Intervals [place] Rate: 70 P: -39 ME: 215 QRS: 44 QRSD: 122 T: 1 QT: 410 QTc: 443 Interpretive Statements Sinus rhythm with supraventricular ectopics. Heavy baseline artifact; need to repeat Electronically Signed On 05-29-2023 18:56:26 VET ASSISTANT by Larissa Funez M.D. [id number]
[2023-05-29] MEDS: perflutren protein-a microsphr 0.22 mg/mL SDV 3 mL IV (08:03)
[2023-05-29] MEDS: cyanocobalamin 1,000 mcg Tablet 1000 MCG PO (08:14)
[2023-05-29] MEDS: clopidogrel 75 mg Tablet PO (08:15)
[2023-05-29] MEDS: tamsulosin 0.4 mg Capsule PO (08:15)
[2023-05-29] MEDS: isosorbide mononitrate ER 30 mg Tablet PO (08:15)
[2023-05-29] MEDS: pantoprazole DR 40 mg Tablet PO (08:15)
[2023-05-29] MEDS: diphenhydrAMINE 50 mg Capsule PO (09:21)
--- NOTE | 2023-05-29 09:48 | PM.PN ---
Subjective Subjective: The patient is feeling okay. Has not had any significant chest pain since the hospital admission. The cardiac enzymes are negative so far. Had PVCs and short runs of nonsustained V. tach on the monitor. No fever, chills or cough. Medications: Medication Review Details: Current Medications Acetaminophen (Acetaminophen 325 Mg Tablet) 650 mg PO Q6H PRN PRN Reason: Mild/Mod Pain Or Temp >/= 101 Aspirin (Aspirin 325 Mg Tablet) 325 mg PO QAM [facility] Last Admin: 05/29/23 07:09 Dose: 325 mg Atorvastatin Calcium (Atorvastatin 40 Mg Tablet) 40 mg PO QAM [facility] Last Admin: 05/29/23 07:09 Dose: 40 mg Bisacodyl (Bisacodyl 5 Mg Tablet) 10 mg PO DAILY PRN; Protocol PRN Reason: Constipation (see protocol) Clopidogrel Bisulfate (Clopidogrel 75 Mg Tablet) 75 mg PO DAILY [facility] Last Admin: 05/29/23 08:15 Dose: 75 mg Cyanocobalamin (Cyanocobalamin 1,000 Mcg Tablet) 1,000 mcg PO BID [facility] Last Admin: 05/29/23 08:14 Dose: 1,000 mcg Dextrose (Dextrose 50% Syringe 50 Ml) 25 ml IVP ONCE PRN; Protocol PRN Reason: hypoglycemia protocol Dextrose (Dextrose 50% Syringe 50 Ml) 50 ml IVP PRN PRN; Protocol PRN Reason: hypoglycemia protocol Enoxaparin Sodium (Enoxaparin 40 Mg/0.4 Ml Syringe) 40 mg SUBCUT Q24H [facility] Last Admin: 05/28/23 20:26 Dose: 40 mg Sodium Chloride (Sodium Chloride 0.9%) 1,000 mls @ 75 mls/hr IV .[id number] [facility] Last Admin: 05/28/23 20:24 Dose: 75 mls/hr Dextrose (D5w) 500 mls @ 0 mls/hr IV ONCE PRN; Protocol PRN Reason: Adult Acute Hypoglycemia Prot Sodium Chloride (Sodium Chloride 0.9%) 1,000 mls @ 50 mls/hr IV .Q20H ONE Stop: 05/30/23 04:59 Insulin Human Lispro (Insulin Lispro 100 Unit/1 Ml) 0 unit SUBCUT WM&BEDTIME [facility]; Protocol Last Admin: 05/29/23 08:16 Dose: Not Given Isosorbide Mononitrate (Isosorbide Mononitrate Er 30 Mg Tablet) 30 mg PO DAILY [facility] Last Admin: 05/29/23 08:15 Dose: 30 mg Lactulose (Lactulose Oral Liq 20 Gm/30 Ml Udc) 10 gm PO DAILY PRN; Protocol PRN Reason: Constipation (see protocol) Magnesium Hydroxide (Magnesium Hydroxide 30 Ml Udc) 30 ml PO DAILY PRN; Protocol PRN Reason: Constipation (see protocol) Morphine Sulfate (Morphine 4 Mg/Ml Sdv 1 Ml) 2 mg IVP Q4H PRN PRN Reason: SEVERE PAIN Ondansetron HCl (Ondansetron 2 Mg/Ml Sdv 2 Ml) 4 mg IVP Q8H PRN PRN Reason: vomiting, or N/V if npo Pantoprazole Sodium (Pantoprazole Dr 40 Mg Tablet) 40 mg PO DAILY [facility] Last Admin: 05/29/23 08:15 Dose: 40 mg Tamsulosin HCl (Tamsulosin 0.4 Mg Capsule) 0.4 mg PO DAILY [facility] Last Admin: 05/29/23 08:15 Dose: 0.4 mg Vitals/I&O/Wt Last Vital Signs Temp 97.8 F 05/29/23 07:43 Pulse 72 05/29/23 07:43 Resp 21 H 05/29/23 07:43 BP 138/99 05/29/23 07:43 Pulse Ox 97 05/29/23 07:43 O2 Del Method Room Air 05/29/23 07:43 Weight last 48 hrs Weight 375 lb Weight 375 lb Weight 375 lb Physical Exam Narrative: GENERAL: The patient is alert and oriented times three. Not in any acute distress. HEENT: No significant pallor, icterus or lymphadenopathy.Oral cavity: There are no mucous membrane lesions. NECK: Trachea appears to be central. No masses noted. No JVD or thyromegaly appreciated. RESPIRATORY: Chest is symmetrical. No intercostals muscle retraction or any accessory muscle activation. There is no chest wall tenderness. Breath sounds are heard bilaterally. No rales or rhonchi heard. No evidence of any consolidation. BREASTS: Deferred. HEART: The heart sounds are normal. No S3 or S4. No significant murmurs. No pericardial rub ABDOMEN: No vessel pulsations or distention. No tenderness. No organomegaly appreciated. Bowel sounds are normally heard. : Deferred. RECTAL: Deferred. LYMPHATIC: No lymphadenopathy noted in the neck. EXTREMITIES: No edema or cyanosis. No clubbing. MUSCULOSKELETAL: No acute joint deformities or swelling SKIN: Extensive tattoo markings all over the body, especially in the extremities NEUROPSYCHIATRIC: The patient is alert and oriented x3. Appears to be in a good mood. No tremors or rigidity noted. Data 05/29/23 05:27 05/29/23 05:27 A&P Assessment and plan (1) Unstable angina: Patient symptoms has a history of unstable angina. Hemodynamically seems to be stable. EKG changes are nonspecific. No evidence of any myocardial at this time. Will continue on the current medication. He is scheduled for the cardiac with exertion today. Based on the results, further recommendations will be made (2) Atherosclerotic heart disease of [place] coronary artery with other forms of angina pectoris: In view of the patient's complicated history of coronary artery disease, for further evaluation of his coronary status, and early cardiac catheterization would be appropriate. This was discussed with the patient in the past. I agree with an early invasive approach on this patient. The patient is wanting to go ahead with the angiogram as early as possible. We may go ahead and do schedule this procedure this morning (3) Ischemic cardiomyopathy: The echocardiogram was done last night. The LV ejection fraction was found to be around 45%. Study is a suboptimal quality. There is mild diffuse hypokinesia of the left-ventricular with the moderate hypokinesia of the basal inferior wall segment. LV cavity was found to be mildly dilated. (4) History of ventricular fibrillation: Patient has not had any documented recurrence of ventricular arrhythmia. May continue on the current medication for the time being. Has occasional PVCs and short runs of nonsustained ventricular tachycardia (5) Dyslipidemia: May continue current medications (6) Type 2 diabetes mellitus: Hemoglobin A1c was found to be around 10. He requires more aggressive management of the diabetes. 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 He seems to be keep gaining weight Plan Based on the cardiac catheterization data, further management decisions will be made. May continue on the current medication for the time being. Attestations Medical Necessity Statement*: Patient requires continued hospital stay for close monitoring and further management Coding Level of Care Code 62457 Diagnoses Unstable angina I20.0 Atherosclerotic heart disease of [place] coronary artery with other forms of angina pectoris I25.118 Ischemic cardiomyopathy I25.5 History of ventricular fibrillation Z86.79 Dyslipidemia E78.5 Type 2 diabetes mellitus without complication, without long-term current use of insulin E11.9 Diabetes mellitus termite exterminator insulin use: without termite exterminator use Diabetes mellitus complication status: without complication Morbid obesity E66.01
--- NOTE | 2023-05-29 09:52 | W.PM.OPSUD ---
Surgery/Procedure H&P Update DATE OF PROCEDURE: May 29, 2023 DATE H&P PERFORMED: 05/28/23 H&P UPDATE INFORMATION: I have reviewed H&P completed within last 30 days, I have examined patient prior to procedure and No changes to prior documentation PREOP DIAGNOSIS: Unstable angina PRIMARY INDICATION FOR PROCEDURE: Patient history of atherosclerotic heart disease, previous AL, previous V-fib arrest, multiple PCI, presenting with unstable anginal symptoms PLANNED PROCEDURE: Left heart catheterization with left and right coronary angiogram and possible PCI PATIENT REASSESSED PRIOR TO SEDATION, WITH NO CHANGE NOTED: Yes PHYSICAL EXAM: alert, oriented x 3, clear to auscultation bilaterally and regular rate & rhythm AIRWAY EVAL/ANESTHESIA PLAN: normal airway, see other exam findings, ASA III, Monitored Anesthesia, Local Anesthesia, Risks, benefits & alternatives of sedation and/or procedure discussed and Patient agrees to continue as planned
--- NOTE | 2023-05-29 10:00 | XACV_ITS ---
Exam Room: 2 Ht: 199,073 cm Gender: Male : 1970 Any Known Allergies: No known allergies Exam Priority: Routine Procedure(s): Procedure Description: Diagnostic procedure Armin QUEVEDO; Diagnostic Cath Status: Elective Diagnostic Findings * The left median extremity short vessel with no significant stenotic lesion. * The left-sided descending artery is a medium to large caliber vessel which appears to wraparound the LV apex. The proximal to the mid LAD was found to have mild diffuse intimal irregularities. The first diagonal branch was found to have 20 to 30% diffuse irregular narrowing in the proximal to mid segment. * The intermedius artery was found to have an ostial narrowing of around 30%. The proximal to mid segment was found to have a patent stented segment. No in-stent or jonathan stent stenosis. * The left circumflex artery is a medium caliber nondominant vessel which he was found to have 20 to 30% diffuse narrowing in the proximal to the mid segment of the artery. Grade 2 left to right collaterals were noted filling up the PLV and the PDA branch of the right coronary artery. * The right coronary artery was found to be totally occluded proximally. Conclusions 1. 53-year-old white male with a history of atherosclerotic heart disease, previous myocardial infarction complicated with a ventricular fibrillation, PCI of the right coronary artery and intermedius artery, is presenting with increasing episodes of chest pains, suggesting an unstable angina. Patient underwent left heart catheterization with left and right coronary angiogram and LV angiogram today. The findings are as follows. 2. Short left main with no significant lesion. Medium to large caliber left anterior descending artery with mild diffuse disease involving the proximal and mid segment. First diagonal branch was found to have 20 to 30% diffuse irregular narrowing in the proximal to mid segment. 30% ostial narrowing of the intermedius artery with a patent stent. 20 to 30% diffuse narrowing of the proximal to mid segment of the left circumflex artery. Total occlusion of the right coronary artery at the ostium. LV ejection fraction of 45%. LVEDP of 22 mmHg. Diagnostic RX Recommendation: medical therapy and/or counseling LV EDP: 22 mmHg Ventriculography Ejection Fraction: 45.0 % Left Ventriculography Findings: * The LV gram was performed in the MARTIN projection. The LV cavity appears to be upper limit of normal size. The LV filling was suboptimal. There is moderate hypokinesia of the inferior wall segments. No filling defects are noted. No significant mitral valve prolapse or mitral regurgitation. The EDP was 22 mmHg. Post angiogram EDP was 31 mmHg. The LV ejection fraction was 45%.. Pressures Phase:Rest AO : 135 / 111 ( 123 ) @ 10:24:00 AM 144 / 98 ( 121 ) @ 10:34:00 AM 144 / 99 ( 121 ) @ 10:34:00 AM LV : 144 / 1 / 22 @ 10:32:00 AM 154 / 12 / 31 @ 10:33:00 AM 157 / 12 / 35 @ 10:34:00 AM Valves Phase:DefaultPhase AV : 12.0 @ 10:43:28 AM 12.0 @ 10:43:28 AM AV Mean Gradient: 13.0 @ 10:43:28 AM Clinical Evaluation EBL: 5mL-10mL Procedural Details Pre-Procedure Time Out. Identified patient by full name and date of as verbalized by the patient/guarantor. Does the consent match the physician's order: Yes. Accurate & Complete Informed Consent: Yes. Inpatient/Outpatient History & Physical on Chart: Yes. If H&P is completed, is and addenduem needed: No; If yes, is the addendum complete: N/A. Visualize and Verify Site with Patient/Guarantor: N/A. Relevant Radiology Images available: Yes. Pre-op teaching completed and patient verbalized understanding. The risks, benefits, and alternatives of sedation and/or procedure were discussed by physician. The patient agrees to continue. Procedure started. Physician arrived. [facility] Clinical Fraility Score: 3: Managing Well. President/[employer] Indications: Suspected CAD. Chest Pain Symptom Assessment: Atypical Angina. Correct patient, site and procedure confirmed by cath team. Current diagnosis: Chest Pain. PERRLA. Strong, equal hand product safety coordinator bilaterally. Lungs clear x 5 lobes. IV Site on Arrival: 20 gauge in the left anticubital. IV Fluids: 0.9% NaCl at KVO. 0 mL infused prior to phlebotomy lab assistant. Pre Procedural Pulses: bilateral dorsalis pedis was Doppled. Pre Procedural Pulses: bilateral posterior tibial was Doppled. Pre Procedural Pulses: bilateral radial was 1+. Oxygen started at 2liters/min via nasal canula. right groin was prepped with chloroprep then draped in the usual sterile fashion. right radial was prepped with chloroprep then draped in the usual sterile fashion. Baseline sample Acquired. HR: 70 BPM. Current Diagnosis : Chest Pain. Physician scrubbed in. Immediate Pre-Procedure Time Out. Correct Patient: Yes; Correct Procedure: Yes; Correct Site: Yes; Correct Patient Position: Yes; Correct Supplies: Yes; Dried Flammable Prep: Yes; Blood Products Available: N/A;. Lidocaine 1% infiltrated to the right radial. Arterial access obtained. A 5 lao Miguel catheter in over wire. Multiple views taken of left coronary artery. Catheter redirected to the RCA. A view taken of right coronary artery. Catheter removed over the exchange wire. EDP Sample taken: LV 144/1,22; HR: 81 BPM; SpO2: 96%. LV gram performed in MARTIN @ 12 mL/second for a total of 36 mL. EDP Sample taken: LV 154/12,31; HR: 78 BPM; SpO2: 96%. Pullback taken: LV 157/12,35; AO 144/98(121); Mean: 13mmHg, Peak to Peak: 12mmHg, SEP: 18sec/min; HR: 66 BPM; SpO2: 95%. Catheter removed over the exchange wire. A TR Band was successful obtaining hemostatsis at the Right Radial artery insertion site. Post Procedure: Pulses reassessed and unchanged. PERRLA. Strong, equal hand product safety coordinator bilaterally. No VTE prophylaxis required. Medication's Wasted: Nitro = 49.8 mg. Medication's Wasted: Heparin = 1000 units. Medication's Wasted: Other = Fentanyl 25mc. Total IV fluids: 30 mL. Post-op diagnosis: Normal Coronaries. Complications: None. Estimated blood loss: 5mL-10mL. Responsiveness - Normal response to verbal stimuli; alert and oriented, PERRLA. Airway - Unaffected, no intervention required; spontaneous ventilation. Circulation: W/N/L, pulses unchanged. Nausea/Vomiting: No. Procedure completed. Patient transferred by bed to 1st floor. Vital chart was stopped. Access Site Site: Right Radial artery Sheath Size: 6 Fr Hemostasis Method: TR Band Hemostasis Success: Successful Procedure Medications Start: 10:08 AM Stop: 10:08 AM Medication: Versed 1 mg and Fentanyl 25 mcg Amount: 1 Route: I.V. Start: 10:15 AM Stop: 10:15 AM Medication: Versed 1 mg and Fentanyl 25 mcg Amount: 1 Route: I.V. Start: 10:19 AM Stop: 10:19 AM Medication: Nitrogylcerin Amount: 200 mcg Route: I.A. Start: 10:19 AM Stop: 10:19 AM Medication: Verapamil Amount: 5 mg Route: I.A. Start: 10:22 AM Stop: 10:22 AM Medication: Heparin Amount: 5000 units Route: I.V. Start: 10:30 AM Stop: 10:30 AM Medication: Fentanyl Amount: 25 mcg Route: I.V. I, the attending physician, have reviewed and verified all procedure medications. Yes, all medications given per verbal order History/Risk Factors Hypertension: No Dyslipidemia: Yes Peripheral Arterial Disease (PAD): No Myocardial Infarction (NH): Yes Obesity: Yes Renal Disease: No Tobacco Use: Former Prior Interventions PCI: Yes CABG: No Valve Surgery: No Date of PCI: 06/20/2021 Report Signatures Finalized by Dr Larissa Funez MD [facility] on 05/29/2023 07:19 PM
--- NOTE | 2023-05-29 10:46 | PC.NURSE ---
to cardiac lab associate at 1000 via w/c.
--- NOTE | 2023-05-29 11:18 | PC.NURSE ---
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
[2023-05-29 11:50] LABS: Ketones Urine Negative (Negative); Protein Urine Neg (Negative); Urine Appearance Clear (CLEAR); Urine Color Amber (Yellow); pH Urine 5 (5-7)
[2023-05-29 11:50] LABS: Glucose Point of Care 229 mg/dL (70-110)
[2023-05-29 11:51] LABS: Add Urine Culture? No; Add Urine Microscopic? YES; Amorphous Sediment Urine 1+ /hpf; Bacteria Urine TRACE /hpf; Bilirubin Urine 1+ (Negative); Blood Urine Neg (Negative); Calcium Oxalate Crystals Urine RARE /hpf; Glucose Urine UA 4+ (Normal); Leukocyte Esterase Urine Negative (Negative); Mucus Urine 1+ /hpf; Nitrate Urine Negative (Negative); Urobilinogen Urine 1 mg/dL (Negative); WBC Urine RARE /hpf (0-5)
--- NOTE | 2023-05-29 13:10 | PM.DCS ---
Discharge Providers Date of Admission: 05/28/23 17:27 Date of Discharge: May 29, 2023 Attending Provider at Admission: Ole Limon MD Attending Provider at Discharge: Ole Limon MD Consults: cardiology: Dr. 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: Status: Acute (3) Ischemic cardiomyopathy: Status: Acute (4) History of ventricular fibrillation: Status: Acute (5) Dyslipidemia: Status: Acute (6) Type 2 diabetes mellitus: Status: Acute Qualifiers: Diabetes mellitus meterman insulin use: without meterman use Diabetes mellitus complication status: without complication Qualified Code(s): E11.9 - Type 2 diabetes mellitus without complications (7) Morbid obesity: Status: Acute Reason for Visit Reason for Visit: chest pain Hospital Course Hospital Course Stanley Betts is a 53 year old male with past medical history of CAD, post PCI, post in-stent restenosis in 2021, morbid obesity, type 2 diabetes mellitus who has not seen a fisher pound net or trap in over 2 years, congestive heart failure with known EF of 45% presents to the ER today because of ongoing chest pain which woke him up today at around 3 AM. Patient also states that around 3 AM he felt as if his heart is bounding too fast and would jump out of his chest. He does give history of ventricular fibrillation in past. Patient tried nitro at home which helped him for short while but because pain kept coming back more frequently today so he presented to the ER. Patient states pain is similar to his chest pain when he had in-stent restenosis. Patient states he has been having on and off chest pain with exertion for last couple of years but he did not have insurance so did not come to the ER. Hemoglobin in the hospital and cardiology was consulted. During hospitalization did not have any chest pain. On nurse monitoring he did have episodes of nonsustained V. tach and frequent VPCs. He underwent cardiac angiogram which was concerning for right system stenosis with collaterals, patent stents (got the report telephonically. Complete cardiac [facility] report not currently available). Patient was declared safe to be discharged from cardiology team. During hospitalization patient continued to refuse insulin. A1c was found to be more than 10. Patient was counseled in detail regarding stricter blood sugar control and possibility of requiring insulin though he refused. He is agreeable to start glipizide He has been discharged hemodynamically stable condition with event monitor, glipizide has been added to his medication list and metformin dose has been increased to 1000 mg twice daily. Metoprolol could not be added because of bradycardia. Discharge plan was discussed in detail with the patient and he was given opportunities to ask questions. He has been advised to check his blood sugars regularly and maintain a blood sugar diary and follow-up with a primary care provider within next 1 week. Physical Exam Narrative: General: No acute distress, AO x3, morbidly obese HEENT: PERRLA, pupils bilaterally equal and reactive Chest: Normal vesicular breath sounds, no added sounds, equal good air entry bilaterally CVS: S1-S2 regular, no murmurs, no tachycardia, no gallops, no rubs Abdomen: Soft, nontender, no organomegaly, bowel sounds present Neuro: No focal deficits, no facial deformity, AO x3, power 5/5 in all limbs Discharge Data Studies Completed and Pending Completed Studies During Hospitalization Category Date Time Status XR chest 1V portable [id number] Stat Exams 05/28/23 13:57 Completed CV. 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 Routine Exams 05/29/23 10:00 Taken Folate Level AM LABS Lab 05/29/23 05:27 Received Laboratory Results WBC 6.18 10^3/uL (3.29-11.43) 05/29/23 05:27 RBC 4.68 10^6/uL (3.85-5.65) 05/29/23 05:27 Hgb 14.90 g/dL (11.27-16.99) 05/29/23 05:27 Hct 43.9 % (37-53) 05/29/23 05:27 MCV 93.8 fl (82-101) 05/29/23 05:27 MCH 31.8 pg (27-33) 05/29/23 05:27 MCHC 33.9 g/dL (30-55) 05/29/23 05:27 RDW 13.6 % (12.1-15.1) 05/29/23 05:27 Plt Count 119 10^3/cmm (157-399) L 12/16/23 05:27 MPV 10.2 fL (7.4-10.4) 05/29/23 05:27 Neut % (Auto) 44.2 % 05/29/23 05:27 Lymph % (Auto) 37.9 % 05/29/23 05:27 [place] % (Auto) 7.6 % 05/29/23 05:27 Eos % (Auto) 9.2 % 05/29/23 05:27 Baso % (Auto) 0.8 % 05/29/23 05:27 Neut # (Auto) 2.73 10^3/uL (1.8-7.7) 05/29/23 05:27 Lymph # (Auto) 2.3 10^3/uL (0.8-4.8) 05/29/23 05:27 [place] # (Auto) 0.5 10^3/uL (0.2-0.9) 05/29/23 05:27 Eos # (Auto) 0.6 10^3/uL (0.0-0.8) 05/29/23 05:27 Baso # (Auto) 0.1 10^3/uL (0.0-0.1) 05/29/23 05:27 Nucleated RBC % (auto) 0 % 05/29/23 05:27 Nucleated RBCs # 0.0 /100WBC 05/29/23 05:27 Sodium 139 mmol/L (136-145) 05/29/23 05:27 Potassium 3.6 mmol/L (3.5-5.1) 05/29/23 05:27 Chloride 105 mmol/L (98-107) 05/29/23 05:27 Carbon Dioxide 25 mmol/L (22-29) 05/29/23 05:27 Anion Gap 12.6 (5-19) 05/29/23 05:27 BUN 16 mg/dL (6-20) 05/29/23 05:27 Creatinine 0.9 mg/dL (0.7-1.2) 05/29/23 05:27 GFR Calculation 88.3 mL/min (90-130) L 05/29/23 05:27 Glucose 263 mg/dL (65-115) H 05/29/23 05:27 POC Glucose 229 mg/dL (70-110) H 05/29/23 11:31 Estimat Average Glucose 249 05/29/23 05:27 Hemoglobin A1c 10.3 % (4.0-6.0) H 05/29/23 05:27 Calculated Osmolality 298 mOsm/kg (285-295) H 05/29/23 05:27 Calcium 9.2 mg/dL (8.5-10.5) 05/29/23 05:27 Phosphorus 3.1 mg/dL (2.5-4.5) 05/29/23 05:27 Magnesium 1.7 mg/dL (1.7-2.3) 05/29/23 05:27 Iron 80 ug/dL (59-158) 05/28/23 14:17 TIBC 308 mcg/dl 05/28/23 14:17 % Saturation 25.9 % (20-50) 05/28/23 14:17 Unsat Iron Binding 228 ug/dL (112-347) 05/28/23 14:17 Total Bilirubin 0.8 mg/dL (0.15-1.2) 05/29/23 05:27 AST 15 U/L (0-40) 05/29/23 05:27 ALT 20 U/L (0-41) 05/29/23 05:27 Alkaline Phosphatase 132 U/L (40-130) H 05/29/23 05:27 Troponin T Baseline 12 ng/L (0-15) 05/28/23 14:17 Troponin T 120 Minute 11.30 ng/L (0-15) 05/28/23 16:14 Delta Troponin T -0.70 ABS# (0-10) L 05/28/23 16:14 Troponin T Hi Sens 6Hr 11.73 ng/L (0-15) 05/28/23 20:22 Troponin T Hi Sens 6Hr Delta -0.27 ng/L (0-12) L 05/28/23 20:22 Total Protein 6.1 g/dL (6.6-8.7) L 05/29/23 05:27 Albumin 3.7 g/dL (3.5-5.2) 05/29/23 05:27 Globulin 2.4 g/dL (1.3-4.6) 05/29/23 05:27 Triglycerides 286 mg/dL (0-150) H 05/29/23 05:27 Cholesterol 122 mg/dL (0-200) 05/29/23 05:27 LDL Cholesterol, Calc 41 mg/dL (50-129) L 05/29/23 05:27 HDL Cholesterol 24 mg/dL (60-100) L 05/29/23 05:27 LDL/HDL Ratio 1.71 RATIO (0.00-3.22) 05/29/23 05:27 Cholesterol/HDL Ratio 5.08 mg/dL (1.0-5.00) H 05/29/23 05:27 Vitamin B12 > 2000 pg/mL (232-1245) H 05/28/23 14:17 TSH 1.71 uIU/mL (0.27-4.20) 05/28/23 14:17 Urine Color Ching (Yellow) 05/29/23 09:30 Urine Appearance Clear (CLEAR) 05/29/23 09:30 Urine pH 5 (5-7) 05/29/23 09:30 Ur Specific [place] 1.030 (1.005-1.030) 05/29/23 09:30 Urine Protein Neg (Negative) 05/29/23 09:30 Urine Glucose (UA) 4+ (Normal) H 05/29/23 09:30 Urine Ketones Negative (Negative) 05/29/23 09:30 Urine Blood Neg (Negative) 05/29/23 09:30 Urine Nitrate Negative (Negative) 05/29/23 09:30 Urine Bilirubin 1+ (Negative) H 05/29/23 09:30 Prot Sulfosalicylic Acd Cancelled 05/28/23 17:29 Urine Urobilinogen 1 mg/dL (Negative) H 05/29/23 09:30 Ur Leukocyte Esterase Negative (Negative) 05/29/23 09:30 Urine RBC None /hpf (0-2) 05/29/23 09:30 Urine WBC Rare /hpf (0-5) 05/29/23 09:30 Ur Squamous Epith Cells None /hpf (0-5) 05/29/23 09:30 Calcium Oxalate Crystal Rare /hpf 05/29/23 09:30 Amorphous Sediment 1+ /hpf 05/29/23 09:30 Urine Bacteria Trace /hpf (NONE) 05/29/23 09:30 Urine Mucus 1+ /hpf 05/29/23 09:30 Additional Data from Hospital Stay Echocardiogram: CONCLUSIONS Mildly dilated LV cavity. Diffuse hypokinesia of the left ventricular ejection fraction the basal and mid inferior wall segment. LV ejection fraction on 45%. Echo contrast was (Echo contrast - Optison was used to delineate the endocardium and to estimate the LV ejection fraction). Aortic root is dilated, measuring 4.4 cm at the level of the sinuses There is no pericardial effusion. Technically very difficult study, very poor apical windows Dr Larissa Funez MD [facility] (Electronically Signed) Final Date: 29 May 2023 Vitals Last Vital Signs Temp 97.8 F 05/29/23 11:29 Pulse 61 05/29/23 11:29 Resp 19 H 05/29/23 11:29 BP 117/93 05/29/23 11:29 Pulse Ox 92 05/29/23 11:29 O2 Del Method Room Air 05/29/23 11:29 Discharge Plan Discharge Patient Disposition: Home Condition: Stable Prescriptions: New glipizide 5 mg tablet extended release 24hr 5 mg PO BID Qty: 60 0RF Continued isosorbide mononitrate 30 mg tablet extended release 24 hr 30 mg PO DAILY tamsulosin 0.4 mg capsule 0.4 mg PO DAILY albuterol sulfate 90 mcg/actuation HFA aerosol inhaler 2 puff inhalation Q6H Qty: 8.5 0RF Rx Instructions: 2 puffs inhaled every 6 hours as needed atorvastatin 40 mg tablet 40 mg PO QAM Qty: 90 0RF ascorbic acid (vitamin C) [Vitamin C] 500 mg Tablet 500 mg PO BID omega [id number] oil [Fish Oil] 1,000 mg (120 mg-180 mg) Capsule 1 cap PO BID aspirin 325 mg Tablet 325 mg PO QAM cyanocobalamin (vitamin B-12) [Vitamin B-12] 1,000 mcg Tablet 1,000 mcg PO BID cholecalciferol (vitamin D3) [Vitamin D3] 25 mcg (1,000 unit) Tablet 50 mcg PO BID Bioflex 769-70-67-40 mg Tablet 1 tab PO BID Centrum Silver Men 300-600-300 mcg Tablet 1 tab PO BID nitroglycerin 0.4 mg tablet, sublingual 0.4 mg sublingual Q5M PRN (Reason: chest pain) Qty: 25 0RF Rx Instructions: do not exceed 3 doses per episode pioglitazone 30 mg tablet 30 mg PO DAILY Blood Sugar Blend 2 cap PO DAILY Modern Mushroom Cap 3 cap PO DAILY Nitric Oxide Flow 1 cap PO BID pantoprazole 40 mg tablet,delayed release (DR/EC) 40 mg PO DAILY biotin 10,000 mcg Capsule 10,000 mcg PO DAILY testosterone cypionate 200 mg/mL oil See Rx Instructions .ROUTE .COMPLEX Rx Instructions: INJECT 0.5ML INTRAMUSCULARLY every week brett root extract 300 mg Capsule 300 mg PO DAILY Jasmyn Bonilla 1 cap PO DAILY clopidogrel 75 mg tablet 75 mg PO DAILY Changed metformin 500 mg Tablet Extended Release 24 Hr 1,000 mg PO BID Qty: 120 0RF Discharge Orders: Discharge Order (Routine); Ordered 05/29/23 Ordered By: Ole Limon Other Ambulatory Orders: MCT/Event Monitor 21 Days (Routine) Timeframe: 1 Week Facility: [facility] - Location: Radiology Ordered By: Ole Limon Referrals: lAok Gonzales MD [Primary Care Provider] - 4-7 days Gerda Calles FNP [Nurse Practitioner] - 3 weeks Discharge Diet: Cardiac and Diabetic Discharge Activity: Resume usual activity and Increase activity as tolerated Patient Instructions: Opioid Safety Discharge Attestations Time Spent in Discharge Care*: greater than 30 min Specific Discharge Activities: educating patient, discussing with pcp/other providers, discussing with immigration case worker/social workers/dc planners, documenting/other paperwork and evaluating patient/reviewing data Status at Discharge: Cognitive status at discharge: cognitively intact, Behavioral status at discharge: cooperative, Functional status at discharge: independent ambulation, Overall status at discharge: patient is back to baseline Quality Metrics Clinical Quality Measures [ No reported AMI, CVA or VTE this stay] Coding Level of Care Code 17585 Total time (in minutes) for Discharge: 60 Diagnoses Unstable angina I20.0 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
[2023-05-29 14:11] LABS: Folate Level > 20.0 ng/mL (4.5-32.2)
--- NOTE | 2023-05-29 16:37 | PC.NURSE ---
instructed in discharge instructions and diabetes education (pt not interested in this).discharged ambulatory to exit at 1550.so to drive pt home
--- NOTE | 2023-05-29 16:40 | PC.NURSE ---
tr band slowly deflated and eventually removed at 1430.site without hematoma.right hand remains warm to touch and with brisk capillary refill.site dressed with 2x2 gauze and secured with coban.
== END 2023-05-29 15:50 | disposition home or self-care (01) ==
LOC: ER 17:29 → CSU 17:47
PROVIDERS: Internal Medicine Cardiovascular Disease; Admitting Provider Student in an Organized Health Care Education/Training Program; Emergency Provider Emergency Medicine; PCP Family Medicine; Visit Provider Student in an Organized Health Care Education/Training Program
DX: I25.118 Atherosclerotic heart disease of native coronary artery with other forms of angina pectoris (principal); I25.5 Ischemic cardiomyopathy; Z86.79 Personal history of other diseases of the circulatory system; E78.5 Hyperlipidemia, unspecified; E11.9 Type 2 diabetes mellitus without complications; E66.01 Morbid (severe) obesity due to excess calories; Z68.41 Body mass index [BMI] 40.0-44.9, adult; Z95.5 Presence of coronary angioplasty implant and graft; I10 Essential (primary) hypertension; Z87.891 Personal history of nicotine dependence
CPT/HCPCS: 36415; 36416; 71045; 80053; 80061; 81001; 82607; 82746; 82962; 83036; 83540; 83550; 83735; 84100; 84443; 84484; 85025; 93005; 93458; 94664; 96365; 96372; 99152; 99153; 99285; C1769; C1887; C1894; C8924; G0378; J1644; J1650; J2250; J3010; J3490; J7030; Q0163; Q9956; Q9967

== ENCOUNTER 2023-06-23 11:26 | Outpatient (CLI) | payer OTHER, SELFPAY ==
--- NOTE | 2023-06-23 11:34 | USCV_ITS ---
Stanley Betts Age: 53 Gender: M : 1970 Exam Date: 06/23/2023 12:41 Ordering Phys: Alok Gonzales MD Technologist: Brittany Ortiz Brand Strategist [place] [facility] [facility] [place]: PAIN RIGHT LEFT Brachial 134.00 mmHg Brachial 145.00 mmHg Pressure (mmHg) Waveform Pressure (mmHg) Waveform 180.00 SLEEVE SETTER 193.00 149.00 DPA 187.00 1.24 Ankle/Brachial Index 1.33 147.00 Pre-Exercise Toe Pressure 153.00 1.01 Pre-Exercise Toe/Brachial Index 1.06 FINDINGS Resting TRENT 1.24 on the right side and 1.33 on the left side Resting TBI of 1.01 on the right and 1.06 on the left CONCLUSIONS Normal resting ABIs and TBIs bilaterally. No evidence of any significant arterial obstruction, based on the above findings. Dr Larissa Funez MD [facility] (Electronically Signed) Final Date: 23 June 2023 13:36 S
== END 2023-06-23 11:27 | disposition home or self-care (01) ==
LOC: RAD 11:28
PROVIDERS: PCP Family Medicine; Visit Provider Family Medicine
DX: I73.9 Peripheral vascular disease, unspecified (principal)
CPT/HCPCS: 93922

== ENCOUNTER 2023-06-23 13:30 | Outpatient (CLI) | payer OTHER, SELFPAY | END 2023-06-23 13:31 | disposition home or self-care (01) | LOC: SLEEP 06-24 14:32 | PROVIDERS: PCP Family Medicine; Visit Provider Family Medicine | DX: G47.33 Obstructive sleep apnea (adult) (pediatric) (principal); R09.02 Hypoxemia; G47.10 Hypersomnia, unspecified | CPT/HCPCS: G0399 ==

== ENCOUNTER → 2023-08-05 16:20 | Outpatient (BNVA) | payer OTHER, SELFPAY | PROVIDERS: PCP Family Medicine; Visit Provider Internal Medicine Cardiovascular Disease | DX: R06.02 Shortness of breath; I25.10 Atherosclerotic heart disease of native coronary artery without angina pectoris | CPT/HCPCS: 36415; 80048; 83880 ==

== ENCOUNTER → 2023-09-14 12:05 | Outpatient (BNVA) | payer OTHER, SELFPAY | PROVIDERS: PCP Family Medicine; Visit Provider Nurse Practitioner Family | DX: I25.118 Atherosclerotic heart disease of native coronary artery with other forms of angina pectoris (principal); I25.5 Ischemic cardiomyopathy; I10 Essential (primary) hypertension | CPT/HCPCS: 80048; 83880; 85025 ==

== ENCOUNTER 2025-05-31 15:35 | Outpatient (CLI) | payer OTHER, SELFPAY ==
--- NOTE | 2025-05-31 15:45 | USCV_ITS ---
Stanley Betts Age: 55 Gender: M : 1970 Exam Date: 05/31/2025 16:04 Ordering Phys: Alok Gonzales MD Technologist: NORBERT Exam Location: [facility] [place] [facility] [place] Indication: Dyspnea on exertion BP: 136 / 88 HR: 80 Rhythm: Sinus Technical Quality: Adequate MEASUREMENTS (Male / Female) Normal Values 2D ECHO LV Diastolic Diameter PLAX 7.7 cm 4.2 - 5.9 / 3.9 - 5.3 cm IVS Diastolic Thickness 0.9 cm 0.6 - 1.0 / 0.6 - 0.9 cm IVS Systolic Thickness 1.1 cm LVPW Diastolic Thickness 0.9 cm 0.6 - 1.0 / 0.6 - 0.9 cm LVPW Systolic Thickness 1.1 cm LVOT Diameter 2.4 cm LV Ejection Fraction 2D Teich 51.9 % LV Ejection Fraction MOD 4C 48.3 % LV Ejection Fraction MOD 2C 50.3 % LV Ejection Fraction 2C AL 52.8 % LA Diameter 3.8 cm RA Systolic Volume 4C AL 31.0 ml RA Systolic Volume 4C MOD 30.5 ml LA Sys Volume AL 71.2 cm cubed LA Sys Volume Index AL 24.0 cm cubed/m squared Aorta at Sinotubular Diameter 4.0 cm M-MODE LA Ao Ratio MM 1.6 AV Cusp Separation MM 2.6 cm DOPPLER AV Peak Velocity 144.0 cm/s LVOT Peak Velocity 100.0 cm/s AV Area Cont Eq vti 3.8 cm squared AV Area Cont Eq pk 3.1 cm squared MV Peak Velocity 69.0 cm/s MV Area PHT 4.2 cm squared Mitral E to A Ratio 0.7 TR Peak Velocity 101.0 cm/s TR Peak Gradient 4.1 mmHg TV Peak E Velocity 72.0 cm/s PV Peak Velocity 95.0 cm/s FINDINGS Left Ventricle Mildly increased left ventricular cavity size. Mildly decreased left ventricular systolic function 50%. Global left ventricular hypokinesis. Grade I/IV diastolic dysfunction (abnormal relaxation filling pattern), normal to mildly elevated filling pressures. Right Ventricle Normal right ventricular size and systolic function. Right Atrium Normal right atrial size. Left Atrium Normal left atrial size. IA Septum Normal appearance of the interatrial septum. Mitral Valve Mildly thickened mitral valve. No mitral valve stenosis. Trace mitral valve regurgitation. Aortic Valve Moderate aortic valve calcification. No aortic valve stenosis. Trace aortic valve regurgitation. Tricuspid Valve Normal tricuspid valve structure. No tricuspid valve stenosis or regurgitation. Normal pulmonary pressure. Pulmonic Valve Normal pulmonic valve structure. No pulmonic valve stenosis or regurgitation. Pericardium No pericardial effusion. Aorta Normal diameter of the aortic root and ascending thoracic aorta. IVC Normal IVC diameter. CONCLUSIONS Mildly increased left ventricular cavity size. Mildly decreased left ventricular systolic function 50%. Global left ventricular hypokinesis. Grade I/IV diastolic dysfunction (abnormal relaxation filling pattern), normal to mildly elevated filling pressures. Mildly thickened mitral valve. No mitral valve stenosis. Trace mitral valve regurgitation. Moderate aortic valve calcification. No aortic valve stenosis. Trace aortic valve regurgitation. There is no pericardial effusion. Right atrial pressure is around 5 mm of mercury. Nate Parks MD (Electronically Signed) Final Date: 09 June 2025 23:54 S
== END 2025-05-31 15:36 | disposition home or self-care (01) ==
LOC: RAD 15:39
PROVIDERS: PCP Family Medicine; Visit Provider Family Medicine
DX: R06.09 Other forms of dyspnea (principal); I51.7 Cardiomegaly; R93.1 Abnormal findings on diagnostic imaging of heart and coronary circulation; I51.89 Other ill-defined heart diseases; I05.9 Rheumatic mitral valve disease, unspecified; I35.8 Other nonrheumatic aortic valve disorders
CPT/HCPCS: 93306